=== PATIENT | male | born 1950 | race Caucasian/White ===

== ENCOUNTER → 2016-10-27 | Outpatient (CLI) | payer MEDICARE ==
[2016-10-27 17:16] LABS: Blood Urea Nitrogen 20 mg/dL (9-20); Non-African American GFR(MDRD) >60 (>60 ml/min/1.73 sqM)
--- NOTE | 2016-10-27 18:45 | CT ---
EXAMINATION TYPE: CT neck chest w con DATE OF EXAM: 10/27/2016 5:52 PM COMPARISON: 11/26/2015 HISTORY: Pt states of follow up after tongue CA. CT DLP: 2338.7 mGycm Automated exposure control for dose reduction was used. CONTRAST: CT scan of the neck is performed following with IV Contrast, patient injected with 100 mL of Omnipaqu e 300. Axial images are obtained, coronal and sagittal reformatted images are reviewed. FINDINGS: Trachea appears normal. There is no evidence of a pharyngeal mass. There is normal contrast opacifica tion of the carotid arteries and jugular veins. There is atherosclerotic calcification in the carotid arteries. Parotid glands are symmetric. The right submandibular salivary gland is small or absent. I see no sign of a mass involving the tongue. Thyroid gland is symmetric. There is normal branching pattern of the great vessels on the aortic arch. The lungs are clear of consolidation. There is no evidence of a pulmonary mass. I see no mediastinal adenopathy. There are no hilar masses. There is no pericardial effusion. There is no pleural effusion . There is degenerative spurring in the cervical and thoracic spine. There are multiple calcified gal lstones. There is coronary artery calcification. IMPRESSION: Gallstones. Coronary artery calcification. Atherosclerotic vascular disease. I see no ev idence of recurrent tumor or metastatic disease in this patient with a history of tongue cancer. No a dverse change compared to old exam. There is hypoplastic or absent right submandibular salivary gland without change.
== END ==
LOC: RADCTMAIN 16:03
DX: K80.80 Other cholelithiasis without obstruction (principal); I25.10 Atherosclerotic heart disease of native coronary artery without angina pectoris; I70.90 Unspecified atherosclerosis; C80.1 Malignant (primary) neoplasm, unspecified
CPT/HCPCS: 82565; 84443; 84520; 70491; 71260; 36415; Q9967

== ENCOUNTER → 2016-12-08 | Outpatient (CLI) | payer MEDICARE ==
--- NOTE | 2016-12-09 14:51 | XR ---
EXAMINATION TYPE: XR lumbosacral spine min 4V DATE OF EXAM: 12/08/2016 3:06 PM COMPARISON: NONE HISTORY: Low back pain TECHNIQUE: 5 view lumbar spine FINDINGS: Facet degenerative changes are present. There 5 lumbar-type vertebral bodies. The pedicles are intact. Spondylosis is present. Disc space narrowing is present L3-4. Posterior disc space narrow ing is present L2-3. Disc space narrowing is present to the L5-S1 disc level. IMPRESSION: 1. Degenerative disc changes and facet changes. 2. No acute osseous abnormality.
== END ==
LOC: RADXRYALE 14:48
PROVIDERS: ATTEND Physician Assistant Medical
DX: M51.36 Other intervertebral disc degeneration, lumbar region (principal)
CPT/HCPCS: 72110

== ENCOUNTER → 2017-09-14 | Outpatient (CLI) | payer MEDICARE ==
[2017-09-14 19:01] LABS: Blood Urea Nitrogen 26 mg/dL (9-20)
--- NOTE | 2017-09-15 08:37 | CT ---
EXAMINATION TYPE: CT neck chest w con DATE OF EXAM: 09/14/2017 7:37 PM COMPARISON: 10/27/2016 HISTORY: Right side lump near jaw area. Follow-up for tongue carcinoma CT DLP: 2314.5 mGycm Automated exposure control for dose reduction was used. CONTRAST: CT scan of the neck is performed following with IV Contrast, patient injected with 100 mL of Omnipaqu e 300. Axial images are obtained, coronal and sagittal reformatted images are reviewed. FINDINGS: Airway: The right piriform sinus is not well delineated, unchanged from the prior exam. No gross evid ence for tumor recurrence at the tongue base. Parotid/submandibular glands: Parotid glands are described below with slight atrophy of the right in comparison with the left and likely surgical absence of the right submandibular gland. Carotid/Vascular Structures: There is a normal anatomic branching pattern of the carotid arteries. Th ere is hemodynamically significant stenosis at the right carotid bulb of stenosis of greater than 70% (approximately 75%). The left carotid bulb is tortuous and contains approximately 60% focal stenosis over a short segment of approximately 1 cm on series 4 image 56. The internal carotid arteries demon strate no evidence of hemodynamically significant stenosis. The left vertebral artery is extremely diminutive in caliber with calcific plaquing at its origin fro m the left subclavian. The right vertebral artery is dominant. Osseous Structures: Moderate multilevel degenerative changes of the visualized cervical thoracic spin e are noted. Other: There is minimal right-sided facial skin thickening in comparison to the left, notably at the patient's described palpable abnormality on series 4 image 59 and 60. This measures up to 6 mm as opp osed to the left measuring 2 mm. Deep to the BB marker for a palpable abnormality on the vasculature in the sternocleidomastoid muscle are noted. No lymphadenopathy. The right parotid gland is minimally atrophic in comparison to the left, which may also relate to prior posttreatment change in this ina ent with a history of tongue base cancer. Moderate mucosal thickening is seen within the maxillary sinuses. Remaining visualized paranasal sinu ses are well aerated as are the mastoid air cells. LUNGS: Mild centrilobular emphysematous changes are seen within the lung apices. No new nodule, focal consolidation, or pleural effusion. Prominent subpleural fat is again noted. MEDIASTINUM: The heart is enlarged with three-vessel moderate coronary artery calcifications. No óscar opathy within the mediastinum or axilla. UPPER ABDOMEN: Multiple hypoattenuated renal lesions are seen, some of which are too small to accurat justo characterize and others represent renal cysts. Cholelithiasis is redemonstrated. Left renal sinus cyst is incidentally noted. IMPRESSION: 1. No CT abnormality deep to the BB marker for the palpable abnormality near the right jaw. The bills ocleidomastoid and vasculature are seen deep to the BB marker. However, there is asymmetric right ski n thickening in comparison to the left, which may represent posttreatment change in this patient with a history of tongue base cancer. 2. No new adenopathy within the neck or chest. No discrete mass at the tongue base to indicate recurr ence. 3. Hemodynamically significant stenosis of the right carotid bulb of greater than 70% and approximate ly 60% stenosis of the left carotid bulb. 4. Cholelithiasis, bilateral renal cysts and other renal lesions that are too small to accurately ebony racterize.
== END | disposition home or self-care (01) ==
LOC: RADCTMAIN 18:24
PROVIDERS: ATTEND Internal Medicine Hematology & Oncology
DX: C02.9 Malignant neoplasm of tongue, unspecified (principal); I65.23 Occlusion and stenosis of bilateral carotid arteries
CPT/HCPCS: 82565; 84520; 70491; 71260; 36415; Q9967

== ENCOUNTER → 2018-08-05 | Outpatient (CLI) | payer MEDICARE ==
--- NOTE | 2018-08-05 14:19 | XR ---
EXAMINATION TYPE: XR shoulder complete LT DATE OF EXAM: 08/05/2018 CLINICAL HISTORY: Increasing left shoulder pain TECHNIQUE: Three views of the left shoulder are obtained. COMPARISON: CT neck and chest October 27, 2016 FINDINGS: There is no acute fracture/dislocation evident in the left shoulder. The acromioclavicula r joint space appears within normal limits. Advanced glenohumeral joint arthropathy is seen with freddie ed joint space loss and joint space sclerosis on internally rotated view, inferior spur from medial h umeral head is noted . Overlying sternal wires and mediastinal clips are present. The visualized ribs are intact and unremarkable. IMPRESSION: There is advanced glenohumeral joint arthropathy.
== END | disposition home or self-care (01) ==
LOC: RADXRYALE 13:44
PROVIDERS: ATTEND Physician Assistant Medical
DX: M19.012 Primary osteoarthritis, left shoulder (principal)

== ENCOUNTER → 2018-09-15 | Outpatient (CLI) | payer MEDICARE ==
--- NOTE | 2018-09-15 15:53 | CT ---
EXAMINATION TYPE: CT chest w con DATE OF EXAM: 09/15/2018 COMPARISON: 09/14/2017 HISTORY: 68-year-old male Swelling to right side of neck and difficulty swallowing. History of tongue cancer. TECHNIQUE: Contiguous axial scanning of the chest after the administration of 100 mL of Isovue 300. Coronal/sagittal reconstructions performed. CT DLP: 958.19mGycm. Automatic exposure control utilized for a dose reduction. FINDINGS: Heart remains mildly enlarged without pericardial effusion. Extensive coronary vessel calcifications are present. Median sternotomy wires are present with post-CABG changes. Mild aneurysm ascending aorta 4.1 cm, relatively unchanged. Mild atherosclerotic arch calcifications with conventional arch vessel branching anatomy. Moderate atherosclerotic narrowing at the origin of the right subclavian artery, refer to axial image 9. A large caliber to the main right and left pulmonary arteries at 2.8 and 2.7 cm, respectively, sugges ts underlying pulmonary hypertension. No thoracic lymphadenopathy. Visualized upper abdomen again shows gallstones and number of hypodense renal lesions, likely cysts. Many are too small fractured CT characterization. No consolidation or pleural effusion. No suspicious pulmonary nodule or mass. Some strandy atelectasi s or scarring at the posterior lung bases and some prominent subpleural fat deposition here. Bones: Endplate spondylosis mid to lower thoracic spine. No osseous destructive process. IMPRESSION: 1. Cardiomegaly with post-CABG changes. Findings suggest underlying pulmonary arterial hypertension. 2. Stable 4.1 cm aneurysm ascending aorta. Moderate atherosclerotic narrowing at the origin of the ri ght subclavian artery. 3. No evidence for metastatic disease in the chest. 4. Cholelithiasis and redemonstrated numerous hypodense renal lesions, likely cysts.
== END | disposition home or self-care (01) ==
LOC: RADCTMAIN 12:44
PROVIDERS: ATTEND Internal Medicine Hematology & Oncology
DX: C02.9 Malignant neoplasm of tongue, unspecified (principal); I51.7 Cardiomegaly; I71.2 Thoracic aortic aneurysm, without rupture; I70.8 Atherosclerosis of other arteries; Z95.1 Presence of aortocoronary bypass graft
CPT/HCPCS: 71260

== ENCOUNTER → 2018-09-15 | Outpatient (CLI) | payer MEDICARE ==
--- NOTE | 2018-09-15 15:48 | CT ---
EXAMINATION TYPE: CT soft tissue neck w con DATE OF EXAM: 09/15/2018 COMPARISON: 09/14/2017 HISTORY: 68-year-old male Swelling to right side of neck and difficulty swallowing. History of tongue cancer. TECHNIQUE: Contiguous axial scanning of the soft tissues of the neck performed with IV Contrast, ina ent injected with 100 mL of Isovue 300. Coronal/sagittal reconstructions performed. CT DLP: 840.58 mGycm Automated exposure control for dose reduction was used. FINDINGS: Visualized intracranial structures, orbits and globes, and mastoid air cells appear clear. Trace muco alber thickening right maxillary sinus. Nasopharynx appears clear. Retropharyngeal course of the ICAs causing posterior pharyngeal impression at the level of the oropha rynx and hypopharynx. Some minimal nodularity in the region of the left vallecular space suggests evie gual tonsillar hypertrophy. Similar circumferential narrowing in the region of the hypopharynx likely due to abundant soft tissue s. Epiglottis and prevertebral soft tissues otherwise within normal limits. Glottic and subglottic structures appear within normal limits. Focal anterior indentation of the upper trachea just above the level of the sternal notch with associ ated calcification likely corresponds to a site of prior tracheostomy. Some asymmetric mild fat stranding in the subcutaneous adipose layer below the right jaw and along th e right anterolateral neck. Thyroid gland appears satisfactory. The right submandibular gland is atrophic. Bilateral parotid glan ds show no discrete abnormality. Scattered nonenlarged lymph nodes are present on both sides of the neck. No cervical lymphadenopathy identified by CT size criteria. Redemonstrated is severe atherosclerotic calcifications at the right carotid bulb and moderate at the left carotid bulb. Bones: Moderate to severe cervical spondylosis throughout. Reversal of the normal cervical lordosis. IMPRESSION: 1. Similar circumferential narrowing of the oropharynx and hypopharynx likely due to combination of a bundant soft tissues and retropharyngeal course of the ICAs. 2. Minimal nodularity in the region of the left vallecular space likely due to lingual tonsillar hype rtrophy. Direct visualization is indicated. 3. Some mild fat stranding along the right side of the neck and atrophy of the right submandibular gl and probably product of posttreatment change. 4. No suspicious neck mass or cervical lymphadenopathy seen. 5. Findings again suggest severe atherosclerotic stenosis right carotid bulb and moderate at the left carotid bulb. 6. Some deformity and associated calcifications to the anterior wall of the upper trachea likely clif esponds to the site of prior tracheostomy.
== END | disposition home or self-care (01) ==
LOC: RADCTMAIN 12:43
PROVIDERS: ATTEND Otolaryngology
DX: J39.2 Other diseases of pharynx (principal); K11.0 Atrophy of salivary gland; J39.8 Other specified diseases of upper respiratory tract
CPT/HCPCS: 82565; 84520; 70491; 36415; Q9967

== ENCOUNTER 2020-03-14 11:42 | Day surgery (SDC) | payer MEDICARE ==
[2020-03-12 09:13] VITALS: BMI 52.4
[~2020-03-14 11:42] MED LIST: DEXAMETHASONE SOD PHOSPHATE 10 MG/ML 1 ML VIAL IV ONE; ONDANSETRON 4 MG/2 ML VIAL IVP ONE; ceFAZolin 3 GM in SODIUM CHLORIDE 0.9% 100 ML IVPB ONE
[2020-03-14] MEDS ORDERED: ONDANSETRON 4 MG/2 ML VIAL ONE (12:33)
[2020-03-14] MEDS ORDERED: LIDOCAINE 1% (10MG/ML) FOR IV START INTRADERMA ONE (12:35)
[2020-03-14] MEDS: LACTATED RINGERS 1,000 ML IV SCH ×3 (12:36→17:41)
[2020-03-14 12:38] LABS: Glucose,Whole Blood 106 mg/dL (75-99)
[2020-03-14] MEDS ORDERED: MIDAZOLAM 2 MG/2 ML VIAL ONE (14:21)
[2020-03-14] MEDS ORDERED: SUCCINYLCHOLINE CHLORIDE VIAL 200 MG/10 ML VIAL IV ONE (14:21)
[2020-03-14] MEDS ORDERED: fentaNYL (PF) 50 MCG/ML 2 ML AMP ONE (14:21)
[2020-03-14] MEDS ORDERED: PROPOFOL 10 MG/ML 20 ML VIAL IV ONE (14:21)
[2020-03-14] MEDS ORDERED: LIDOCAINE 1% INJ 10MG/ML (20 ML MDV) ONE (14:21)
--- NOTE | 2020-03-14 16:19 | FL ---
EXAMINATION TYPE: FL guidance operating room, XR ankle complete LT DATE OF EXAM: 03/14/2020 CLINICAL HISTORY: Left ankle fracture. TECHNIQUE: Fluoroscopy. Complete 3 views left ankle. COMPARISON: None. FINDINGS: Fluoroscopic guidance was provided during open reduction and internal fixation procedure p erformed by Dr. Florentino. A total of roughly 25 seconds of fluoroscopic time was utilized during the pr ocedure and four spot intraoperative images are acquired. Images requires replacement lateral fixating plate with satisfactory alignment through probable fract ure lateral malleolus not well-seen on images 8. Additional tiny fixating washer at the level of medi al malleolus noted. Ankle mortise symmetry preserved. IMPRESSION: As Above.
--- NOTE | 2020-03-14 16:39 | P.OP ---
Date of Procedure: 03/14/20 Procedure(s) Performed: PREOPERATIVE DIAGNOSES: 1. Left ankle lateral malleolus comminuted displaced fracture, Kulkarni C bimalleolar-equivalent fracture 2. Left ankle syndesmosis disruption, distal tibio-fibular joint 3. Obesity POSTOPERATIVE DIAGNOSES: 1. Left ankle lateral malleolus comminuted displaced fracture 2. Left ankle syndesmosis disruption, disal tibio-fibular joint 3. Severe exogenous obesity with BMI 52. PROCEDURES PERFORMED: 1. Left ankle lateral malleolus fracture open reduction and internal fixation. 2. Left ankle reduction and fixation of syndesmosis disruption with [employer] Tightrope system ANESTHESIA: preform plate maker: Liliam Cisneros PA-C (assistance with exposure, hemostasis, retraction, fixation, closure, dressing, splint) COMPLICATIONS: None ESTIMATED BLOOD LOSS: Less than 10 mL. TOURNIQUET: approximately 70 minutes DISPOSITION: To post-anesthesia care unit INDICATIONS: The patient is an obese male with a history of borderline diabetes, who presents to the operating room today for fixation of left ankle fracture. The fracture is a Kulkarni C, with a fracture of the lateral malleolus that is high enough to produce talar instability. The medial malleolus appears intact. There does appear to be some degree of syndesmotic disruption which I plan to fix with [employer] Tightrope(s). I have discussed these issues with the patient, who wishes to proceed with the operative plan. I have explained the details of this surgery thoroughly and also explained the potential risks and complications. These are inclusive of, but not limited to: bleeding, infection, scarring, discomfort, blood vessel and nerve damage, stiffness, weakness, need for further surgery, failure to relieve symptoms, persistence or worsening of problems, , and other risks. The patient is aware of these risks, and that her risk is especially increased by his obesity, and agrees to proceed with surgery. He understands that diabetes can increase risk of several complications. The consent form has been signed. PROCEDURE: After appropriate consent was obtained, the patient was taken to the operating room and placed supine on the operating table. General anesthesia was initiated. The ankle was removed from the splint and examined for any signs of significant fracture blisters or swelling that would prevent continuation of the surgery. Skin appeared healthy and intact, swellling was moderate but not excessive. The limb was prepped and draped in the usual aseptic fashion with ChloraPrep, and the patient was given IV antibiotics. The tourniquet was then inflated to 350 mmHg after careful exsanguination of the limb. Time out was called, confirming patient identity, side, procedure, and administration of antibiotics. Incision was created laterally, centered over the fracture site, for a length of approximately 9 inches. The incision was carried down through skin and into subcutaneous tissues, and blunt dissection then proceeded down to fascia. Fascia was split in line with the incision and the peroneal muscles were retracted posteriorly. The fracture site was exposed with subperiosteal dissection for as much exposure of the bone as was necessary. Fracture hematoma was evacuated and the interior of the fracture site was meticulously cleansed with irrigation and manual extraction of organizing hematoma and bone debris. The fracture was minimally comminuted and oblique in orientation. The fracture was mobilized using a cam elevator and reduction was accomplished using a bone clamp, which was also used to secure the fracture. Anatomic reduction was accomplished. An interfragmentary screw was not able to be placed secondary to the shape of the fibula and comminution. Next, a locking fibular plate from [employer] was selected for size and side. It was minimally contoured to match the contour of the posterior lateral fibula. The proximal holes were filled with fully threaded 3.5 mm bicortical screws. Distal holes were filled with 2.7 mm cortical locking screws. A tightrope was then placed through the bottom screw hole of the lateral plate, guided with C-arm imaging. The syndesmosis was held in a reduced position with manual pressure. A clamp was used to hold the position. The syndesmosis was held together and the tight rope was then deployed and tightened. Prior to cutting the sutures, the ankle was taken through range of motion and stress testing under C-arm imaging which showed excellent reduction of both the syndesmosis and the talus. The talus was stable to external rotation force as well as lateral shuck testing and extremes of flexion and extension. Screw lengths were noted to be appropriate and the incision was then irrigated thoroughly using normal saline. Tourniquet was deflated and hemostasis was obtained using electrocautery. Fascial closure was performed with 0-Vicryl suture, subcutaneous closure with 2-0 Vicryl suture. Skin was closed with running subcuticular stitch and cyanoacrylate topical dressing. Sterile dressing was applied and well padded soft dressing was applied with the ankle in neutral. The patient's equalizer boot was placed. Patient tolerated the procedure well and taken to recovery room in stable condition. Sponge and needle counts were correct.Patient tolerated the procedure well and taken to recovery room in stable condition. Sponge and needle counts were correct.
[2020-03-14] MEDS ORDERED: diphenhydrAMINE 25 MG CAP PO PRN (16:43)
[2020-03-14] MEDS ORDERED: HYDROmorphone 0.5 MG/0.5 ML SYRINGE IVP PRN ×3 (16:43)
[2020-03-14] MEDS ORDERED: SENNOSIDES-DOCUSATE SODIUM 1 EACH TAB PO PRN (16:43)
[2020-03-14] MEDS ORDERED: HYDROcodone/APAP 5-325MG 1 EACH TAB PO PRN (16:43)
[2020-03-14] MEDS ORDERED: ONDANSETRON 4 MG/2 ML VIAL IVP PRN (16:43)
[2020-03-14] MEDS: HYDROmorphone 0.5 MG/0.5 ML SYRINGE IVP PRN ×4 (16:45→17:00)
[2020-03-14] MEDS ORDERED: ALBUTEROL NEBULIZED 2.5 MG/3 ML INHALATION ONE (16:50)
[2020-03-14] MEDS ORDERED: NON FORMULARY DRUG (Omega-3 Fatty Acids/Fish Oil [Fish Oil 1,000 Mg Softgel] 1 EACH) PO SCH (18:00)
[2020-03-14] MEDS: HYDROcodone/APAP 5-325MG 1 EACH TAB PO PRN (18:51)
[2020-03-14 20:23] LABS: Glucose,Whole Blood 163 mg/dL (75-99)
[2020-03-14] MEDS: INSULIN ASPART (NovoLOG) 100 UNIT/ML VIAL SQ SCH (20:52)
[2020-03-14] MEDS: CHOLECALCIFEROL 1,000 UNIT TAB PO SCH (20:53)
[2020-03-14] MEDS: ASPIRIN 81 MG PO SCH (20:53)
[2020-03-14] MEDS: lisinopriL 20 MG TAB PO SCH (20:55)
[2020-03-14] MEDS ORDERED: ATORVASTATIN 80 MG TAB PO SCH (21:00)
[2020-03-14] MEDS: ceFAZolin 3 GM in SODIUM CHLORIDE 0.9% 100 ML IVPB SCH (22:30)
[2020-03-15] MEDS: HEPARIN SODIUM,PORCINE 5,000 UNIT/ML 1 ML VIAL SQ SCH ×2 (00:03→08:35)
[2020-03-15] MEDS: LACTATED RINGERS 1,000 ML IV SCH ×2 (01:07→02:45)
[2020-03-15] MEDS: HYDROcodone/APAP 5-325MG 1 EACH TAB PO PRN (01:07)
--- NOTE | 2020-03-15 01:27 | CONS ---
CONSULTATION REASON FOR CONSULTATION: Advice regarding hypertension and other multiple medical issues requested by Dr. Florentino. HISTORY OF PRESENT ILLNESS: This 69-year-old gentleman with a past medical history of hypertension, hyperlipidemia, history of myocardial infarction, history of DJD being followed by Dr. Spencer Wilkins in the outpatient setting underwent left ankle lateral malleolus fracture ORIF and as well as left ankle reduction and fixation of the syndesmosis disruption with [employer] Tightrope system. The patient tolerated the procedure well. Patient is having some pain in the foot. Otherwise, there is no history of fever, rigors. No history of headache, loss of consciousness, seizures at this time. PAST MEDICAL HISTORY: History of hypertension, hyperlipidemia, myocardial infarction, DJD, history of borderline diabetes, history of CAD, CABG. MEDICATIONS: Medications prior to admission include Glucophage, Lipitor, Altace, fish oil, aspirin, metoprolol, multivitamin, Imdur, folic acid. Doses are reviewed. ALLERGIES: None. FAMILY HISTORY: History of cancer in the family. SOCIAL HISTORY: History of alcohol occasional. REVIEW OF SYSTEMS: ENT: No diminished hearing or diminished vision. CARDIOVASCULAR SYSTEM: No angina. RESPIRATORY SYSTEM: No cough or hemoptysis. GI: No nausea. : No dysuria. NERVOUS SYSTEM: No numbness or weakness. ALLERGY/IMMUNOLOGY: No asthma or hayfever. MUSCULOSKELETAL: As mentioned earlier. HEMATOLOGY: No history of anemia. ENDOCRINE: Diabetes mellitus. CONSTITUTIONAL: As mentioned earlier. DERMATOLOGY: Negative. RHEUMATOLOGY: Negative. PSYCHIATRY: As mentioned earlier. PHYSICAL EXAMINATION: The patient is alert and oriented x3. Pulse 72, blood pressure 128/69, respiration 20, temperature 97.8, pulse ox 95% on 2 L. HEENT: Conjunctivae normal. Oral mucosa moist. NECK: No jugular venous distention. No carotid bruit. No lymph node enlargement. CARDIOVASCULAR: S1, S2 muffled. No S3, no S4. RESPIRATORY: Breath sounds diminished at the bases. No rhonchi. No crackles. ABDOMEN: Soft. Nontender. No mass palpable. LEGS: Status post left ankle ORIF. NERVOUS SYSTEM: No focal deficits. SKIN: No ulcer, rash or bleeding. JOINTS: As mentioned earlier. LABS: Glucose 106. The previous labs are coags and chemistry are noted. ASSESSMENT: 1. Status post left ankle lateral malleolus fracture open reduction and internal fixation and left ankle reduction and fixation of the syndesmosis disruption. 2. Diabetes mellitus type 2. 3. Hypertension. 4. Hyperlipidemia. 5. Myocardial infarction. 6. History of degenerative joint disease. 7. History of sleep apnea. 8. History of CPAP. 9. History of coronary artery disease, coronary artery bypass grafting. 10.Remote history of nicotine dependence. 11.Obesity with body mass index of 52.5. RECOMMENDATIONS AND DISCUSSION: This 69-year-old gentleman who presented with multiple complex medical issues, we will monitor the patient closely. Continue the current medications. Continue symptomatic treatment. I would recommend resume the home medications, Accu-Cheks a.c. and at bedtime and insulin scale. Otherwise, heparin subcu for DVT prophylaxis and the home medication may be resumed. Follow the patient closely with you and patient may be asked to follow up with primary physician closely. Thank you Dr. Florentino for letting us participate in the care of this patient. MARE / SUNSHINE: [id number] /
[2020-03-15 03:31] VITALS: RESP 16
[2020-03-15] MEDS: ceFAZolin 3 GM in SODIUM CHLORIDE 0.9% 100 ML IVPB SCH (05:55)
[2020-03-15 07:30] LABS: Glucose,Whole Blood 142 mg/dL (75-99)
[2020-03-15] MEDS: INSULIN ASPART (NovoLOG) 100 UNIT/ML VIAL SQ SCH ×2 (08:35→12:25)
[2020-03-15] MEDS: ASPIRIN 81 MG PO SCH (08:36)
[2020-03-15] MEDS: lisinopriL 20 MG TAB PO SCH (08:36)
[2020-03-15] MEDS: CHOLECALCIFEROL 1,000 UNIT TAB PO SCH (08:37)
[2020-03-15] MEDS ORDERED: ISOSORBIDE MONONITRATE ER 30 MG TAB.ER.24H PO SCH (09:00)
[2020-03-15] MEDS ORDERED: METOPROLOL SUCCINATE (ER) 100 MG TAB.ER.24H PO SCH (09:00)
[2020-03-15] MEDS ORDERED: MULTIVITAMINS, THERA 1 EACH TAB PO SCH (09:00)
[2020-03-15] MEDS ORDERED: ASPIRIN 81 MG PO SCH (09:00)
[2020-03-15] MEDS ORDERED: metFORMIN 500 MG TAB PO SCH (09:00)
--- NOTE | 2020-03-15 09:26 | P.DS ---
Providers Expected date of discharge: 03/15/20 Attending physician: Collins Florentino Consults: 03/14/20 16:43 Consult Physician Routine Consulting Provider: aTrik Chirinos Consult Reason/Comments: Medical management Do you want consulting provider notified?: Yes Primary care physician: Spencer Wilkins - Discharge Diagnosis(es) (1) Fracture of ankle, left, closed Current Visit: Yes Status: Acute (2) Status post open reduction and internal fixation (ORIF) of fracture Current Visit: Yes Status: Acute Hospital Course: The patient is an obese male with a history of borderline diabetes, who presents to the operating room on 03/14/2020 for fixation of left ankle fracture. The fracture is a Kulkarni C, with a fracture of the lateral malleolus that is high enough to produce talar instability. The medial malleolus appears intact. There does appear to be some degree of syndesmotic disruption which I plan to fix with Arthrex Tightrope(s). I have discussed these issues with the patient, who wishes to proceed with the operative plan. I have explained the details of this surgery thoroughly and also explained the potential risks and complications. These are inclusive of, but not limited to: bleeding, infection, scarring, discomfort, blood vessel and nerve damage, stiffness, weakness, need for further surgery, failure to relieve symptoms, persistence or worsening of problems, , and other risks. The patient is aware of these risks, and that her risk is especially increased by his obesity, and agrees to proceed with surgery. He understands that diabetes can increase risk of several complications. The patient did very well on postoperative day 1 with physical therapy. He is up with minimal assistance. He is able to maintain nonweightbearing status to the left lower extremity. He may be discharged to home today. Please see med rec for accurate list of home medications. Plan - Discharge Summary Discharge Rx Participant: Yes New Discharge Prescriptions: New Aspirin [Adult Low Dose Aspirin EC] 81 mg PO BID #1 tablet. HYDROcodone/APAP 5-325MG [[place] 5-325] 1 - 2 each PO Q4-6H PRN #50 tab PRN Reason: Pain Sennosides-Docusate Sodium [Senokot-S] 1 tab PO BID #60 tablet No Action Isosorbide Mononitrate ER [Imdur] 30 mg PO QAM Cholecalciferol [Vitamin D3 (25 Mcg = 1000 Iu)] 1,000 unit PO BID Atorvastatin [Lipitor] 80 mg PO HS metFORMIN HCL [Glucophage] 500 mg PO QAM Ramipril [Altace] 10 mg PO BID Multivitamins, Thera [Multivitamin (formulary)] 1 tab PO QAM Metoprolol Succinate [Toprol XL] 200 mg PO QAM [place]-3 Fatty Acids/Fish Oil [Fish Oil 1,000 mg Softgel] 1 each PO QID Aspirin [Adult Low Dose Aspirin EC] 81 mg PO DAILY Discharge Medication List Aspirin [Adult Low Dose Aspirin EC] 81 mg PO DAILY 03/12/20 [History] Atorvastatin [Lipitor] 80 mg PO HS 03/12/20 [History] Cholecalciferol [Vitamin D3 (25 Mcg = 1000 Iu)] 1,000 unit PO BID 03/12/20 [ History] Isosorbide Mononitrate ER [Imdur] 30 mg PO QAM 03/12/20 [History] Metoprolol Succinate [Toprol XL] 200 mg PO QAM 03/12/20 [History] Multivitamins, Thera [Multivitamin (formulary)] 1 tab PO QAM 03/12/20 [History] [place]-3 Fatty Acids/Fish Oil [Fish Oil 1,000 mg Softgel] 1 each PO QID 03/12/20 [History] Ramipril [Altace] 10 mg PO BID 03/12/20 [History] metFORMIN HCL [Glucophage] 500 mg PO QAM 03/12/20 [History] Aspirin [Adult Low Dose Aspirin EC] 81 mg PO BID #1 tablet. 03/15/20 [Rx] HYDROcodone/APAP 5-325MG [[place] 5-325] 1 - 2 each PO Q4-6H PRN #50 tab 03/15/20 [Rx] Sennosides-Docusate Sodium [Senokot-S] 1 tab PO BID #60 tablet 03/15/20 [Rx] Follow up Appointment(s)/Referral(s): Liliam Cisneros, JAZMINE [PHYSICIAN MEDICAID SERVICE COORDINATOR] - 2 Weeks Activity/Diet/Wound Care/Special Instructions: Nonweightbearing left lower extremity with walker. May change dressing to 3 days postop but may leave in place. Equalizer boot left lower extremity. Discharge Disposition: HOME WITH HOME HEALTH SERVICES
[2020-03-15 09:47] VITALS: BP 133/74; PULSE 54; TEMP 98.6
[2020-03-15 11:37] LABS: Glucose,Whole Blood 132 mg/dL (75-99)
--- NOTE | 2020-03-15 18:33 | PN ---
PROGRESS NOTE DATE OF SERVICE: 03/15/2020 This 69-year-old gentleman who was admitted after left ankle ORIF is being closely monitored. No chest pain. No palpitations. No fever. PHYSICAL EXAMINATION: Alert and oriented x3. Pulse is 54, blood pressure 130/70, respiration 20, temperature 98.6, pulse ox 92% on 2 L. HEENT: Conjunctivae normal. NECK: No jugular venous distention. CARDIOVASCULAR SYSTEM: S1, S2 muffled. RESPIRATORY SYSTEM: Breath sounds diminished at the bases. No rhonchi. No crackles. ABDOMEN: Soft, non-tender. LEGS: Status post surgery. NERVOUS SYSTEM: No focal deficit. LABS: Accu-Cheks 142, 132. ASSESSMENT: 1. Status post left ankle lateral malleolus fracture open reduction internal fixation as well as left ankle reduction fixation of the syndesmosis disruption. 2. Diabetes mellitus, type 2. 3. Hypertension. 4. Hyperlipidemia. 5. History of myocardial infarction. 6. History of degenerative joint disease. 7. History of sleep apnea. 8. History of CPAP. 9. History of coronary artery disease, coronary artery bypass grafting. 10.Remote history of nicotine dependence. 11.Obesity with body mass index of 52.5. RECOMMENDATIONS AND DISCUSSION: I recommend to continue current medications, continue with the monitoring, symptomatic treatment. I would recommend resuming the home medications. Follow with primary physician. Continue incentive spirometry, DVT prophylaxis per Orthopedics. The rest of the recommendations per Orthopedics. Further recommendations to follow. MMESTEPHANIA / IJN: [id number] /
== END 2020-03-15 13:27 | disposition home health service (06) ==
LOC: OR 11:42 → 4SSUR 16:41 → OR 03-15 13:27
PROVIDERS: ATTEND Orthopaedic Surgery
DX: S82.62XA Displaced fracture of lateral malleolus of left fibula, initial encounter for closed fracture (principal); S93.432A Sprain of tibiofibular ligament of left ankle, initial encounter; X50.1XXA Overexertion from prolonged static or awkward postures, initial encounter; E66.01 Morbid (severe) obesity due to excess calories; E11.9 Type 2 diabetes mellitus without complications; I11.0 Hypertensive heart disease with heart failure; I50.32 Chronic diastolic (congestive) heart failure; I25.810 Atherosclerosis of coronary artery bypass graft(s) without angina pectoris; I25.5 Ischemic cardiomyopathy; I65.23 Occlusion and stenosis of bilateral carotid arteries; G47.33 Obstructive sleep apnea (adult) (pediatric); I25.10 Atherosclerotic heart disease of native coronary artery without angina pectoris; I25.2 Old myocardial infarction; E78.2 Mixed hyperlipidemia; Z79.84 Long term (current) use of oral hypoglycemic drugs; Z79.899 Other long term (current) drug therapy; Z79.82 Long term (current) use of aspirin; Z85.810 Personal history of malignant neoplasm of tongue; Z97.3 Presence of spectacles and contact lenses; Z98.890 Other specified postprocedural states; Z87.891 Personal history of nicotine dependence; Z68.43 Body mass index [BMI] 50.0-59.9, adult; Z95.1 Presence of aortocoronary bypass graft; Z82.49 Family history of ischemic heart disease and other diseases of the circulatory system
CPT/HCPCS: 97161; 97165; 73610; 27792; 27829; C1713; J2250; J0330; J1644; J1100; J0690 ×2; J2405; J2001; J3010; J2704; J1170

== ENCOUNTER → 2020-06-27 | Outpatient (CLI) | payer MEDICARE ==
--- NOTE | 2020-06-27 14:43 | CT ---
EXAMINATION TYPE: CT neck chest w con DATE OF EXAM: 06/27/2020 COMPARISON: CT chest and neck September 15, 2018 and older CTs. Prior PET CTs 2011. HISTORY: Tongue cancer progress study. Automated Exposure Control for Dose Reduction was Utilized. TECHNIQUE: CT scan of the neck and thorax are performed following with IV Contrast, patient injected with 100 mL of Isovue 300. FINDINGS: NECK: Airway: Artifact from dental work redemonstrated makes evaluation of this level slightly suboptimal. Nasopharyngeal airway remains patent. Oropharyngeal airway demonstrates slight leftward deviation wit h fullness of the left piriform sinus again seen and stable suggesting some lingular tonsillar hypert rophy. Stable circumferential soft tissue prominence in region of hypopharynx. No new suspicious foca l enhancing mass. Prior tracheostomy site with irregularity and calcification axial image 67 redemons trated. Parotid/submandibular glands: Severely atrophied or absent right submandibular gland redemonstrated. Left submandibular gland atrophy again seen. Carotid/Vascular Structures: Tortuous medial course to the carotid arteries bilaterally redemonstrate d with moderate to severe plaque at carotid bulb level again seen. Osseous Structures: Reversal of normal cervical curvature with moderate to severe multilevel disc spa ce narrowing and moderate multilevel anterior and lateral spurring. Other: Stable mild fatty infiltrate right submandibular region axial image 49. Suspect posttreatment change. Stable few prominent but subcentimeter lymph nodes. No new greater than 1 cm neck adenopathy. CHEST: LUNGS: The lungs remain grossly clear, there is no concerning new parenchymal mass or nodule identifi ed. There is no pleural effusion or pneumothorax seen. The tracheobronchial tree is patent. MEDIASTINUM: There are no new greater than 1 cm hilar or mediastinal lymph nodes. No pericardial ef fusion is seen. Cardiomegaly is redemonstrated. Post-CABG changes with mediastinal clips and sternal wires is again seen. Stable ascending aortic aneurysm up to 4.1 cm axial image 22. Prominent right a nd left pulmonary arteries are stable. OTHER: Multiple small stones in gallbladder dependently again seen. Scattered small hypodense lesions throughout both kidneys favor simple thin-walled cysts. Moderate to severe multilevel spurring in th e spine. IMPRESSION: No suspicious new mass or adenopathy to suggest active neoplastic recurrence.
== END | disposition home or self-care (01) ==
LOC: RADCTMAIN 12:51
PROVIDERS: ATTEND Internal Medicine Hematology & Oncology
DX: C02.9 Malignant neoplasm of tongue, unspecified (principal); E11.9 Type 2 diabetes mellitus without complications; Z79.84 Long term (current) use of oral hypoglycemic drugs
CPT/HCPCS: 82565; 84520; 70491; 71260; 36415; Q9967

== ENCOUNTER → 2020-07-11 | Outpatient (CLI) | payer MEDICARE ==
[2020-07-11 14:47] LABS: HCT 44.6 % (39.0-53.0); HGB 14.5 gm/dL (13.0-17.5); MCHC 32.4 g/dL (31.0-37.0); MCV 95.7 fL (80.0-100.0); Mean Platelet Volume 7.1; Platelet Count 240 k/uL (150-450); RBC 4.66 m/uL (4.30-5.90); RDW 15.1 % (11.5-15.5); WBC 9.5 k/uL (3.8-10.6)
[2020-07-11 18:45] LABS: African American GFR (CKD) 63.2 (60.0-200.0); Anion Gap 7.4 mmol/L (4.00-12.00); BUN/Creat Ratio 14.62 Ratio (12.00-20.00); Calcium 9.4 mg/dL (8.7-10.3); Carbon Dioxide 32.6 mmol/L (21.6-31.8); Non-African American GFR(CKD) 54.5 (60.0-200.0); Potassium 4.6 mmol/L (3.5-5.5)
== END | disposition home or self-care (01) ==
LOC: LABWHC1 13:37
PROVIDERS: ATTEND Internal Medicine Cardiovascular Disease
DX: I48.0 Paroxysmal atrial fibrillation (principal)
CPT/HCPCS: 36415; 80048; 84443; 85027

== ENCOUNTER → 2021-04-25 | Day surgery (SDC) | payer MEDICARE ==
[2021-04-24 08:52] VITALS: BMI 49.0
[~2021-04-25] MED LIST changes: -DEXAMETHASONE SOD PHOSPHATE 10 MG/ML 1 ML VIAL IV ONE; -ONDANSETRON 4 MG/2 ML VIAL IVP ONE; +SODIUM CHLORIDE 0.9% 1,000 ML IV SCH; -ceFAZolin 3 GM in SODIUM CHLORIDE 0.9% 100 ML IVPB ONE
== END ==
LOC: CATHEP 14:14
PROVIDERS: ATTEND Internal Medicine Clinical Cardiac Electrophysiology
DX: Z53.9 Procedure and treatment not carried out, unspecified reason (principal)

== ENCOUNTER 2021-04-30 06:09 | Day surgery (SDC) | payer MEDICARE ==
[2021-04-26 08:42] VITALS: BMI 49.0
[~2021-04-30 06:09] MED LIST changes: +LACTATED RINGERS 1,000 ML IV SCH
[2021-04-30] MEDS ORDERED: SODIUM CHLORIDE 0.9% 1,000 ML IV ONE (06:13)
[2021-04-30 06:38] LABS: Glucose,Whole Blood 137 mg/dL (75-99)
[2021-04-30 06:57] LABS: Anisocytosis Slight; Basophils % (A) 0 %; Eosinophils # (A) 0.3 k/uL (0-0.7); Eosinophils % (A) 4 %; HCT 50.3 % (39.0-53.0); HGB 16.2 gm/dL (13.0-17.5); Lymphocytes # (A) 1.8 k/uL (1.0-4.8); Lymphocytes % (A) 21 %; MCH 31.3 pg (25.0-35.0); MCHC 32.2 g/dL (31.0-37.0); MCV 97.4 fL (80.0-100.0); Macrocytosis Slight; Mean Platelet Volume 7.5; Monocytes # (A) 0.6 k/uL (0-1.0); Monocytes % (A) 7 %; Neutrophils # (A) 5.4 k/uL (1.3-7.7); Neutrophils % (A) 64 %; Platelet Count 240 k/uL (150-450); RBC 5.17 m/uL (4.30-5.90); RDW 16.6 % (11.5-15.5); WBC 8.4 k/uL (3.8-10.6)
[2021-04-30 07:12] LABS: Potassium 3.8 mmol/L (3.5-5.1)
[2021-04-30] MEDS ORDERED: DEXAMETHASONE SOD PHOSPHATE 4 MG/ML 1 ML VIAL ONE (07:29)
[2021-04-30] MEDS ORDERED: ePHEDrine SULFATE/0.9% NACL/PF 50 MG/5 ML SYRINGE IV ONE (07:29)
[2021-04-30] MEDS ORDERED: HEPARIN SODIUM,PORCINE 5,000 UNIT/ML 1 ML VIAL ONE (07:29)
[2021-04-30] MEDS ORDERED: MIDAZOLAM 2 MG/2 ML VIAL ONE (07:29)
[2021-04-30] MEDS ORDERED: SUCCINYLCHOLINE CHLORIDE 100 MG/5 ML SYR IV ONE (07:29)
[2021-04-30] MEDS ORDERED: PHENYLEPHRINE-0.9% NACL SYG 1,000 MCG/10 ML SYRINGE ONE (07:29)
[2021-04-30] MEDS ORDERED: ONDANSETRON 4 MG/2 ML VIAL ONE (07:29)
[2021-04-30] MEDS ORDERED: fentaNYL (PF) 50 MCG/ML 2 ML AMP ONE (07:29)
[2021-04-30] MEDS ORDERED: FUROSEMIDE 10 MG/ML 2 ML VIAL ONE (07:29)
[2021-04-30] MEDS ORDERED: PROPOFOL 10 MG/ML 20 ML VIAL IV ONE (07:29)
[2021-04-30] MEDS ORDERED: LIDOCAINE 1% INJ 10MG/ML (20 ML MDV) ONE (07:43)
[2021-04-30] MEDS ORDERED: LIDOCAINE 1% INJ 10MG/ML (20 ML MDV) SQ ONE (08:15)
[2021-04-30] MEDS ORDERED: HEPARIN SODIUM (1,000 UNIT/ML) 1,000 UNIT in SODIUM CHLORIDE 0.9% 1,000 ML IRRIGATION ONE (08:24)
[2021-04-30] MEDS ORDERED: ACETAMINOPHEN IV (For NPO) 1,000 MG in EMPTY BAG 1 BAG IVPB ONE (10:14)
[2021-04-30] MEDS ORDERED: ACETAMINOPHEN TAB 325 MG TAB PO PRN (10:14)
--- NOTE | 2021-04-30 10:35 | P.PRLE ---
RE: Jeremy Rooney Dear Dr. Claudette Luna underwent successful atrial flutter ablation with complete bidirectional block On intracardiac echo, his LV function appeared normal during sinus rhythm However he has a prolonged MA interval with a right bundle branch block and I would recommend stopping metoprolol at this time His right atrium is significantly enlarged and he also has an enlarged left atrium Is quite likely that in the future he will develop atrial fibrillation but this is an opportunity for some preventative care I have recommended the patient to abstain from alcohol consumption completely, continue with his CPAP/sleep apnea treatment, hypertension control and a bit of weight loss He will continue ELIQUIS and his other medications unchanged and will follow with you and Dr. Medrano as before Thank you for entrusting me with the care of the patient Warm regards Sincerely Thompson Weebr
--- NOTE | 2021-04-30 13:42 | CE ---
CARDIAC ELECTROPHYSIOLOGY REPORT Mr. Rooney is a 70-year-old male patient who has typical atrial flutter with RVR, who is on 200 mg of metoprolol. He complains of tiredness, fatigue, shortness of breath, despite rate control. He was brought in for an atrial flutter ablation. Preoperatively, a mild cardiomyopathy was also noted. The patient was brought to the EP lab in a fasting state. Written informed consent was obtained prior to the procedure. The procedure was performed under general anesthesia. Three venous sheaths were placed in the right femoral vein, and via these diagnostic and mapping and ablation and intracardiac echo catheters were placed. The patient was in atrial flutter at the start of the study, and the flutter cycle length was 264 milliseconds. Baseline measurements revealed a right bundle branch block pattern with a QRS width of 193 milliseconds, and later his AR interval was almost 250 milliseconds, QT interval 493 milliseconds, and in sinus rhythm his sinus cycle length was 811 milliseconds. AH interval during sinus rhythm was 144 milliseconds, HV interval was 74 milliseconds. In sinus rhythm, sinus node recovery times at 600 and 500 milliseconds were 1055 and 849 milliseconds. AV node Wenckebach block 220 milliseconds, VA Wenckebach block greater than 600 milliseconds. At the start of the study, entrainment mapping was performed from the cavotricuspid isthmus, and concealed entrainment was demonstrated. Following that, the patient underwent an electrical cardioversion to sinus rhythm. Atrial flutter ablation was then performed in sinus rhythm. Intracardiac echo was used to demonstrate absence of any pericardial effusion. There was no thrombus in the left atrial appendage. Smoke was noted in the right atrium. The right atrium was extremely enlarged. The left atrium was enlarged. IV heparin was given during the procedure. Three-dimensional mapping with intracardiac echo: This was followed by electroanatomic mapping of the cavotricuspid isthmus. RF ablation was performed from the tricuspid isthmus to the IVC/eustachian ridge. A complete line of block was made anatomically. Isthmus conduction times greater than 210 milliseconds in either direction. Bidirectional block was proven with differential pacing. Following ablation, intracardiac echo revealed normal LV function and the absence of any pericardial effusion and absence of any left atrial thrombus in sinus rhythm. His AH interval during sinus rhythm was 144 milliseconds and HV interval was 74 milliseconds. The patient tolerated the procedure well without any acute complications. Vascade MVP was used to seal the venous access sites. No hematoma was noted at the end of the procedure. He was extubated successfully and transferred to telemetry. IMPRESSION: Successful atrial flutter ablation with demonstration of complete bidirectional block. PROCEDURES PERFORMED: Comprehensive diagnostic EP study, CS pacing recording, 3D electroanatomic mapping, intracardiac echo, electrical cardioversion, and ablation for atrial flutter. MMODL / IJN: [id number] /
[2021-04-30] MEDS ORDERED: ATORVASTATIN 80 MG TAB PO SCH (21:00)
[2021-04-30] MEDS: lisinopriL 20 MG TAB PO SCH (22:01)
[2021-04-30] MEDS: APIXABAN 5 MG TAB PO SCH (22:01)
[2021-04-30] MEDS: ASPIRIN 81 MG PO SCH (22:01)
[2021-05-01 07:45] VITALS: BP 138/78; PULSE 82; RESP 14; TEMP 97.7
[2021-05-01] MEDS: lisinopriL 20 MG TAB PO SCH (08:19)
[2021-05-01] MEDS: APIXABAN 5 MG TAB PO SCH (08:19)
[2021-05-01] MEDS: ASPIRIN 81 MG PO SCH (08:19)
[2021-05-01] MEDS ORDERED: METOPROLOL SUCCINATE 200 MG PO SCH (09:00)
[2021-05-01] MEDS ORDERED: metFORMIN 500 MG TAB PO SCH (09:00)
[2021-05-01] MEDS ORDERED: FUROSEMIDE 20 MG TAB PO SCH (09:00)
--- NOTE | 2021-05-01 16:50 | DS ---
DISCHARGE SUMMARY Jeremy Rooney is a 70-year-old male patient of Dr. Arce and Dr. Wilkins who has typical atrial flutter and is very symptomatic from it. He underwent successful atrial flutter ablation. Today this morning he is ambulating around the hallways. His breathing is a lot better. He feels a lot better. His heart sounds are normal. His blood pressure is in the normal range. His groins have healed well. Lungs are clear. IMPRESSION: 1. Typical atrial flutter sustained and persistent. 2. Successful atrial flutter ablation. 3. Right bundle branch block with first-degree AV block and bradycardia. 4. Morbid obesity. 5. Obstructive sleep apnea. 6. History of alcohol use, patient is cutting down alcohol intake. PLAN: 1. Stop metoprolol completely. He will see Dr. Arce in a week's time and we will perhaps resume beta blockers at lower dose depending upon his NE interval and his heart rate. He does have a prolonged QT interval as well as right bundle branch block and tendency for bradycardia. 2. Weight reduction. 3. Complete abstinence from alcohol use. 4. Sleep apnea treatment. 5. Weight reduction for morbid obesity. The patient may go home today. He must continue anticoagulation and see Dr. Arce in a week's time. MMODL / IJN: [id number] /
== END 2021-05-01 10:57 | disposition home or self-care (01) ==
LOC: CATHEP 06:09 → 6NMEDSUR 10:53 → CATHEP 05-01 10:57
PROVIDERS: ATTEND Internal Medicine Clinical Cardiac Electrophysiology
DX: I48.3 Typical atrial flutter (principal); I42.9 Cardiomyopathy, unspecified; I45.10 Unspecified right bundle-branch block; G47.33 Obstructive sleep apnea (adult) (pediatric); Z87.891 Personal history of nicotine dependence; I48.91 Unspecified atrial fibrillation; E78.5 Hyperlipidemia, unspecified; I11.0 Hypertensive heart disease with heart failure; I50.9 Heart failure, unspecified; Z95.1 Presence of aortocoronary bypass graft; Z79.899 Other long term (current) drug therapy; Z85.810 Personal history of malignant neoplasm of tongue; Z92.3 Personal history of irradiation
CPT/HCPCS: 92960; 93662; 93613; 93653; 80048; 84443; 85025; C1894 ×2; C1769 ×2; C1760; C1766; C1730; C1759; C1732; J2250; J1644 ×2; J1100; J1940; J2405; J2001; J3010; J0131; J2370; J0330; J2704

== ENCOUNTER → 2021-07-30 | Day surgery (SDC) | payer MEDICARE ==
[2021-07-26 14:24] VITALS: BMI 50.1
[2021-07-30 08:46] LABS: Glucose,Whole Blood 137 mg/dL (75-99)
[2021-07-30 08:47] VITALS: BP 206/131; PULSE 97; RESP 18; TEMP 98.2
--- NOTE | 2021-07-30 10:34 | P.HPCAR ---
History of Present Illness This is Dr. Weber dictating an H/P and discharge on this patient The patient was interviewed and examined IMPRESSION / ASSESSMENT: History of atrial fibrillation, symptomatic with tiredness fatigue shortness of breath Status post atrial flutter ablation in the past Right bundle-branch block, first-degree AV block to sinus rhythm Central obesity PLAN: Patient was scheduled for cryoablation the pulmonary veins today for A. fib management He denied any fever or chills but he did have symptoms prior to Thanksgiving Today his PCR covid test is positive and the procedure is being canceled and rescheduled after a month He is being discharged home He is stable from a respiratory standpoint no shortness of breath at rest or c ough expectoration HPI Patient has a history of atrial fibrillation. He complains of tiredness fatigue and shortness of breath He also has swelling in the legs. No chest discomfort no loss of consciousness Prior to he had a cough but he did not get tested for covid He was supposed to get his Covid test done 72 hours prior to the procedure However he did not get this test done This morning his Covid test is positive The procedure was canceled. He is being discharged home. He is stable from a respiratory and a cardio vascular standpoint He's been asked quarantine for the next 14 days and follow-up with his PCP thereafter If there is any change in symptoms he will call his PCP We will reschedule the procedure after one month ROS: No fever chills or rigors, no cough, phlegm or expectoration, no nausea, vomiting or diarrhea, no hematuria, dysuria, no musculoskeletal complaints, no strokes or seizures, no skin lesions. EXAMINATION: Afebrile 98.2F, pulse rate in the 90s regular, blood pressure 175/85 Nonlabored breathing Able to lie flat in bed comfortably Wet sounds are reduced bilaterally no rhonchi no crackles Heart sounds S1 and S2 are normal no murmurs No lower extremity edema Abdomen is soft No JVD REVIEW OF LABS, ECG & MEDICAL DATA Positive Covid test White count 8000, hemoglobin 16.5, platelet count 259,000 Sodium 144, potassium 4.5 BUN 18 and creatinine 1.3 Discharge summary line patient came in for an A. fib ablation He has had symptoms about 2 weeks back with cough but he was not tested for Covid He is Covid positive today He'll be discharged home today and we will reschedule procedure after 4 weeks He is stable from a cardiovascular standpoint He will continue his cardiac medications including metoprolol succinate ELIQUIS 5 mg twice daily aspirin atorvastatin He may continue his diabetes medications and ramipril Physical Exam Vitals: Vital Signs Temp Pulse Resp BP Pulse Ox 07/30/21 09:12 175/85 07/30/21 08:46 98.2 F 97 18 206/131 95 Intake and Output 07/29/21 07/30/21 07/30/21 22:59 06:59 14:59 Intake Total 20 Balance 20 Intake: IV 20 Other: Weight 141.3 kg Past Medical History Past Medical History: Atrial Fibrillation, Atrial Flutter, Cancer, Diabetes Mellitus, Hyperlipidemia, Hypertension, Myocardial Infarction (ID), Osteoarthritis (OA), Sleep Apnea/CPAP/BIPAP Additional Past Medical History / Comment(s): Hx Cancer of tongue, 8 yrs ago. Borderline Diabetic. Uses CPAP. SEE DR WEBER H&P Last Myocardial Infarction Date:: 20 yrs History of Any Multi-Drug Resistant Organisms: None Reported Past Surgical History: Coronary Bypass/CABG, Orthopedic Surgery Additional Past Surgical History / Comment(s): Quadruple Bypass 15 yrs ago, surgery of tongue 8, Lymph Node removed from leg. 8 screws, and 9 inch plate to repair fx left ankle, tracheostomy and then closed Past Anesthesia/Blood Transfusion Reactions: No Reported Reaction Additional Past Anesthesia/Blood Transfusion Reaction / Comment(s): hx of tracheostomy Smoking Status: Former smoker - Past Family History Daughter(s) Family Medical History: Cancer Physical Examination Vital Signs Temp Pulse Resp BP Pulse Ox 07/30/21 09:12 175/85 07/30/21 08:46 98.2 F 97 18 206/131 95 Intake and Output 07/29/21 07/30/21 07/30/21 22:59 06:59 14:59 Intake Total 20 Balance 20 Intake: IV 20 Other: Weight 141.3 kg Results Current Medications Generic Name Dose Route Start Last Admin Trade Name Freq PRN Reason Stop Dose Admin Lactated Ringer's 1,000 mls @ 20 mls/hr 07/30/21 06:08 Lactated Ringers IV 08/29/21 06:09 .Q24H RUBY Sodium Chloride 1,000 mls @ 20 mls/hr 07/30/21 06:08 07/30/21 08:48 Saline 0.9% IV 08/29/21 06:09 20 mls .Q24H RUBY Administration Intake and Output 07/29/21 07/30/21 07/30/21 22:59 06:59 14:59 Intake Total 20 Balance 20 Intake: IV 20 Other: Weight 141.3 kg Patient Weight 07/31/21 06:59 Weight 141.3 kg
--- NOTE | 2021-07-30 10:36 | P.DS ---
Providers Attending physician: Thompson Weber Primary care physician: [facility] Course: IMPRESSION / ASSESSMENT: History of atrial fibrillation, symptomatic with tiredness fatigue shortness of breath Status post atrial flutter ablation in the past Right bundle-branch block, first-degree AV block to sinus rhythm Central obesity PLAN: Patient was scheduled for cryoablation the pulmonary veins today for A. fib management He denied any fever or chills but he did have symptoms prior to Thanksgiving Today his PCR covid test is positive and the procedure is being canceled and rescheduled after a month He is being discharged home He is stable from a respiratory standpoint no shortness of breath at rest or cough expectoration HPI Patient has a history of atrial fibrillation. He complains of tiredness fatigue and shortness of breath He also has swelling in the legs. No chest discomfort no loss of consciousness Prior to he had a cough but he did not get tested for covid He was supposed to get his Covid test done 72 hours prior to the procedure However he did not get this test done This morning his Covid test is positive The procedure was canceled. He is being discharged home. He is stable from a respiratory and a cardio vascular standpoint He's been asked quarantine for the next 14 days and follow-up with his PCP thereafter If there is any change in symptoms he will call his PCP We will reschedule the procedure after one month ROS: No fever chills or rigors, no cough, phlegm or expectoration, no nausea, vomiting or diarrhea, no hematuria, dysuria, no musculoskeletal complaints, no strokes or seizures, no skin lesions. EXAMINATION: Afebrile 98.2F, pulse rate in the 90s regular, blood pressure 175/85 Nonlabored breathing Able to lie flat in bed comfortably Wet sounds are reduced bilaterally no rhonchi no crackles Heart sounds S1 and S2 are normal no murmurs No lower extremity edema Abdomen is soft No JVD REVIEW OF LABS, ECG & MEDICAL DATA Positive Covid test White count 8000, hemoglobin 16.5, platelet count 259,000 Sodium 144, potassium 4.5 BUN 18 and creatinine 1.3 Discharge summary patient came in for an A. fib ablation He has had symptoms about 2 weeks back with cough but he was not tested for Covid He is Covid positive today He'll be discharged home today and we will reschedule procedure after 4 weeks He is stable from a cardiovascular standpoint He will continue his cardiac medications including metoprolol succinate ELIQUIS 5 mg twice daily aspirin atorvastatin He may continue his diabetes medications and ramipril Plan - Discharge Summary Discharge Rx Participant: No New Discharge Prescriptions: No Action Isosorbide Mononitrate ER [Imdur] 30 mg PO QAM Cholecalciferol [Vitamin D3 (25 Mcg = 1000 Iu)] 1,000 unit PO BID Atorvastatin [Lipitor] 80 mg PO HS metFORMIN HCL [Glucophage] 500 mg PO QAM Ramipril [Altace] 10 mg PO BID Multivitamins, Thera [Multivitamin (formulary)] 1 tab PO QAM Aspirin [Adult Low Dose Aspirin EC] 81 mg PO BID #1 tablet. Furosemide [Lasix] 20 mg PO DAILY Apixaban [Eliquis] 5 mg PO BID Metoprolol Succinate (ER) [Toprol Xl] 50 mg PO DAILY Discharge Medication List Atorvastatin [Lipitor] 80 mg PO HS 03/12/20 [History] Cholecalciferol [Vitamin D3 (25 Mcg = 1000 Iu)] 1,000 unit PO BID 03/12/20 [History] Isosorbide Mononitrate ER [Imdur] 30 mg PO QAM 03/12/20 [History] Multivitamins, Thera [Multivitamin (formulary)] 1 tab PO QAM 03/12/20 [History] Ramipril [Altace] 10 mg PO BID 03/12/20 [History] metFORMIN HCL [Glucophage] 500 mg PO QAM 03/12/20 [History] Aspirin [Adult Low Dose Aspirin EC] 81 mg PO BID #1 tablet. 03/15/20 [Rx] Apixaban [Eliquis] 5 mg PO BID 04/24/21 [History] Furosemide [Lasix] 20 mg PO DAILY 04/24/21 [History] Metoprolol Succinate (ER) [Toprol Xl] 50 mg PO DAILY 07/26/21 [History]
== END ==
LOC: CATHEP 08:01
PROVIDERS: ATTEND Internal Medicine Clinical Cardiac Electrophysiology
DX: I48.91 Unspecified atrial fibrillation (principal); U07.1 COVID-19; Z53.8 Procedure and treatment not carried out for other reasons; R53.83 Other fatigue; R06.02 Shortness of breath; I48.92 Unspecified atrial flutter; I45.10 Unspecified right bundle-branch block; I44.30 Unspecified atrioventricular block
CPT/HCPCS: 87635

== ENCOUNTER → 2021-08-13 | Outpatient (CLI) | payer MEDICARE ==
--- NOTE | 2021-08-13 15:58 | XR ---
Right finger HISTORY: Swelling and pain 2 views the right finger At the level the proximal interphalangeal joint of the fifth digit of the right hand there is margina l erosion, overhanging edges, cystic lucency within the adjoining bone, question some small soft tiss ue calcifications. There is associated soft tissue swelling. IMPRESSION: Findings consistent with gout, infection felt to be less likely, correlate.
== END | disposition home or self-care (01) ==
LOC: RADXRYALE 15:19
PROVIDERS: ATTEND Family Medicine
DX: M79.644 Pain in right finger(s) (principal); M79.89 Other specified soft tissue disorders

== ENCOUNTER → 2021-09-02 | Outpatient (CLI) | payer MEDICARE ==
[2021-09-02 10:17] LABS: HCT 50.1 % (39.0-53.0); HGB 15.9 gm/dL (13.0-17.5); MCH 31.8 pg (25.0-35.0); MCHC 31.8 g/dL (31.0-37.0); MCV 99.9 fL (80.0-100.0); Macrocytosis Slight; Mean Platelet Volume 7.6; Platelet Count 210 k/uL (150-450); RBC 5.01 m/uL (4.30-5.90); RDW 14.5 % (11.5-15.5); WBC 8.3 k/uL (3.8-10.6)
[2021-09-02 10:55] LABS: Potassium 4.8 mmol/L (3.5-5.1)
== END | disposition home or self-care (01) ==
LOC: LABPAT 08:58
PROVIDERS: ATTEND Internal Medicine Clinical Cardiac Electrophysiology
DX: Z01.812 Encounter for preprocedural laboratory examination (principal); I48.11 Longstanding persistent atrial fibrillation; Z20.822 Contact with and (suspected) exposure to COVID-19
CPT/HCPCS: 80051; 82565; 84520; 85027; 36415; U0003; C9803

== ENCOUNTER 2021-09-05 11:23 | Day surgery (SDC) | payer MEDICARE ==
[2021-08-29 09:31] VITALS: BMI 50.8
[~2021-09-05 11:23] MED LIST changes: +DEXAMETHASONE SOD PHOSPHATE 4 MG/ML 1 ML VIAL IV ONE; +LIDOCAINE 1% (10MG/ML) FOR IV START INTRADERMA PRN; +MORPHINE SULFATE 2 MG/ML SYRINGE IV PRN; +ONDANSETRON 4 MG/2 ML VIAL IVP PRN
[2021-09-05] MEDS ORDERED: SODIUM CHLORIDE 0.9% 1,000 ML IV ONE (11:40)
[2021-09-05 12:04] LABS: Glucose,Whole Blood 127 mg/dL (75-99)
[2021-09-05] MEDS ORDERED: PROPOFOL 10 MG/ML 20 ML VIAL IV ONE (13:10)
[2021-09-05] MEDS ORDERED: MIDAZOLAM 2 MG/2 ML VIAL ONE (13:10)
[2021-09-05] MEDS ORDERED: ceFAZolin 1,000 MG VIAL ONE (13:10)
[2021-09-05] MEDS ORDERED: ePHEDrine 50 MG/ML 1 ML AMP ONE (13:10)
[2021-09-05] MEDS ORDERED: fentaNYL (PF) 50 MCG/ML 2 ML AMP ONE (13:10)
[2021-09-05] MEDS ORDERED: SUCCINYLCHOLINE CHLORIDE VIAL 200 MG/10 ML VIAL IV ONE (13:10)
[2021-09-05] MEDS ORDERED: HEPARIN SODIUM,PORCINE 10,000 UNIT/ML 1 ML VIAL ONE (13:10)
[2021-09-05] MEDS ORDERED: SODIUM CHLORIDE 0.9% 100 ML BAG ONE (13:10)
[2021-09-05] MEDS ORDERED: PHENYLEPHRINE-0.9% NACL SYG 1,000 MCG/10 ML SYRINGE ONE (13:10)
[2021-09-05] MEDS ORDERED: LIDOCAINE 1% INJ 10MG/ML (20 ML MDV) ONE ×2 (13:10→13:58)
[2021-09-05] MEDS ORDERED: HEPARIN SOD,PORK IN 0.45% NACL 25,000 UNIT in 0.45% NACL 1 250ML.BAG IV ONE (13:56)
[2021-09-05] MEDS ORDERED: LIDOCAINE 1% INJ 10MG/ML (20 ML MDV) SQ ONE (14:00)
[2021-09-05] MEDS ORDERED: ACETAMINOPHEN TAB 325 MG TAB PO PRN (16:16)
[2021-09-05] MEDS ORDERED: IOPAMIDOL-370 100ML BTL INJ ONE (16:22)
[2021-09-05] MEDS ORDERED: LACTATED RINGERS 1,000 ML IV ONE (16:26)
--- NOTE | 2021-09-05 16:28 | P.HPCAR ---
History of Present Illness This is Dr. 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 fib ablation Continue ELIQUIS HPI Patient continues to have shortness of breath on exertion. He has a mild cardio myopathy He complains of palpitations He was supposed to have this procedure performed last month but he developed cold. He is a call from this completely No cough expectoration no fever chills ROS: No fever chills or rigors, no cough, phlegm or expectoration, no nausea, vomiting or diarrhea, no hematuria, dysuria, no musculoskeletal complaints, no strokes or seizures, no skin lesions. EXAMINATION: He is resting comfortably in bed Breath sounds are clear no rhonchi no crackles Heart sounds are irregular No lower extremity edema No JVD No orthopnea REVIEW OF LABS, ECG & MEDICAL DATA Glucose 127 Sodium 139 potassium 4.8 BUN 35 creatinine 1.2 TSH 3.6 Physical Exam Vitals: Vital Signs Temp Pulse Resp BP Pulse Ox 09/05/21 12:21 98.2 F 94 20 200/97 92 L Intake and Output 09/05/21 09/05/21 09/05/21 06:59 14:59 22:59 Intake Total 1045 Balance 1045 Intake: IV 1045 Other: Weight 145.7 kg Past Medical History Past Medical History: Atrial Fibrillation, Cancer, Diabetes Mellitus, Hyperlipidemia, Hypertension, Myocardial Infarction (RI), Osteoarthritis (OA), Sleep Apnea/CPAP/BIPAP Additional Past Medical History / Comment(s): Hx Cancer of tongue, 8 yrs ago. Borderline Diabetic. Uses CPAP. SEE DR WEBER H&P Last Myocardial Infarction Date:: 20 yrs History of Any Multi-Drug Resistant Organisms: None Reported Past Surgical History: Coronary Bypass/CABG Additional Past Surgical History / Comment(s): Quadruple Bypass 15 yrs ago, surgery of tongue 8, Lymph Node removed from leg. Past Anesthesia/Blood Transfusion Reactions: No Reported Reaction Past Alcohol Use History: Occasional - Past Family History Daughter(s) Family Medical History: Cancer Physical Examination Vital Signs Temp Pulse Resp BP Pulse Ox 09/05/21 12:21 98.2 F 94 20 200/97 92 L Intake and Output 09/05/21 09/05/21 09/05/21 06:59 14:59 22:59 Intake Total 1045 Balance 1045 Intake: IV 1045 Other: Weight 145.7 kg Results Current Medications Generic Name Dose Route Start Last Admin Trade Name Freq PRN Reason Stop Dose Admin Acetaminophen 650 mg 09/05/21 16:16 Acetaminophen Tab 325 Mg Tab PO 10/05/21 16:17 Q6HR PRN Mild Pain Apixaban 5 mg 09/05/21 21:00 Apixaban 5 Mg Tab PO 10/05/21 21:01 BID [facility] Protocol Atorvastatin Calcium 80 mg 09/05/21 21:00 Atorvastatin 80 Mg Tab PO 10/05/21 21:01 [facility] Furosemide 20 mg 09/06/21 09:00 Furosemide 20 Mg Tab PO 10/06/21 09:01 DAILY [facility] Acetaminophen 1,000 mg/ IV 100 mls @ 400 mls/hr 09/05/21 16:16 Solution IVPB 09/05/21 16:30 ONCE ONE Isosorbide Mononitrate 30 mg 09/06/21 09:00 Isosorbide Mononitrate Er 30 Mg Tab.Er.24h PO 10/06/21 09:01 QAM [facility] Lidocaine HCl 0.1 ml 09/05/21 05:59 Lidocaine 1% (10mg/Ml) For Iv Start INTRADERMA 10/05/21 06:00 PER PROTOCOL PRN IV Start Metoprolol Succinate 50 mg 09/06/21 09:00 Metoprolol Succinate (Er) 50 Mg Tab.Er.24h PO 10/06/21 09:01 DAILY [facility] Morphine Sulfate 2 mg 09/05/21 07:00 Morphine Sulfate 2 Mg/Ml Syringe IV 09/05/21 23:00 Q5M PRN Pain Control Non-Formulary Medication 81 mg 09/05/21 21:00 Aspirin [Adult Low Dose Aspirin Ec] PO 10/05/21 21:01 BID [facility] Non-Formulary Medication 10 mg 09/05/21 21:00 Ramipril [Altace] PO 10/05/21 21:01 BID [facility] Ondansetron HCl 4 mg 09/05/21 07:00 Ondansetron 4 Mg/2 Ml Vial IVP 09/05/21 23:00 ONCE PRN Phase I - Nausea And Vomiting Sodium Chloride 12 ml 09/05/21 21:00 Sodium Chloride 0.9% Flush 10 Ml Syringe IV 10/05/21 21:01 Q12HR RUBY Intake and Output 09/05/21 09/05/21 09/05/21 06:59 14:59 22:59 Intake Total 1045 Balance 1045 Intake: IV 1045 Other: Weight 145.7 kg Patient Weight 09/06/21 06:59 Weight 145.7 kg
--- NOTE | 2021-09-05 16:35 | P.EPPROC ---
- EP Procedure Note Electrophysiology Procedure Note: PROCEDURE A. fib ablation/PVI DIAGNOSIS Atrial fibrillation, symptomatic, refractory to therapy, persistent Underlying cardio myopathy ejection fraction 40-45% with CHF RESULT No left atrial appendage mass seen on intracardiac echo Successful A. fib ablation/pulmonary vein isolation of all veins using cryo- ablation Complete entrance block in all 4 veins confirmed Large pulmonary veins with multiple tributaries especially of the left inferior, right superior and right inferior pulmonary veins No evidence for phrenic nerve injury Esophageal deflection YES, right-sided esophagus Electrical cardioversion with a synchronized shock across the chest YES / NO PROCEDURE DETAILS Patient was brought to the EP lab in a fasting state after obtaining written informed consent. Procedure performed under general anesthesia Esophagus was intubated. Esophageal temperature monitoring with circa catheter. Esophageal deflection with an endoscope to avoid hypothermia of the esophagus. After initial muscle relaxant use, muscle relaxants were not given thereafter in order to assess phrenic nerve during procedure. Patient prepped and draped as per protocol Cryo ablation-set up with standard preparation of the cryoablation tools done. Femoral Venous access obtained on the right and left groins and sheaths placed Diagnostic catheters for the high right atrium, phrenic nerve stimulation and pacing, His bundle, coronary sinus placed Intracardiac echo catheter placed. Long sheath placed in the right atrium Left and right transseptal catheterization performed under intracardiac echo guidance. Intravenous heparin with aCT above 300 Later, catheter positioning and balloon positioning in the left atrium and pulmonary veins, under intracardiac echo guidance Diagnostic EP study with coronary sinus pacing and recording Baseline measurements: QRS 155, right bundle branch block pattern, MD interval 210 ms, sinus cycle length 863 ms AH 93 and HV 78 Transseptal catheterization performed RA pressure 20/14/18 LA pressure 26/12/20 Transseptal catheterization performed with standard sheath. The cryoablation sheath was then placed with an over the wire exchange without any acute complications. The cryoablation balloon was placed in the office of each pulmonary vein and all 4 pulmonary veins were isolated. IV dye was injected to confirm occlusion. Goal: achieve complete occlusion of the pulmonary vein, achieve -30 degrees C at 30 seconds and achieve -40 degrees C at 60 seconds and a time to effect of less than 60 seconds. If not, the balloon was repositioned to obtain this result After completion of Cryoblation with durations from 180-240 seconds, entrance block was confirmed with the Attain circular catheter in a roving fashion around the antrum of the pulmonary veins Phrenic nerve pacing was performed from the SVC, right innominate vein area and diaphragm voltage was monitored. Diaphragmatic contractions were also monitored manually for strength of contraction. At the end of the procedure the Achieve catheter was once again used to check for entrance block This was a long procedure on account of cardiac rotation and the size of the pulmonary veins along with the branching pattern of the tributaries In particular the left inferior pulmonary vein was difficult to occlude. There were multiple laboratories and each one was selectively engaged to get the best occlusion Finally excellent occlusion and temperatures obtained but it took and certainly longer than usual to do so The right superior pulmonary vein had large multiple tributaries and we encountered the same issue for this pain The right inferior pulmonary vein which is directly posterior to the superior vein also had multiple tributaries and multiple attempts were made, multiple tributaries are engaged to get the right rotation and complete occlusion This was also successfully ablated Phrenic nerve stimulation was performed to confirm diaphragmatic stimulation the end of the procedure Cine fluoroscopy was performed at the very end of the procedure to confirm movement of both diaphragms with inspiration and expiration At the end of the procedure the patient was extubated Venous sheaths were removed and hemostasis assured with a closure device PROCEDURES PERFORMED Diagnostic EP study CS pacing and recording Left and right transseptal catheterization Catheter the mapping of the tachycardia Intracardiac echocardiography Pulmonary vein isolation with transseptal and comprehensive EPS, 31312 Drug infusion, +[id number] Extended procedure/increased procedural sepsis Electrical cardioversion with a synchronized shock across the chest [id number]
--- NOTE | 2021-09-05 16:36 | P.PRLE ---
RE: Jeremy Rooney Dear Spencer Luna underwent cryoablation the pulmonary veins for persistent atrial fibrillation He had large pulmonary veins with multiple tributaries Reason successfully isolate He will continue his cardiac medications and follow with you and Dr. Medrano He will continue ELIQUIS lifelong Thank you for entrusting me with the care of the patient Warm regards Sincerely Thompson Weber
[2021-09-05] MEDS ORDERED: ACETAMINOPHEN IV (For NPO) 1,000 MG in EMPTY BAG 1 BAG IVPB ONE (17:00)
[2021-09-05] MEDS ORDERED: HYDROmorphone 0.5 MG/0.5 ML SYRINGE IVP ONE (17:33)
[2021-09-05] MEDS ORDERED: ATORVASTATIN 80 MG TAB PO SCH (21:00)
[2021-09-05] MEDS: ASPIRIN 81 MG PO SCH (21:40)
[2021-09-05] MEDS: APIXABAN 5 MG TAB PO SCH (21:40)
[2021-09-05] MEDS: lisinopriL 20 MG TAB PO SCH (21:41)
[2021-09-06] MEDS: ASPIRIN 81 MG PO SCH (07:02)
[2021-09-06] MEDS: lisinopriL 20 MG TAB PO SCH (07:03)
[2021-09-06] MEDS: APIXABAN 5 MG TAB PO SCH (07:03)
[2021-09-06 07:07] VITALS: BP 140/79; PULSE 94; RESP 16; TEMP 98
[2021-09-06] MEDS ORDERED: METOPROLOL SUCCINATE (ER) 50 MG TAB.ER.24H PO SCH (09:00)
[2021-09-06] MEDS ORDERED: ISOSORBIDE MONONITRATE ER 30 MG TAB.ER.24H PO SCH (09:00)
[2021-09-06] MEDS ORDERED: FUROSEMIDE 20 MG TAB PO SCH (09:00)
--- NOTE | 2021-09-06 12:04 | P.DS ---
Providers Attending physician: Thompson Weber Primary care physician: [facility] Course: Patient is doing well. No chest discomfort no dizziness lightheadedness or palpitations Rhythm is regular on telemetry He is sitting up comfortably in bed He's been ambulating in the room No groin issues on examination no hematoma in both groins Heart sounds S1-S2 normal and regular Breath sounds are clear no rhonchi no crackles Impression Pulmonary vein isolation cryoablation of the pulmonary veins Extended procedure on account of the pulmonary venous anatomy and cardiac rotation as described in the procedure note Successful and complete isolation of all pulmonary veins Plan Continue anticoagulation Continue all other cardiac medications and follow-up with Dr. Medrano next week Stable for discharge today Plan - Discharge Summary Discharge Rx Participant: Yes New Discharge Prescriptions: Continue RX: Isosorbide Mononitrate ER [Imdur] 30 mg PO QAM RX: Cholecalciferol [Vitamin D3 (25 Mcg = 1000 Iu)] 1,000 unit PO BID RX: Atorvastatin [Lipitor] 80 mg PO HS RX: metFORMIN HCL [Glucophage] 500 mg PO QAM RX: Ramipril [Altace] 10 mg PO BID RX: Multivitamins, Thera [Multivitamin (formulary)] 1 tab PO QAM RX: Aspirin [Adult Low Dose Aspirin EC] 81 mg PO BID #1 tablet. RX: Furosemide [Lasix] 20 mg PO DAILY RX: Apixaban [Eliquis] 5 mg PO BID RX: Metoprolol Succinate (ER) [Toprol XL] 50 mg PO DAILY Discharge Medication List RX: Atorvastatin [Lipitor] 80 mg PO HS 03/12/20 [History] RX: Cholecalciferol [Vitamin D3 (25 Mcg = 1000 Iu)] 1,000 unit PO BID 03/12/20 [History] RX: Isosorbide Mononitrate ER [Imdur] 30 mg PO QAM 03/12/20 [History] RX: Multivitamins, Thera [Multivitamin (formulary)] 1 tab PO QAM 03/12/20 [History] RX: Ramipril [Altace] 10 mg PO BID 03/12/20 [History] RX: metFORMIN HCL [Glucophage] 500 mg PO QAM 03/12/20 [History] RX: Aspirin [Adult Low Dose Aspirin EC] 81 mg PO BID #1 tablet. 03/15/20 [Rx] RX: Apixaban [Eliquis] 5 mg PO BID 04/24/21 [History] RX: Furosemide [Lasix] 20 mg PO DAILY 04/24/21 [History] RX: Metoprolol Succinate (ER) [Toprol XL] 50 mg PO DAILY 07/26/21 [History] Follow up Appointment(s)/Referral(s): Mau Arce MD [STAFF PHYSICIAN] - 1 Week Patient Instructions/Handouts: Cardiac Ablation (DC) Activity/Diet/Wound Care/Special Instructions: Post EP study - Ablation instructions 1. Keep access sites dry for 2 days. 2. No heavy lifting or straining for 2 days. 3. Avoid bending the hips repeatedly for 2 days. 4. You may go up and down stairs slowly Call if the following is noted 1. Bleeding, increasing swelling or pain at the access sites. 2. Increasing chest discomfort, especially upon taking a deep breath. 3. Increasing shortness of breath, at rest or with exertion. 4. Undue cough / phlegm 5. Difficulty or pain while swallowing. 6. Pain or change in color in the extremities. 7. Fever, chills, rigors. 8. Increasing headache or neurologic symptoms. 9. Dizziness, fainting, palpitations No change in medications Follow Dr. Arce within one to 2 weeks Discharge Disposition: HOME SELF-CARE
== END 2021-09-06 11:35 | disposition home or self-care (01) ==
LOC: CATHEP 11:23 → 6NMEDSUR 16:30 → CATHEP 09-06 11:35
PROVIDERS: ATTEND Internal Medicine Clinical Cardiac Electrophysiology
DX: I48.19 Other persistent atrial fibrillation (principal); I42.9 Cardiomyopathy, unspecified; I48.3 Typical atrial flutter; I45.10 Unspecified right bundle-branch block; I25.10 Atherosclerotic heart disease of native coronary artery without angina pectoris; I11.0 Hypertensive heart disease with heart failure; I50.22 Chronic systolic (congestive) heart failure; E78.5 Hyperlipidemia, unspecified; E11.9 Type 2 diabetes mellitus without complications; Z72.0 Tobacco use; Z95.1 Presence of aortocoronary bypass graft; Z79.84 Long term (current) use of oral hypoglycemic drugs; Z79.01 Long term (current) use of anticoagulants; Z79.82 Long term (current) use of aspirin; Z79.899 Other long term (current) drug therapy
CPT/HCPCS: 92960; 93623; 93656; C1894 ×2; C1769 ×5; C1760; C1730 ×2; C1759; C1893; C1733; C1766; J2250; J0330; J1644 ×2; J0690; J2001; J3010; J2370; J2704; J1170; Q9967

== ENCOUNTER → 2023-01-20 | Outpatient (CLI) | payer MEDICARE ==
--- NOTE | 2023-01-20 12:29 | XR ---
EXAMINATION TYPE: XR chest 2V DATE OF EXAM: 01/20/2023 12:05 PM COMPARISON: Chest radiographs from 12/13/2015 TECHNIQUE: XR chest 2V Frontal and lateral views of the chest. CLINICAL INDICATION:Male, 72 years old with history of [id number],[id number],I10 SOB,CHF,HEART DISEASE,HT N; FINDINGS: Lungs/Pleura: There is no evidence of pleural effusion, focal consolidation, or pneumothorax. Pulmonary vascularity: Pulmonary vascular congestion suggested. Heart/mediastinum: Cardiomediastinal silhouette is enlarged and stable. Musculoskeletal: No acute osseous pathology. IMPRESSION: Low lung volumes with a generalized hazy appearance which could represent atelectasis versus pulmonar y edema correlate with serum BNP.
== END | disposition home or self-care (01) ==
LOC: RADXRYALE 11:54
PROVIDERS: ATTEND Family Medicine
DX: I50.32 Chronic diastolic (congestive) heart failure (principal); I25.10 Atherosclerotic heart disease of native coronary artery without angina pectoris; I10 Essential (primary) hypertension
CPT/HCPCS: 71046

== ENCOUNTER 2023-01-23 12:57 | Inpatient (IN) | payer MEDICARE ==
[2023-01-23 14:17] LABS: Anisocytosis Slight; Basophils % (A) 0 %; Eosinophils # (A) 0.2 k/uL (0-0.7); Eosinophils % (A) 2 %; HGB 14.4 gm/dL (13.0-17.5); Hypochromasia Moderate; Lymphocytes % (A) 12 %; MCH 29.9 pg (25.0-35.0); MCHC 31.3 g/dL (31.0-37.0); MCV 95.7 fL (80.0-100.0); Mean Platelet Volume 8.3; Monocytes # (A) 0.5 k/uL (0-1.0); Monocytes % (A) 6 %; Neutrophils # (A) 6.5 k/uL (1.3-7.7); Neutrophils % (A) 78 %; Platelet Count 212 k/uL (150-450); RBC 4.81 m/uL (4.30-5.90); RDW 16.7 % (11.5-15.5); WBC 8.4 k/uL (3.8-10.6)
[2023-01-23 14:27] LABS: INR 1.3 (<1.2); Partial Thromboplastin Time 27.2 sec (22.0-30.0); Prothrombin Time 13.7 sec (9.0-12.0)
[2023-01-23 14:38] LABS: Albumin 4.3 g/dL (3.5-5.0); Calcium 9.2 mg/dL (8.4-10.2); Magnesium 1.4 mg/dL (1.6-2.3); Potassium 4.5 mmol/L (3.5-5.1); Total Bilirubin 1.8 mg/dL (0.2-1.3); Total Protein 7.3 g/dL (6.3-8.2)
[2023-01-23] MEDS ORDERED: FUROSEMIDE 10 MG/ML 4 ML VIAL IV STA (14:42)
--- NOTE | 2023-01-23 14:50 | ED ---
General Adult HPI - General Chief complaint: Shortness of Breath Stated complaint: AKILAH Time Seen by Provider: 01/23/23 13:20 Source: patient, RN notes reviewed Mode of arrival: wheelchair Limitations: no limitations - History of Present Illness Initial comments: 72-year-old male presents emergency from from PCPs office for evaluation of shortness of breath. Patient has been having increasing shortness of breath he was seen a few days ago was placed on 40 mg of Lasix daily which was up from 20 mg daily. Patient states that he went back today he is still having continuation of shortness breath with minimal urine output an x-ray showing pulmonary edema. Patient states that quadruple bypass in the past, 2 ablations, history of A. fib currently on Eliquis. Patient states with any movement he has increased shortness breath he was a former smoker but has no official diagnosis COPD. - Related Data Home Medications Medication Instructions Recorded Confirmed Atorvastatin [Lipitor] 80 mg PO HS 03/12/20 01/23/23 Isosorbide Mononitrate ER [Imdur] 30 mg PO QAM 03/12/20 01/23/23 Multivitamins, Thera [Multivitamin 1 tab PO QAM 03/12/20 01/23/23 (formulary)] metFORMIN HCL [Glucophage] 500 mg PO BID 03/12/20 01/23/23 Apixaban [Eliquis] 5 mg PO BID 04/24/21 01/23/23 Furosemide [Lasix] 40 mg PO DAILY 04/24/21 01/23/23 Metoprolol Succinate [Toprol XL] 100 mg PO DAILY 01/23/23 01/23/23 Previous Rx's Medication Instructions Recorded Aspirin [Adult Low Dose Aspirin EC] 81 mg PO BID #1 tablet. 03/15/20 Allergies Allergy/AdvReac Type Severity Reaction Status Date / Time No Known Allergies Allergy Verified 01/23/23 14:43 Review of Systems ROS Statement: Those systems with pertinent positive or pertinent negative responses have been documented in the HPI. ROS Other: All systems not noted in ROS Statement are negative. Past Medical History Past Medical History: Atrial Fibrillation, Cancer, Heart Failure, Diabetes Mellitus, Hyperlipidemia, Hypertension, Myocardial Infarction (IA), Osteoarthritis (OA), Sleep Apnea/CPAP/BIPAP Additional Past Medical History / Comment(s): Hx Cancer of tongue, 8 yrs ago. Borderline Diabetic. Uses CPAP. SEE DR SAMUEL H&P Last Myocardial Infarction Date:: 20 yrs History of Any Multi-Drug Resistant Organisms: None Reported Past Surgical History: Coronary Bypass/CABG Additional Past Surgical History / Comment(s): Quadruple Bypass 15 yrs ago, surgery of tongue 8, Lymph Node removed from leg. Past Anesthesia/Blood Transfusion Reactions: No Reported Reaction Past Psychological History: No Psychological Hx Reported Smoking Status: Former smoker - Past Family History Daughter(s) Family Medical History: Cancer General Exam Limitations: no limitations General appearance: alert, in no apparent distress Head exam: Present: atraumatic, normocephalic, normal inspection Neck exam: Present: normal inspection, full ROM. Absent: tenderness, meningismus, lymphadenopathy Respiratory exam: Present: rales, decreased breath sounds. Absent: normal lung sounds bilaterally, respiratory distress, wheezes, rhonchi, stridor Cardiovascular Exam: Present: irregular rhythm, normal heart sounds. Absent: regular rate, normal rhythm, systolic murmur, diastolic murmur, rubs, gallop, clicks Extremities exam: Present: pedal edema Course Vital Signs 01/23/23 01/23/23 13:03 14:26 Temperature 97.4 F L Pulse Rate 73 Respiratory 26 H 22 Rate Blood Pressure 91/45 O2 Sat by Pulse 94 L Oximetry EKG Findings - EKG Comments: EKG Findings:: EKG 13:39 A. fib rate of 78 QRS 178 QT/QTc 440/462 there is noted right bundle - EKG Results: EKG: interpreted by [facility] Medical Decision Making - Medical Decision Making Was pt. sent in by a medical professional or institution (, PA, INSURANCE COMMISSIONER, urgent care, hospital, or alf...) When possible be specific @ -[PCP Did you speak to anyone other than the patient for history (EMS, parent, family, police, friend...)? What history was obtained from this source @ -No Did you review nursing and triage notes (agree or disagree)? Why? @ -I reviewed and agree with nursing and triage notes Were old charts reviewed (outside hosp., previous admission, EMS record, old EKG, old radiological studies, urgent care reports/EKG's, alf records)? Report findings @ -Reviewed prior laboratory studies and cardiology evaluation Differential Diagnosis (chest pain, altered mental status, abdominal pain women, abdominal pain men, vaginal bleeding, weakness, fever, dyspnea, syncope, headache, dizziness, GI bleed, back pain, seizure, CVA, palpatations, mental health, musculoskeletal)? @ -Differential Dyspnea: Coronary syndrome, arrhythmia, tamponade, asthma, COPD, pulmonary embolism, pneumonia, pneumothorax, pulmonary effusion, anaphylaxis, diabetic ketoacidosis, flailed chest, pulmonary contusion, diaphragmatic rupture, anemia, neuromuscular, this is not meant to be an all-inclusive list. le EKG interpreted by me (3pts min.). @ -As above X-rays interpreted by me (1pt min.). @ -Review chest x-ray outpatient showing evidence of pulmonary edema CT interpreted by me (1pt min.). @ -None done U/S interpreted by me (1pt. min.). @ -None done What testing was considered but not performed or refused? (CT, X-rays, U/S, labs)? Why? @ -None What meds were considered but not given or refused? Why? @ -None Did you discuss the management of the patient with other professionals (professionals i.e. , PA, INSURANCE COMMISSIONER, lab, RT, psych nurse, medical social worker, field human resources manager, teacher, railway patrol officer, catalytic case operator)? Give summary @ -Dr nuñez for admission secondary to worsening pulmonary edema, weight gain after increasing Lasix with little urine output. Was smoking cessation discussed for >3mins.? @ -No Was critical care preformed (if so, how long)? @ -No Were there social determinants of health that impacted care today? How? (Homelessness, low income, unemployed, alcoholism, drug addiction, transportation, low edu. Level, literacy, decrease access to med. care, nursing home, rehab)? @ -No Was there de-escalation of care discussed even if they declined (Discuss DNR or withdrawal of care, Hospice)? DNR status @ -No What co-morbidities impacted this encounter? (DM, HTN, Smoking, COPD, CAD, Cancer, CVA, ARF, Chemo, Hep., AIDS, mental health diagnosis, sleep apnea, morbid obesity)? @ -CHF, CAD Was patient admitted / discharged? Hospital course, mention meds given and route, prescriptions, significant lab abnormalities, going to OR and other pertinent info. @ -Admitted patient's had increase in Lasix outpatient with no improvement of symptoms patient continues to have pulmonary edema, weight gain. Patient be admitted for diuresis, cardiology evaluation. Undiagnosed new problem with uncertain prognosis? @ -No Drug Therapy requiring intensive monitoring for toxicity (Heparin, Nitro, Insulin, Cardizem)? @ -No Were any procedures done? @ -No Diagnosis/symptom? @ -. CHF Acute, or Chronic, or Acute on Chronic? @ -Acute on chronic Uncomplicated (without systemic symptoms) or Complicated (systemic symptoms)? @ -Complicated Side effects of treatment? @ -No Exacerbation, Progression, or Severe Exacerbation? @ -No Poses a threat to life or bodily function? How? (Chest pain, USA, IA, pneumonia, PE, COPD, DKA, ARF, appy, cholecystitis, CVA, Diverticulitis, Homicidal, Suicidal, threat to staff... and all critical care pts) @ -Yes patient is at risk for cardiac, pulmonary failure - Lab Data Result diagrams: 01/23/23 13:50 01/23/23 13:50 Lab Results 01/23/23 01/23/23 01/23/23 Range/Units 13:50 13:50 13:50 WBC 8.4 (3.8-10.6) k/uL RBC 4.81 (4.30-5.90) m/uL Hgb 14.4 (13.0-17.5) gm/dL Hct 46.0 (39.0-53.0) % MCV 95.7 (80.0-100.0) fL MCH 29.9 (25.0-35.0) pg MCHC 31.3 (31.0-37.0) g/dL RDW 16.7 H (11.5-15.5) % Plt Count 212 (150-450) k/uL MPV 8.3 Neutrophils % 78 % Lymphocytes % 12 % Monocytes % 6 % Eosinophils % 2 % Basophils % 0 % Neutrophils # 6.5 (1.3-7.7) k/uL Lymphocytes # 1.0 (1.0-4.8) k/uL Monocytes # 0.5 (0-1.0) k/uL Eosinophils # 0.2 (0-0.7) k/uL Basophils # 0.0 (0-0.2) k/uL Hypochromasia Moderate Anisocytosis Slight PT 13.7 H (9.0-12.0) sec INR 1.3 H (<1.2) APTT 27.2 (22.0-30.0) sec Sodium 141 (137-145) mmol/L Potassium 4.5 (3.5-5.1) mmol/L Chloride 98 (98-107) mmol/L Carbon Dioxide 31 H (22-30) mmol/L Anion Gap 12 mmol/L BUN 23 H (9-20) mg/dL Creatinine 1.26 H (0.66-1.25) mg/dL Est GFR (CKD-EPI)AfAm 65 (>60 ml/min/1.73 sqM) Est GFR (CKD-EPI)NonAf 56 (>60 ml/min/1.73 sqM) Glucose 121 H (74-99) mg/dL Calcium 9.2 (8.4-10.2) mg/dL Magnesium 1.4 L (1.6-2.3) mg/dL Total Bilirubin 1.8 H (0.2-1.3) mg/dL AST 29 (17-59) U/L ALT 23 (4-49) U/L Alkaline Phosphatase 147 H (38-126) U/L Troponin I (0.000-0.034) ng/mL NT-Pro-B Natriuret Pep pg/mL Total Protein 7.3 (6.3-8.2) g/dL Albumin 4.3 (3.5-5.0) g/dL 01/23/23 01/23/23 Range/Units 13:50 13:50 WBC (3.8-10.6) k/uL RBC (4.30-5.90) m/uL Hgb (13.0-17.5) gm/dL Hct (39.0-53.0) % MCV (80.0-100.0) fL MCH (25.0-35.0) pg MCHC (31.0-37.0) g/dL RDW (11.5-15.5) % Plt Count (150-450) k/uL MPV Neutrophils % % Lymphocytes % % Monocytes % % Eosinophils % % Basophils % % Neutrophils # (1.3-7.7) k/uL Lymphocytes # (1.0-4.8) k/uL Monocytes # (0-1.0) k/uL Eosinophils # (0-0.7) k/uL Basophils # (0-0.2) k/uL Hypochromasia Anisocytosis PT (9.0-12.0) sec INR (<1.2) APTT (22.0-30.0) sec Sodium (137-145) mmol/L Potassium (3.5-5.1) mmol/L Chloride (98-107) mmol/L Carbon Dioxide (22-30) mmol/L Anion Gap mmol/L BUN (9-20) mg/dL Creatinine (0.66-1.25) mg/dL Est GFR (CKD-EPI)AfAm (>60 ml/min/1.73 sqM) Est GFR (CKD-EPI)NonAf (>60 ml/min/1.73 sqM) Glucose (74-99) mg/dL Calcium (8.4-10.2) mg/dL Magnesium (1.6-2.3) mg/dL Total Bilirubin (0.2-1.3) mg/dL AST (17-59) U/L ALT (4-49) U/L Alkaline Phosphatase (38-126) U/L Troponin I 0.014 (0.000-0.034) ng/mL NT-Pro-B Natriuret Pep 2610 pg/mL Total Protein (6.3-8.2) g/dL Albumin (3.5-5.0) g/dL Disposition Clinical Impression: Acute CHF (congestive heart failure) Disposition: ADMITTED IP TO THIS HOSP Condition: Fair Referrals: Spencer Wilkins DO [Primary Care Provider] - 1-2 days Time of Disposition: 15:29
--- NOTE | 2023-01-23 16:23 | P.HPIM ---
History of Present Illness H&P Date: 01/23/23 Chief Complaint: dyspnea 72 year old man with history of CAD s/p CABG, paroxysmal atrial fibrillation, HTN, HLD, DM presented for dyspnea. Patient says he's been following with his primary care physician for weight gain as well as shortness of breath that has been increasing over the last several months. He was initially started on Lasix 20 mg by mouth daily, however, has had limited urine output and has had increasing weight gain as well as shortness of breath, therefore went to see his primary care physician last Thursday and had his Lasix increased to 40 mg. Anderson pite that, he continues to report increasing shortness of breath and weight gain, has had limited urine output. He says that he urinates approximately three quarters of a cup of water 2-3 times a day maximum. He denies fevers, chills, chest pain, palpitations, syncope, presyncope, cough, abdominal pain, constipation, diarrhea, dysuria, dyschezia, numbness/weakness of her tremors. In the emergency room, patient was afebrile, 91/45, heart rate 73, 94% on room air. CBC is unremarkable. Basic metabolic panel shows a CO2 of 31, BUN of 23, creatinine 1.26. Magnesium was 1.4. Total bilirubin is 1.8, alkaline phosphatase was 147. Troponin was 0.014. BNP was 2610. EKG showed atrial fibrillation with controlled rate, no evidence of ischemia, right bundle branch block. Chest x-ray shows cardiomegaly with vascular congestion as well as bilateral pulmonary opacities consistent with heart failure. Case was discussed with the emergency room physician decision was made to admit the patient for further workup of heart failure exacerbation. All Systems reviewed and pertinent positives and negatives noted in HPI, all other symptoms are negative Gen: in no apparent distress, resting comfortably in bed Eyes: PERRL, no scleral injection or icterus HENT: normocephalic, atraumatic, good hearing acuity, moist mucous membranes Neck: no tracheal deviation, full range of motion Resp: good air exchange, breathing comfortably with no accessory muscle use, no tactile fremitus, bilateral crackles predominantly in the bases, but also up to mid chest and the left side. CVS: good distal perfusion x 4, bilateral pitting edema, regular rhythm, normal rate, no appreciable murmurs GI: soft, distended without tenderness to palpation, no hepatosplenomegaly : no suprapubic tenderness, no CVAT, tang catheter not present MSK: no clubbing, no cyanosis, no noted contractures of extremities Skin: no noted rashes, petechiae; temperature of skin is appropriate Neuro: moving all extremities without signs of weakness, CN II-XII intact Psych: cooperative, euthymic mood, insight and judgment intact Assessment: Acute on chronic systolic heart failure exacerbation, last known ejection fraction is 45% Acute kidney injury Paroxysmal atrial fibrillation Hypertension Hyperlipidemia Diabetes type 2 CAD Plan: Vital signs reviewed and noted in the HPI Lab work reviewed and noted in the HPI EKG and CXR are personally interpreted and noted in the HPI Case was discussed with the Emergency Room provider and decision was made to admit the patient for heart failure exacerbation Start Lasix 40 mg IV every 12 Bladder scan ordered Renal ultrasound ordered Echocardiogram ordered Cardiology consulted Metoprolol 100 mg daily resumed Imdur 30 mg daily Continue apixaban 5 mg twice a day Patient is full code DVT prophylaxis covered with Apixiban Past Medical History Past Medical History: Atrial Fibrillation, Cancer, Heart Failure, Diabetes Mellitus, Hyperlipidemia, Hypertension, Myocardial Infarction (IA), Osteoarthritis (OA), Sleep Apnea/CPAP/BIPAP Additional Past Medical History / Comment(s): Hx Cancer of tongue, 8 yrs ago. Borderline Diabetic. Uses CPAP. SEE DR SAMUEL H&P Last Myocardial Infarction Date:: 20 yrs History of Any Multi-Drug Resistant Organisms: None Reported Past Surgical History: Coronary Bypass/CABG Additional Past Surgical History / Comment(s): Quadruple Bypass 15 yrs ago, surgery of tongue 8, Lymph Node removed from leg. Past Anesthesia/Blood Transfusion Reactions: No Reported Reaction Past Psychological History: No Psychological Hx Reported Smoking Status: Former smoker - Past Family History Daughter(s) Family Medical History: Cancer Medications and Allergies Home Medications Medication Instructions Recorded Confirmed Type Atorvastatin [Lipitor] 80 mg PO HS 03/12/20 01/23/23 History Isosorbide Mononitrate ER [Imdur] 30 mg PO QAM 03/12/20 01/23/23 History Multivitamins, Thera [Multivitamin 1 tab PO QAM 03/12/20 01/23/23 History (formulary)] metFORMIN HCL [Glucophage] 500 mg PO BID 03/12/20 01/23/23 History Aspirin [Adult Low Dose Aspirin EC] 81 mg PO BID #1 tablet. 03/15/20 01/23/23 Rx Apixaban [Eliquis] 5 mg PO BID 04/24/21 01/23/23 History Furosemide [Lasix] 40 mg PO DAILY 04/24/21 01/23/23 History Metoprolol Succinate [Toprol XL] 100 mg PO DAILY 01/23/23 01/23/23 History Allergies Allergy/AdvReac Type Severity Reaction Status Date / Time No Known Allergies Allergy Verified 01/23/23 14:43 Physical Exam Osteopathic Statement: *. No significant issues noted on an osteopathic structural exam other than those noted in the History and Physical/Consult. Vitals: Vital Signs Temp Pulse Resp BP Pulse Ox 01/23/23 15:53 80 22 105/72 97 01/23/23 14:26 22 01/23/23 13:03 97.4 F L 73 26 H 91/45 94 L Intake and Output 01/23/23 01/23/23 01/23/23 06:59 14:59 22:59 Other: Weight 106.413 kg Results CBC & Chem 7: 01/23/23 13:50 01/23/23 13:50 Labs: Abnormal Lab Results - Last 24 Hours (Table) 01/23/23 01/23/23 01/23/23 Range/Units 13:50 13:50 13:50 RDW 16.7 H (11.5-15.5) % PT 13.7 H (9.0-12.0) sec INR 1.3 H (<1.2) Carbon Dioxide 31 H (22-30) mmol/L BUN 23 H (9-20) mg/dL Creatinine 1.26 H (0.66-1.25) mg/dL Glucose 121 H (74-99) mg/dL Magnesium 1.4 L (1.6-2.3) mg/dL Total Bilirubin 1.8 H (0.2-1.3) mg/dL Alkaline Phosphatase 147 H (38-126) U/L
[2023-01-23 16:44] LABS: Glucose,Whole Blood 100 mg/dL (70-110)
--- NOTE | 2023-01-23 16:54 | US ---
EXAMINATION TYPE: US kidneys/renal and bladder DATE OF EXAM: 01/23/2023 COMPARISON: NONE CLINICAL INDICATION: Male, 72 years old with history of kidney injury; EXAM MEASUREMENTS: Right Kidney: 10.6 x 6.5 x 5.1 cm Left Kidney: 11.1 x 5.0 x 5.5 cm Difficult and limited study due to morbidly obese patient Right Kidney: 2.3cm hypoechoic area inferior pole Left Kidney: multiple hypoechoic areas with largest measuring 1.6cm Bladder: wnl Bilateral Jets seen: no There is no evidence for hydronephrosis at this point in time. No nephrolithiasis is seen. No solid mass identified. Bilateral simple appearing renal cysts. The urinary bladder is anechoic. Free fluid identified within the midline pelvis. IMPRESSION: 1. No hydronephrosis or nephrolithiasis. 2. Bilateral renal cysts. 3. Free fluid within the midline pelvis.
[2023-01-23] MEDS: ATORVASTATIN 80 MG TAB PO SCH (20:00)
[2023-01-23] MEDS: APIXABAN 5 MG TAB PO SCH (20:00)
[2023-01-23] MEDS: ASPIRIN 81 MG PO SCH (20:00)
[2023-01-23 20:44] LABS: Glucose,Whole Blood 161 mg/dL (70-110)
[2023-01-23] MEDS ORDERED: FUROSEMIDE 10 MG/ML 4 ML VIAL IV SCH (21:00)
[2023-01-23] MEDS: traMADol 50 MG TAB PO PRN (21:00)
[2023-01-23] MEDS ORDERED: metFORMIN 500 MG TAB PO SCH (21:00)
[2023-01-24 06:15] LABS: Glucose,Whole Blood 110 mg/dL (70-110)
[2023-01-24] MEDS ORDERED: FUROSEMIDE 10 MG/ML 2 ML VIAL IV ONE (07:51)
[2023-01-24] MEDS: ISOSORBIDE MONONITRATE ER 30 MG TAB.ER.24H PO SCH (08:59)
[2023-01-24] MEDS: MULTIVITAMINS, THERA 1 EACH TAB PO SCH (08:59)
[2023-01-24] MEDS: ASPIRIN 81 MG PO SCH ×2 (08:59→20:09)
[2023-01-24] MEDS: traMADol 50 MG TAB PO PRN (08:59)
[2023-01-24] MEDS: FUROSEMIDE 10 MG/ML 10 ML VIAL IV SCH ×2 (08:59→20:10)
[2023-01-24] MEDS: APIXABAN 5 MG TAB PO SCH ×2 (08:59→20:10)
[2023-01-24] MEDS: METOPROLOL SUCCINATE (ER) 100 MG TAB.ER.24H PO SCH (08:59)
[2023-01-24] MEDS ORDERED: FUROSEMIDE 10 MG/ML 2 ML VIAL IV STA (10:11)
--- NOTE | 2023-01-24 10:14 | P.PN ---
Subjective Progress Note Date: 01/24/23 No new complaints today. Ongoing dyspnea. Gen: awake, alert HEENT: normocephalic, atraumatic, good hearing acuity, moist mucous membranes Resp: good air exchange, breathing comfortably with no accessory muscle use CVS: good distal perfusion x 4, GI: soft, NTTP, ND : no SPT, no CVAT, tang catheter not present MSK: no pitting edema, no clubbing Neuro: non-focal, moving all extremities Psych: cooperative, euthymic mood Hospital Course: 72 year old man with history of CAD s/p CABG, paroxysmal atrial fibrillation, HTN, HLD, DM presented for dyspnea. In the emergency room, patient was afebrile, 91/45, heart rate 73, 94% on room air. CBC is unremarkable. Basic metabolic panel shows a CO2 of 31, BUN of 23, creatinine 1.26. Magnesium was 1.4. Total bilirubin is 1.8, alkaline phosphatase was 147. Troponin was 0.014. BNP was 2610. EKG showed atrial fibrillation with controlled rate, no evidence of ischemia, right bundle branch block. Chest x-ray shows cardiomegaly with vascular congestion as well as bilateral pulmonary opacities consistent with heart failure. Case was discussed with the emergency room physician decision was made to admit the patient for further workup of heart failure exacerbation. Assessment: Acute on chronic systolic heart failure exacerbation, last known ejection fraction is 45% Acute kidney injury Paroxysmal atrial fibrillation Hypertension Hyperlipidemia Diabetes type 2 CAD Plan: Today, patient is afebrile, 113/68, heart rate 76, 97% on 2 L of nasal cannula CBC, basic metabolic panel, magnesium ordered for tomorrow Cardiology consult is pending Bladder scan had 76 mL Renal ultrasound had no evidence of hydronephrosis, obstruction, and had an ane choic bladder Patient is to receive 80 mg of Lasix this morning, then increase Lasix to 60 mg twice a day Metoprolol 100 mg daily resumed Imdur 30 mg daily Continue apixaban 5 mg twice a day Patient is full code DVT prophylaxis covered with Apixiban Objective - Vital Signs Vital signs: Vital Signs Temp 97.6 F 01/24/23 08:00 Pulse 76 01/24/23 08:00 Resp 20 01/24/23 08:00 BP 113/68 01/24/23 08:00 Pulse Ox 92 L 01/24/23 09:11 FiO2 Intake & Output 01/23/23 01/24/23 01/24/23 18:59 06:59 18:59 Intake Total 10 20 120 Output Total 750 925 Balance -740 -905 120 Weight 106.413 kg 153 kg Intake: IV 10 20 Invasive Line 1 10 20 Oral 120 Output: Urine 750 925 Other: Voiding Method Toilet Toilet Toilet Urinal Urinal # Voids 1 - Labs CBC & Chem 7: 01/23/23 13:50 01/23/23 13:50 Labs: Abnormal Lab Results - Last 24 Hours (Table) 01/23/23 01/23/23 01/23/23 Range/Units 13:50 13:50 13:50 RDW 16.7 H (11.5-15.5) % PT 13.7 H (9.0-12.0) sec INR 1.3 H (<1.2) Carbon Dioxide 31 H (22-30) mmol/L BUN 23 H (9-20) mg/dL Creatinine 1.26 H (0.66-1.25) mg/dL Glucose 121 H (74-99) mg/dL POC Glucose (mg/dL) (70-110) mg/dL Magnesium 1.4 L (1.6-2.3) mg/dL Total Bilirubin 1.8 H (0.2-1.3) mg/dL Alkaline Phosphatase 147 H (38-126) U/L 01/23/23 Range/Units 20:42 RDW (11.5-15.5) % PT (9.0-12.0) sec INR (<1.2) Carbon Dioxide (22-30) mmol/L BUN (9-20) mg/dL Creatinine (0.66-1.25) mg/dL Glucose (74-99) mg/dL POC Glucose (mg/dL) 161 H (70-110) mg/dL Magnesium (1.6-2.3) mg/dL Total Bilirubin (0.2-1.3) mg/dL Alkaline Phosphatase (38-126) U/L
[2023-01-24 11:47] VITALS: BMI 52.8
[2023-01-24 12:18] LABS: Glucose,Whole Blood 146 mg/dL (70-110)
[2023-01-24] MEDS: DAPAGLIFLOZIN PROPANEDIOL 10 MG TABLET PO SCH (13:11)
--- NOTE | 2023-01-24 15:05 | P.CRDCN ---
History of Present Illness Consult date: 01/24/23 Requesting physician: Verona Sol Reason for Consult (text): CHF Chief complaint: shortness of breath History of present illness: This is a pleasant 72-year-old gentleman who follows in the office with Dr. Medrano. Has a history of CAD with prior CABG, myopathy, prior atrial flutter ablation in 2020 and subsequent atrial fibrillation ablation in 2021 that was unsuccessful, and a persistent atrial fibrillation with controlled ventricular response he is anticoagulated. Also has a history of hypertension, hyperlipidemia and diabetes. He presented with complaints of shortness of breath. He initially presented a few days ago to his primary care provider with complaints of progressively worsening dyspnea on exertion over the last month at that time he was noted to have a 23 pound weight gain over the last month. His Lasix was increased and he presented again on Thursday for follow-up with no improvement in his symptoms. A chest x-ray that showed possible CHF exacerbation with cardiomegaly and mild to moderate central vascular congestion. He was advised to come to the emergency department. To probing. With elevated at 2610. He was initiated on IV Lasix. Upon examination he is overall feeling better. Continues to have lower extremity edema that is chronic and he feels u nchanged. He does have edema in his abdomen that he feels is improving. Past Medical History Past Medical History: Atrial Fibrillation, Cancer, Heart Failure, Diabetes Mellitus, Hyperlipidemia, Hypertension, Myocardial Infarction (AR), Osteoarthritis (OA), Sleep Apnea/CPAP/BIPAP Additional Past Medical History / Comment(s): Hx Cancer of tongue, 8 yrs ago. Borderline Diabetic. Uses CPAP. Last Myocardial Infarction Date:: 20 yrs History of Any Multi-Drug Resistant Organisms: None Reported Past Surgical History: Ablation, Coronary Bypass/CABG, Orthopedic Surgery Additional Past Surgical History / Comment(s): Quadruple Bypass 16 yrs ago, surgery of tongue 8, Lymph Node removed from (R) leg and tongue. Ablation x2, Ankle sx Past Anesthesia/Blood Transfusion Reactions: No Reported Reaction Smoking Status: Former smoker - Past Family History Daughter(s) Family Medical History: Cancer Mother Family Medical History: Cancer, Dementia, Hyperlipidemia Additional Family Medical History / Comment(s): at 93. Cancer Lung-dementia Father Family Medical History: Myocardial Infarction (AR) Additional Family Medical History / Comment(s): at 59 AR Medications and Allergies Home Medications Medication Instructions Recorded Confirmed Type Atorvastatin [Lipitor] 80 mg PO HS 03/12/20 01/23/23 History Isosorbide Mononitrate ER [Imdur] 30 mg PO QAM 03/12/20 01/23/23 History Multivitamins, Thera [Multivitamin 1 tab PO QAM 03/12/20 01/23/23 History (formulary)] metFORMIN HCL [Glucophage] 500 mg PO BID 03/12/20 01/23/23 History Aspirin [Adult Low Dose Aspirin EC] 81 mg PO BID #1 tablet. 03/15/20 01/23/23 Rx Apixaban [Eliquis] 5 mg PO BID 04/24/21 01/23/23 History Furosemide [Lasix] 40 mg PO DAILY 04/24/21 01/23/23 History Metoprolol Succinate [Toprol XL] 100 mg PO DAILY 01/23/23 01/23/23 History Allergies Allergy/AdvReac Type Severity Reaction Status Date / Time No Known Allergies Allergy Verified 01/23/23 14:43 Physical Exam Vitals: Vital Signs Temp Pulse Pulse Resp BP BP Pulse Ox 01/24/23 11:20 97.8 F 72 20 113/67 93 L 01/24/23 09:11 92 L 01/24/23 08:00 97.6 F 76 20 113/68 97 01/24/23 04:00 80 17 106/53 95 01/24/23 00:00 97.9 F 72 19 112/70 97 01/23/23 19:55 98.1 F 77 19 104/50 96 01/23/23 16:48 70 22 122/64 98 01/23/23 15:53 80 22 105/72 97 Intake and Output 01/23/23 01/24/23 01/24/23 22:59 06:59 14:59 Intake Total 20 10 360 Output Total 4269 819 2102 Balance -0039 -432 -636 Intake: IV 20 10 Invasive Line 1 20 10 Oral 360 Output: Urine 7040 260 0133 Other: Voiding Method Toilet Toilet Toilet Urinal Urinal # Voids 1 Weight 153 kg 153 kg PHYSICAL EXAMINATION: This is a 72-year-old male in no apparent distress at the time of my examination. HEENT: Head is atraumatic, normocephalic. Pupils are equal, round. Sclerae anicteric. Conjunctivae are clear. Mucous membranes of the mouth are moist. Neck is supple. There is no elevated jugular venous pressure. No carotid bruit is heard. CHEST EXAMINATION: Lungs reveal diminished air entry bilaterally. No wheezes rales or rhonchi. Respirations even and nonlabored. HEART EXAMINATION: Heart irregular rate and rhythm, positive S1 and S2. No S3. No S4. Systolic murmur. ABDOMEN: Edema noted, nontender. Bowel sounds are heard. No organomegaly noted. EXTREMITIES: Moderate right lower extremity edema and mild left lower extremity edema, chronic per patient. NEUROLOGIC EXAMINATION: Patient is awake, alert and oriented x3. Results 01/23/23 13:50 01/23/23 13:50 Cardiac Enzymes 01/23/23 Range/Units 13:50 Troponin I 0.014 (0.000-0.034) ng/mL Current Medications Generic Name Dose Route Start Last Admin Trade Name Freq PRN Reason Stop Dose Admin Apixaban 5 mg 01/23/23 21:00 01/24/23 08:59 Apixaban 5 Mg Tab PO 5 mg BID RUBY Administration Protocol Aspirin 81 mg 01/23/23 21:00 01/24/23 08:59 Aspirin 81 Mg PO 81 mg BID RUBY Administration Atorvastatin Calcium 80 mg 01/23/23 21:00 01/23/23 20:00 Atorvastatin 80 Mg Tab PO 80 mg HS RUBY Administration Dapagliflozin 10 mg 01/24/23 12:45 01/24/23 13:11 Dapagliflozin Propanediol 10 Mg Tablet PO 10 mg DAILY RUBY Administration Furosemide 60 mg 01/24/23 09:00 01/24/23 08:59 Furosemide 10 Mg/Ml 10 Ml Vial IV 60 mg Q12HR RUBY Administration Isosorbide Mononitrate 30 mg 01/24/23 09:00 01/24/23 08:59 Isosorbide Mononitrate Er 30 Mg Tab.Er.24h PO 30 mg QAM RUBY Administration Metoprolol Succinate 100 mg 01/24/23 09:00 01/24/23 08:59 Metoprolol Succinate (Er) 100 Mg Tab.Er.24h PO 100 mg DAILY RUBY Administration Multivitamins 1 each 01/24/23 09:00 01/24/23 08:59 Multivitamins, Thera 1 Each Tab PO 1 each QAM RUBY Administration Sacubitril/Valsartan 1 each 01/24/23 21:00 Sacubitril/Valsartan 24 Mg-26 Mg Tablet PO BID RUBY Tramadol HCl 50 mg 01/23/23 20:31 01/24/23 08:59 Tramadol 50 Mg Tab PO 50 mg TID PRN Administration Pain Intake and Output 01/23/23 01/24/23 01/24/23 22:59 06:59 14:59 Intake Total 20 10 360 Output Total 5215 172 9829 Balance -1155 -490 -790 Intake: IV 20 10 Invasive Line 1 20 10 Oral 360 Output: Urine 7046 270 9494 Other: Voiding Method Toilet Toilet Toilet Urinal Urinal # Voids 1 Weight 153 kg 153 kg Patient Weight 01/25/23 06:59 Weight 153 kg 01/23/23 13:50 01/23/23 13:50 EKG Interpretations (text) Atrial fibrillation with right bundle branch block Assessment and Plan Assessment: #1 acute on chronic congestive heart failure with reduced ejection fraction #2 CAD with prior CABG #3 chronic persistent atrial fibrillation 4 hypertension #5 hyperlipidemia Plan: From cardiology's perspective we will add Entresto and Farxiga. We'll continue to follow renal function and electrolytes. Repeat chest x-ray in the morning. Continue to follow the patient and provide further recommendations accordingly. ORACLE DATABASE MANAGER note has been reviewed, I agree with a documented findings and plan of care. Patient was seen and examined.
[2023-01-24 16:45] LABS: Glucose,Whole Blood 117 mg/dL (70-110)
--- NOTE | 2023-01-24 18:31 | CA ---
Transthoracic Echo Report Name: Jeremy Rooney Age: 72 Gender: M : 1950 Exam Date: 01/24/2023 11:39 Exam Location: [place] [facility] Ht (in): 67 Wt (lb): 337 Ordering Physician: Verona Sol MD Attending/Referring Phys: Ammonia Technician Jesusita Clay RDCS Procedure CPT: Indications: HF Cardiac Hx: CABG Technical Quality: Technically difficult study Contrast 1: Lumason Total Dose (mL): 3 Contrast 2: Total Dose (mL): MEASUREMENTS (Male / Female) Normal Values 2D ECHO LV Diastolic Diameter PLAX 5.9 cm 4.2 - 5.9 / 3.9 - 5.3 cm LV Systolic Diameter PLAX 3.7 cm IVS Diastolic Thickness 1.3 cm 0.6 - 1.0 / 0.6 - 0.9 cm LVPW Diastolic Thickness 1.5 cm 0.6 - 1.0 / 0.6 - 0.9 cm LV Relative Wall Thickness 0.5 RV Internal Dim ED PLAX 4.3 cm LVOT Diameter 2.6 cm LA Systolic Diameter LX 4.8 cm 3.0 - 4.0 / 2.7 - 3.8 cm LA Volume 87.9 cm??? 18 - 58 / 22 - 52 cm??? M-MODE Aortic Root Diameter MM 4.0 cm AV Cusp Separation MM 1.8 cm DOPPLER AV Peak Velocity 146.5 cm/s AV Peak Gradient 8.6 mmHg MV Area PHT 2.5 cm??? MV Deceleration Time 261.2 ms TR Peak Velocity 386.6 cm/s TR Peak Gradient 59.8 mmHg Right Ventricular Systolic Press 64.1 mmHg FINDINGS Left Ventricle Left ventricular ejection fraction is estimated at 30-35 %. Left ventricular cavity is dilated Mildly increased septal wall thickness. Right Ventricle Severe right ventricular dilatation. Severe pulmonary hypertension. Right ventricular systolic pressure estimated at 64 mm hg.reduced right ventricular global systolic function. Right Atrium Moderate increase LA area Left Atrium Moderately increased left atrial diameter. Severely increased left atrial volume. Mildly increased left atrial area. Mitral Valve Structurally normal mitral valve. Mild mitral regurgitation. Aortic Valve No aortic valve stenosis or regurgitation.aortic valve not well visualized. Tricuspid Valve Moderate tricuspid regurgitation.structurally normal tricuspid valve. Pulmonic Valve Pulmonic valve not well visualized. Pericardium Normal pericardium. No pericardial effusion. Aorta Moderate aortic dilatation at the level of the sinuses of valsalva 40 mm CONCLUSIONS Lumason ECHO contrast used for improved visualization of the endocardial borders (inadequate visualization of two or more contiguous segments). Technically difficult study. Severe impairment in the left ventricle systolic function, assessment segmental wall motion could not be done Dilated right ventricle with severe pulmonary hypertension and decreased systolic function Mild mitral was moderate tricuspid regurgitation Previewed by: Dr. Cassy Garber MD (Electronically Signed) Final Date: 24 January 2023 18:30
[2023-01-24 20:05] LABS: Glucose,Whole Blood 104 mg/dL (70-110)
[2023-01-24] MEDS: ATORVASTATIN 80 MG TAB PO SCH (20:10)
[2023-01-24] MEDS: SACUBITRIL/VALSARTAN 24 MG-26 MG TABLET PO SCH (20:10)
[2023-01-25] MEDS: traMADol 50 MG TAB PO PRN ×3 (01:10→19:35)
[2023-01-25 06:03] LABS: Glucose,Whole Blood 105 mg/dL (70-110)
[2023-01-25 07:45] LABS: Anisocytosis Slight; Basophils % (A) 0 %; Eosinophils # (A) 0.2 k/uL (0-0.7); Eosinophils % (A) 3 %; HCT 43.1 % (39.0-53.0); HGB 13.4 gm/dL (13.0-17.5); Hypochromasia Moderate; Lymphocytes # (A) 0.7 k/uL (1.0-4.8); Lymphocytes % (A) 10 %; MCH 29.9 pg (25.0-35.0); MCV 96.4 fL (80.0-100.0); Mean Platelet Volume 8.1; Monocytes # (A) 0.5 k/uL (0-1.0); Monocytes % (A) 8 %; Neutrophils # (A) 5.1 k/uL (1.3-7.7); Neutrophils % (A) 77 %; Platelet Count 191 k/uL (150-450); RBC 4.47 m/uL (4.30-5.90); RDW 16.5 % (11.5-15.5); WBC 6.7 k/uL (3.8-10.6)
[2023-01-25 07:53] LABS: Calcium 8.5 mg/dL (8.4-10.2); Magnesium 1.4 mg/dL (1.6-2.3); Potassium 3.9 mmol/L (3.5-5.1)
[2023-01-25] MEDS: MAGNESIUM SULFATE-D5W PMX 1 GM in DEXTROSE/WATER 1 100ML.BAG IVPB SCH ×4 (08:37→12:27)
[2023-01-25] MEDS: FUROSEMIDE 10 MG/ML 10 ML VIAL IV SCH ×2 (08:37→19:36)
[2023-01-25] MEDS: ASPIRIN 81 MG PO SCH ×2 (08:38→19:36)
[2023-01-25] MEDS: SACUBITRIL/VALSARTAN 24 MG-26 MG TABLET PO SCH ×2 (08:38→19:36)
[2023-01-25] MEDS: MULTIVITAMINS, THERA 1 EACH TAB PO SCH (08:38)
[2023-01-25] MEDS: DAPAGLIFLOZIN PROPANEDIOL 10 MG TABLET PO SCH (08:38)
[2023-01-25] MEDS: ISOSORBIDE MONONITRATE ER 30 MG TAB.ER.24H PO SCH (08:38)
[2023-01-25] MEDS: METOPROLOL SUCCINATE (ER) 100 MG TAB.ER.24H PO SCH (08:38)
[2023-01-25] MEDS: APIXABAN 5 MG TAB PO SCH ×2 (08:38→19:36)
--- NOTE | 2023-01-25 10:56 | P.PN ---
Subjective Progress Note Date: 01/25/23 No new complaints today. Ongoing dyspnea, but improved. Diuresing well Gen: awake, alert HEENT: normocephalic, atraumatic, good hearing acuity, moist mucous membranes Resp: good air exchange, breathing comfortably with no accessory muscle use CVS: good distal perfusion x 4, GI: soft, NTTP, ND : no SPT, no CVAT, tang catheter not present MSK: no pitting edema, no clubbing Neuro: non-focal, moving all extremities Psych: cooperative, euthymic mood Hospital Course: 72 year old man with history of CAD s/p CABG, paroxysmal atrial fibrillation, HTN, HLD, DM presented for dyspnea. In the emergency room, patient was afebrile, 91/45, heart rate 73, 94% on room air. CBC is unremarkable. Basic metabolic panel shows a CO2 of 31, BUN of 23, creatinine 1.26. Magnesium was 1.4. Total bilirubin is 1.8, alkaline phosphatase was 147. Troponin was 0.014. BNP was 2610. EKG showed atrial fibrillation with controlled rate, no evidence of ischemia, right bundle branch block. Chest x-ray shows cardiomegaly with vascular congestion as well as bilateral pulmonary opacities consistent with heart failure. Case was discussed with the emergency room physician decision was made to admit the patient for further workup of heart failure exacerbation. Assessment: Acute on chronic systolic heart failure exacerbation, last known ejection fraction is 45% Acute on chronic right heart failure Acute kidney injury, improving Paroxysmal atrial fibrillation Hypertension Hyperlipidemia Diabetes type 2 CAD Plan: Today, patient is afebrile, 125/69, heart rate 78, 93% on 2 L nasal cannula CBC, basic metabolic panel, magnesium ordered for tomorrow Cardiology consult note reviewed, agree with diuretics Echocardiogram showed reduction of ejection fraction of 35% as well as severe right ventricular systolic pressure elevation and moderate right ventricular dilation with dysfunction Continue Lasix 60 mg IV twice a day Metoprolol 100 mg daily resumed Imdur 30 mg daily Continue apixaban 5 mg twice a day Patient is full code DVT prophylaxis covered with Apixiban Objective - Vital Signs Vital signs: Vital Signs Temp 98.3 F 01/25/23 08:00 Pulse 78 01/25/23 08:00 Resp 20 01/25/23 08:00 BP 125/69 01/25/23 08:00 Pulse Ox 93 L 01/25/23 09:13 FiO2 Intake & Output 01/24/23 01/25/23 01/25/23 18:59 06:59 18:59 Intake Total 1078 240 Output Total 1500 2100 400 Balance -422 -160 Weight 153 kg 151.2 kg Intake: Oral 1078 240 Output: Urine 1500 2100 400 Other: Voiding Method Toilet Toilet Toilet # Voids 1 1 - Labs CBC & Chem 7: 01/25/23 06:26 01/25/23 06:26 Labs: Abnormal Lab Results - Last 24 Hours (Table) 01/24/23 01/24/23 01/25/23 Range/Units 11:47 16:23 06:26 RDW (11.5-15.5) % Lymphocytes # (1.0-4.8) k/uL Sodium 136 L (137-145) mmol/L Chloride 95 L (98-107) mmol/L Carbon Dioxide 33 H (22-30) mmol/L BUN 21 H (9-20) mg/dL Glucose 106 H (74-99) mg/dL POC Glucose (mg/dL) 146 H 117 H (70-110) mg/dL Magnesium 1.4 L (1.6-2.3) mg/dL 01/25/23 Range/Units 06:26 RDW 16.5 H (11.5-15.5) % Lymphocytes # 0.7 L (1.0-4.8) k/uL Sodium (137-145) mmol/L Chloride (98-107) mmol/L Carbon Dioxide (22-30) mmol/L BUN (9-20) mg/dL Glucose (74-99) mg/dL POC Glucose (mg/dL) (70-110) mg/dL Magnesium (1.6-2.3) mg/dL
[2023-01-25 11:44] LABS: Glucose,Whole Blood 120 mg/dL (70-110)
[2023-01-25] MEDS: SPIRONOLACTONE 25 MG TAB PO SCH (15:53)
--- NOTE | 2023-01-25 15:56 | P.PN ---
Subjective Progress Note Date: 01/25/23 This is a pleasant 72-year-old gentleman who follows in the office with Dr. Medrano. Has a history of CAD with prior CABG, myopathy, prior atrial flutter ablation in 2020 and subsequent atrial fibrillation ablation in 2021 that was unsuccessful, and a persistent atrial fibrillation with controlled ventricular response he is anticoagulated. Also has a history of hypertension, hyperlipidemia and diabetes. He presented with complaints of shortness of breath. He initially presented a few days ago to his primary care provider with complaints of progressively worsening dyspnea on exertion over the last month at that time he was noted to have a 23 pound weight gain over the last month. His Lasix was increased and he presented again on Thursday for follow-up with no improvement in his symptoms. A chest x-ray that showed possible CHF exacerbation with cardiomegaly and mild to moderate central vascular congestion. He was advised to come to the emergency department. To probing. With elevated at 2610. He was initiated on IV Lasix. Upon examination he is overall feeling better. Continues to have lower extremity edema that is chronic and he feels unchanged. He does have edema in his abdomen that he feels is improving. 01/25/2023 The patient was seen and examined resting comfortably in bed. Overall feeling significantly better. His breathing has improved. Vital signs are stable. Echocardiogram with Doppler study showed ejection fraction 30-35% with severe pulmonary hypertension and dilated RV, moderate TR and mild MR. Echocardiogram in the past showed an ejection fraction of around 40-45%. Renal function has been stable. Objective - Vital Signs Vital signs: Vital Signs Temp 98 F 01/25/23 12:00 Pulse 73 01/25/23 12:00 Resp 18 01/25/23 12:00 BP 113/68 01/25/23 12:00 Pulse Ox 92 L 01/25/23 12:00 FiO2 Intake & Output 01/24/23 01/25/23 01/25/23 18:59 06:59 18:59 Intake Total 1078 240 Output Total 1500 2100 800 Balance -422 -2100 -560 Weight 153 kg 151.2 kg Intake: Oral 1078 240 Output: Urine 1500 2100 800 Other: Voiding Method Toilet Toilet Toilet # Voids 1 1 - Exam PHYSICAL EXAMINATION: This is a 72-year-old male in no apparent distress at the time of my examination. HEENT: Head is atraumatic, normocephalic. Pupils are equal, round. Sclerae anicteric. Conjunctivae are clear. Mucous membranes of the mouth are moist. Neck is supple. There is no elevated jugular venous pressure. No carotid bruit is heard. CHEST EXAMINATION: Lungs reveal diminished air entry bilaterally. No wheezes rales or rhonchi. Respirations even and nonlabored. HEART EXAMINATION: Heart irregular rate and rhythm, positive S1 and S2. No S3. No S4. Systolic murmur. ABDOMEN: Edema noted, nontender. Abdomen softer today.. Bowel sounds are heard. No organomegaly noted. EXTREMITIES: Moderate right lower extremity edema and mild left lower extremity edema, chronic per patient, appears to be improving. NEUROLOGIC EXAMINATION: Patient is awake, alert and oriented x3. - Labs CBC & Chem 7: 01/25/23 06:26 01/25/23 06:26 Labs: Abnormal Lab Results - Last 24 Hours (Table) 01/24/23 01/25/23 01/25/23 Range/Units 16:23 06:26 06:26 RDW 16.5 H (11.5-15.5) % Lymphocytes # 0.7 L (1.0-4.8) k/uL Sodium 136 L (137-145) mmol/L Chloride 95 L (98-107) mmol/L Carbon Dioxide 33 H (22-30) mmol/L BUN 21 H (9-20) mg/dL Glucose 106 H (74-99) mg/dL POC Glucose (mg/dL) 117 H (70-110) mg/dL Magnesium 1.4 L (1.6-2.3) mg/dL 01/25/23 Range/Units 11:43 RDW (11.5-15.5) % Lymphocytes # (1.0-4.8) k/uL Sodium (137-145) mmol/L Chloride (98-107) mmol/L Carbon Dioxide (22-30) mmol/L BUN (9-20) mg/dL Glucose (74-99) mg/dL POC Glucose (mg/dL) 120 H (70-110) mg/dL Magnesium (1.6-2.3) mg/dL Assessment and Plan Assessment: #1 acute on chronic congestive heart failure with reduced ejection fraction #2 CAD with prior CABG #3 chronic persistent atrial fibrillation 4 hypertension #5 hyperlipidemia Plan: From cardiology's perspective continue IV Lasix. We will add spironolactone. We'll continue to follow renal function and electrolytes. Continue to follow the patient and provide further recommendations accordingly. PLAYBACK OPERATOR note has been reviewed, I agree with a documented findings and plan of care. Patient was seen and examined.
[2023-01-25 16:11] LABS: Glucose,Whole Blood 152 mg/dL (70-110)
[2023-01-25] MEDS: ATORVASTATIN 80 MG TAB PO SCH (19:36)
[2023-01-25 20:11] LABS: Glucose,Whole Blood 138 mg/dL (70-110)
[2023-01-26 06:03] LABS: Glucose,Whole Blood 116 mg/dL (70-110)
--- NOTE | 2023-01-26 09:34 | P.PN ---
Subjective Progress Note Date: 01/26/23 No new complaints today. Ongoing dyspnea, but improved. Diuresing well Gen: awake, alert HEENT: normocephalic, atraumatic, good hearing acuity, moist mucous membranes Resp: good air exchange, breathing comfortably with no accessory muscle use CVS: good distal perfusion x 4, GI: soft, NTTP, ND : no SPT, no CVAT, tang catheter not present MSK: no pitting edema, no clubbing Neuro: non-focal, moving all extremities Psych: cooperative, euthymic mood Hospital Course: 72 year old man with history of CAD s/p CABG, paroxysmal atrial fibrillation, HTN, HLD, DM presented for dyspnea. In the emergency room, patient was afebrile, 91/45, heart rate 73, 94% on room air. CBC is unremarkable. Basic metabolic panel shows a CO2 of 31, BUN of 23, creatinine 1.26. Magnesium was 1.4. Total bilirubin is 1.8, alkaline phosphatase was 147. Troponin was 0.014. BNP was 2610. EKG showed atrial fibrillation with controlled rate, no evidence of ischemia, right bundle branch block. Chest x-ray shows cardiomegaly with vascular congestion as well as bilateral pulmonary opacities consistent with heart failure. Case was discussed with the emergency room physician decision was made to admit the patient for further workup of heart failure exacerbation. Assessment: Acute on chronic systolic heart failure exacerbation, last known ejection fraction is 45% Acute on chronic right heart failure Acute kidney injury, improving Paroxysmal atrial fibrillation Hypertension Hyperlipidemia Diabetes type 2 CAD Plan: Today, patient is afebrile, 110/58, heart rate 82, 90% on 2 L nasal cannula CBC, basic metabolic panel, magnesium ordered for tomorrow Cardiology consult note reviewed, agree with diuretics Continue Lasix 60 mg IV twice a day Metoprolol 100 mg daily resumed Imdur 30 mg daily Continue apixaban 5 mg twice a day Patient is full code DVT prophylaxis covered with Apixiban Objective - Vital Signs Vital signs: Vital Signs Temp 98.1 F 01/26/23 04:00 Pulse 82 01/26/23 04:00 Resp 18 01/26/23 04:00 BP 110/58 01/26/23 04:00 Pulse Ox 90 L 01/26/23 07:40 FiO2 Intake & Output 01/25/23 01/26/23 01/26/23 18:59 06:59 18:59 Intake Total 480 358 Output Total 1475 1250 Balance -995 -1250 358 Weight 150 kg Intake: Oral 480 358 Output: Urine 1475 1250 Other: Voiding Method Toilet Toilet # Voids 1 1 - Labs CBC & Chem 7: 01/25/23 06:26 01/25/23 06:26 Labs: Abnormal Lab Results - Last 24 Hours (Table) 01/25/23 01/25/23 01/25/23 Range/Units 11:43 16:09 20:07 POC Glucose (mg/dL) 120 H 152 H 138 H (70-110) mg/dL 01/26/23 Range/Units 06:02 POC Glucose (mg/dL) 116 H (70-110) mg/dL
[2023-01-26] MEDS: FUROSEMIDE 10 MG/ML 10 ML VIAL IV SCH ×2 (09:55→20:24)
[2023-01-26] MEDS: traMADol 50 MG TAB PO PRN ×2 (09:55→18:15)
[2023-01-26] MEDS: MULTIVITAMINS, THERA 1 EACH TAB PO SCH (09:56)
[2023-01-26] MEDS: ASPIRIN 81 MG PO SCH ×2 (09:56→20:24)
[2023-01-26] MEDS: APIXABAN 5 MG TAB PO SCH ×2 (09:56→20:24)
[2023-01-26] MEDS: ISOSORBIDE MONONITRATE ER 30 MG TAB.ER.24H PO SCH (09:56)
[2023-01-26] MEDS: METOPROLOL SUCCINATE (ER) 100 MG TAB.ER.24H PO SCH (09:56)
[2023-01-26] MEDS: SPIRONOLACTONE 25 MG TAB PO SCH (09:56)
[2023-01-26] MEDS: DAPAGLIFLOZIN PROPANEDIOL 10 MG TABLET PO SCH (09:57)
[2023-01-26] MEDS: SACUBITRIL/VALSARTAN 24 MG-26 MG TABLET PO SCH ×2 (09:57→20:24)
[2023-01-26 10:04] LABS: African American GFR (CKD) 69 (>60 ml/min/1.73 sqM); Anion Gap 6 mmol/L; Blood Urea Nitrogen 20 mg/dL (9-20); Calcium 8.7 mg/dL (8.4-10.2); Carbon Dioxide 39 mmol/L (22-30); Chloride 92 mmol/L (98-107); Glucose 137 mg/dL (74-99); Non-African American GFR(CKD) 60 (>60 ml/min/1.73 sqM); Potassium 4.3 mmol/L (3.5-5.1); Sodium 137 mmol/L (137-145)
[2023-01-26 10:49] LABS: Anisocytosis Slight; Basophils % (A) 0 %; Eosinophils # (A) 0.2 k/uL (0-0.7); Eosinophils % (A) 3 %; HCT 42.8 % (39.0-53.0); HGB 13.4 gm/dL (13.0-17.5); Hypochromasia Slight; Lymphocytes # (A) 0.7 k/uL (1.0-4.8); Lymphocytes % (A) 11 %; MCH 29.8 pg (25.0-35.0); MCHC 31.3 g/dL (31.0-37.0); Mean Platelet Volume 8.5; Monocytes # (A) 0.4 k/uL (0-1.0); Monocytes % (A) 6 %; Neutrophils # (A) 4.9 k/uL (1.3-7.7); Neutrophils % (A) 77 %; Platelet Count 180 k/uL (150-450); RBC 4.51 m/uL (4.30-5.90); RDW 16.6 % (11.5-15.5); WBC 6.4 k/uL (3.8-10.6)
[2023-01-26 11:49] LABS: Glucose,Whole Blood 111 mg/dL (70-110)
--- NOTE | 2023-01-26 12:03 | P.PN ---
Subjective HISTORY OF PRESENTING ILLNESS This is a pleasant 72-year-old gentleman who follows in the office with Dr. Medrano. Has a history of CAD with prior CABG, myopathy, prior atrial flutter ablation in 2020 and subsequent atrial fibrillation ablation in 2021 that was unsuccessful, and a persistent atrial fibrillation with controlled ventricular response he is anticoagulated. Also has a history of hypertension, hyperlipidemia and diabetes. He presented with complaints of shortness of breath. He initially presented a few days ago to his primary care provider with complaints of progressively worsening dyspnea on exertion over the last month at that time he was noted to have a 23 pound weight gain over the last month. His Lasix was increased and he presented again on Thursday for follow-up with no improvement in his symptoms. A chest x-ray that showed possible CHF exacerbation with cardiomegaly and mild to moderate central vascular congestion. He was advised to come to the emergency department. To probing. With elevated at 2610. He was initiated on IV Lasix. Upon examination he is overall feeling better. Continues to have lower extremity edema that is chronic and he feels unchanged. He does have edema in his abdomen that he feels is improving. 01/25/2023 The patient was seen and examined resting comfortably in bed. Overall feeling significantly better. His breathing has improved. Vital signs are stable. Echocardiogram with Doppler study showed ejection fraction 30-35% with severe pulmonary hypertension and dilated RV, moderate TR and mild MR. Echocardiogram in the past showed an ejection fraction of around 40-45%. Renal function has been stable. PHYSICAL EXAMINATION Vital signs reviewed. CONSTITUTIONAL: No apparent distress. HEENT: Head is normocephalic. Pupils are equal, round. Sclerae anicteric. Mucous membranes of the mouth are moist. No JVD. No carotid bruit. CHEST EXAMINATION: Lungs are clear to auscultation. No chest wall tenderness is noted on palpation or with deep breathing. HEART EXAMINATION: Regular rate and rhythm. S1, S2 heard. No murmurs, gallops or rub. ABDOMEN: Soft, nontender. Positive bowel sounds. EXTREMITIES: 2+ peripheral pulses, no lower extremity edema and no calf tenderness. NEUROLOGIC EXAMINATION: Patient is awake, alert and oriented x3. Assessment: #1 acute on chronic congestive heart failure with reduced ejection fraction #2 CAD with prior CABG #3 chronic persistent atrial fibrillation 4 hypertension #5 hyperlipidemia Plan: Patient does still have significant edema. He has been placed on heart failure regimen with Entresto, Aldactone, Metoprolol and Farxiga. Continue with diuretics. Possible discharge home 24-48 hours if continues improved. Monitor creatinine closely. Objective - Vital Signs Vital signs: Vital Signs Temp 97.3 F L 01/26/23 09:54 Pulse 72 01/26/23 09:54 Resp 18 01/26/23 09:54 BP 101/70 01/26/23 09:54 Pulse Ox 93 L 01/26/23 09:54 FiO2 Intake & Output 01/25/23 01/26/23 01/26/23 18:59 06:59 18:59 Intake Total 480 358 Output Total 1475 1250 300 Balance -995 -1250 58 Weight 150 kg Intake: Oral 480 358 Output: Urine 1475 1250 300 Other: Voiding Method Toilet Toilet # Voids 1 1 # Bowel Movements 1 - Labs CBC & Chem 7: 01/26/23 08:40 01/26/23 08:40 Labs: Abnormal Lab Results - Last 24 Hours (Table) 01/25/23 01/25/23 01/26/23 Range/Units 16:09 20:07 06:02 RDW (11.5-15.5) % Lymphocytes # (1.0-4.8) k/uL Chloride (98-107) mmol/L Carbon Dioxide (22-30) mmol/L Glucose (74-99) mg/dL POC Glucose (mg/dL) 152 H 138 H 116 H (70-110) mg/dL 01/26/23 01/26/23 01/26/23 Range/Units 08:40 08:40 11:41 RDW 16.6 H (11.5-15.5) % Lymphocytes # 0.7 L (1.0-4.8) k/uL Chloride 92 L (98-107) mmol/L Carbon Dioxide 39 H (22-30) mmol/L Glucose 137 H (74-99) mg/dL POC Glucose (mg/dL) 111 H (70-110) mg/dL
[2023-01-26 16:38] LABS: Glucose,Whole Blood 203 mg/dL (70-110)
[2023-01-26 20:06] LABS: Glucose,Whole Blood 127 mg/dL (70-110)
[2023-01-26] MEDS: ATORVASTATIN 80 MG TAB PO SCH (20:24)
[2023-01-27 06:06] LABS: Glucose,Whole Blood 110 mg/dL (70-110)
[2023-01-27] MEDS: FUROSEMIDE 10 MG/ML 10 ML VIAL IV SCH ×2 (08:39→20:15)
[2023-01-27] MEDS: traMADol 50 MG TAB PO PRN ×2 (08:40→16:16)
[2023-01-27] MEDS: SACUBITRIL/VALSARTAN 24 MG-26 MG TABLET PO SCH ×2 (08:40→20:20)
[2023-01-27] MEDS: DAPAGLIFLOZIN PROPANEDIOL 10 MG TABLET PO SCH (08:40)
[2023-01-27] MEDS: ASPIRIN 81 MG PO SCH ×2 (08:40→20:15)
[2023-01-27] MEDS: SPIRONOLACTONE 25 MG TAB PO SCH (08:40)
[2023-01-27] MEDS: METOPROLOL SUCCINATE (ER) 100 MG TAB.ER.24H PO SCH (08:42)
[2023-01-27] MEDS: ISOSORBIDE MONONITRATE ER 30 MG TAB.ER.24H PO SCH (08:42)
[2023-01-27] MEDS: APIXABAN 5 MG TAB PO SCH ×2 (08:42→20:15)
[2023-01-27] MEDS: MULTIVITAMINS, THERA 1 EACH TAB PO SCH (08:42)
[2023-01-27 11:39] LABS: Glucose,Whole Blood 116 mg/dL (70-110)
[2023-01-27 12:06] LABS: Anisocytosis Slight; Basophils % (A) 0 %; Eosinophils # (A) 0.2 k/uL (0-0.7); Eosinophils % (A) 3 %; HCT 43.7 % (39.0-53.0); HGB 13.8 gm/dL (13.0-17.5); Hypochromasia Slight; Lymphocytes # (A) 0.7 k/uL (1.0-4.8); Lymphocytes % (A) 10 %; MCHC 31.5 g/dL (31.0-37.0); MCV 95.3 fL (80.0-100.0); Monocytes # (A) 0.5 k/uL (0-1.0); Monocytes % (A) 8 %; Neutrophils # (A) 5.2 k/uL (1.3-7.7); Neutrophils % (A) 77 %; Platelet Count 201 k/uL (150-450); RBC 4.59 m/uL (4.30-5.90); RDW 16.3 % (11.5-15.5); WBC 6.8 k/uL (3.8-10.6)
[2023-01-27 12:15] LABS: African American GFR (CKD) 83 (>60 ml/min/1.73 sqM); Anion Gap 7 mmol/L; Blood Urea Nitrogen 21 mg/dL (9-20); Calcium 8.9 mg/dL (8.4-10.2); Carbon Dioxide 39 mmol/L (22-30); Chloride 92 mmol/L (98-107); Glucose 124 mg/dL (74-99); Magnesium 1.8 mg/dL (1.6-2.3); Non-African American GFR(CKD) 72 (>60 ml/min/1.73 sqM); Potassium 4.2 mmol/L (3.5-5.1); Sodium 138 mmol/L (137-145)
--- NOTE | 2023-01-27 14:07 | P.PN ---
Subjective Progress Note Date: 01/27/23 72 year old man with history of CAD s/p CABG, paroxysmal atrial fibrillation, HTN, HLD, DM presented for dyspnea. In the emergency room, patient was afebrile, 91/45, heart rate 73, 94% on room air. CBC is unremarkable. Basic metabolic panel shows a CO2 of 31, BUN of 23, creatinine 1.26. Magnesium was 1.4. Total bilirubin is 1.8, alkaline phosphatase was 147. Troponin was 0.014. BNP was 2610. EKG showed atrial fibrillation with controlled rate, no evidence of ischemia, right bundle branch block. Chest x-ray shows cardiomegaly with vascular congestion as well as bilateral pulmonary opacities consistent with heart failure. Case was discussed with the emergency room physician decision was made to admit the patient for further workup of heart failure exacerbation. Patient was diuresed with Lasix 60 mg IV twice a day. Echo cardiac showed EF of 30-35% with dilated right ventricle and severe pulmonary hypertension. Patient was seen and examined. No acute events overnight. Patient is -2245 mL fluid balance. He is 329 pounds today. States his weight is usually 325 lbs. Breathing has improved. He continues to complain of significant lower extremity swelling. O2 saturation dropped to 88% this morning on room air. General: non toxic, no distress, appears at stated age Derm: warm, dry Head: atraumatic, normocephalic, symmetric Eyes: EOMI, no lid lag, anicteric sclera Mouth: no lip lesion, mucus membranes moist Cardiovascular: S1S2 reg, no murmur Lungs: CTA bilateral, no rhonchi, no rales , no accessory muscle use Ext: no gross muscle atrophy, 2-3+ edema, no contractures Neuro: no focal neuro deficits Psych: Alert, oriented, appropriate affect Acute hypoxic respiratory failure Acute on chronic systolic heart failure exacerbation, EF 30-35% Acute on chronic right heart failure Hypochloremic metabolic alkalosis Paroxysmal atrial fibrillation Hypertension Hyperlipidemia Diabetes type 2 CAD CBC is relatively benign. BMP shows chloride of 92, bicarbonate 39, BUN of 21, glucose 124. Magnesium is 1.8. Continue Lasix 60 mg IV twice a day for 1 more day. Anticipate he can be transitioned to oral Lasix tomorrow. 2 gram magnesium sulfate ordered today. Lasix is nephrotoxic, BMP ordered for tomorrow morning. Home oxygen evaluation prior to discharge. Patient educated on low salt diet and fluid restriction. Continue Metoprolol 100 mg PO QD, Entresto 24-26 mg PO BID, Aldactone 25 mg PO QD. A-Fib: Continue metoprolol 100 mg by mouth daily. Elqiuis 5 mg PO BID. Anticipate discharge in 1-2 days. Objective - Vital Signs Vital signs: Vital Signs Temp 97.8 F 01/27/23 12:00 Pulse 68 01/27/23 12:00 Resp 18 01/27/23 12:00 BP 118/78 01/27/23 12:00 Pulse Ox 95 01/27/23 12:00 FiO2 Intake & Output 01/26/23 01/27/23 01/27/23 18:59 06:59 18:59 Intake Total 1134 118 Output Total 1150 1200 700 Balance -16 -1200 -582 Weight 149.3 kg Intake: Oral 1134 118 Output: Urine 1150 1200 700 Other: Voiding Method Toilet Toilet Toilet # Bowel Movements 1 - Labs CBC & Chem 7: 01/27/23 11:26 01/27/23 11:26 Labs: Abnormal Lab Results - Last 24 Hours (Table) 01/26/23 01/26/23 01/27/23 Range/Units 16:36 20:04 11:26 RDW 16.3 H (11.5-15.5) % Lymphocytes # 0.7 L (1.0-4.8) k/uL Chloride (98-107) mmol/L Carbon Dioxide (22-30) mmol/L BUN (9-20) mg/dL Glucose (74-99) mg/dL POC Glucose (mg/dL) 203 H 127 H (70-110) mg/dL 01/27/23 01/27/23 Range/Units 11:26 11:37 RDW (11.5-15.5) % Lymphocytes # (1.0-4.8) k/uL Chloride 92 L (98-107) mmol/L Carbon Dioxide 39 H (22-30) mmol/L BUN 21 H (9-20) mg/dL Glucose 124 H (74-99) mg/dL POC Glucose (mg/dL) 116 H (70-110) mg/dL
[2023-01-27] MEDS: MAGNESIUM SULFATE-D5W PMX 1 GM in DEXTROSE/WATER 1 100ML.BAG IVPB SCH ×2 (16:16→17:33)
[2023-01-27 16:22] LABS: Glucose,Whole Blood 119 mg/dL (70-110)
--- NOTE | 2023-01-27 17:25 | P.PN ---
Subjective HISTORY OF PRESENTING ILLNESS This is a pleasant 72-year-old gentleman who follows in the office with Dr. Medrano. Has a history of CAD with prior CABG, myopathy, prior atrial flutter ablation in 2020 and subsequent atrial fibrillation ablation in 2021 that was unsuccessful, and a persistent atrial fibrillation with controlled ventricular response he is anticoagulated. Also has a history of hypertension, hyperlipidemia and diabetes. He presented with complaints of shortness of breath. He initially presented a few days ago to his primary care provider with complaints of progressively worsening dyspnea on exertion over the last month at that time he was noted to have a 23 pound weight gain over the last month. His Lasix was increased and he presented again on Thursday for follow-up with no improvement in his symptoms. A chest x-ray that showed possible CHF exacerbation with cardiomegaly and mild to moderate central vascular congestion. He was advised to come to the emergency department. To probing. With elevated at 2610. He was initiated on IV Lasix. Upon examination he is overall feeling better. Continues to have lower extremity edema that is chronic and he feels unchanged. He does have edema in his abdomen that he feels is improving. 01/25/2023 The patient was seen and examined resting comfortably in bed. Overall feeling significantly better. His breathing has improved. Vital signs are stable. Echocardiogram with Doppler study showed ejection fraction 30-35% with severe pulmonary hypertension and dilated RV, moderate TR and mild MR. Echocardiogram in the past showed an ejection fraction of around 40-45%. Renal function has been stable. 01/27 Patient seen and examined. He has a good urine output however sought oxygen. Still does have significant pitting edema in his abdomen. Still likely has tended 20 pounds of fluid. PHYSICAL EXAMINATION Vital signs reviewed. CONSTITUTIONAL: No apparent distress. HEENT: Head is normocephalic. Pupils are equal, round. Sclerae anicteric. Mucous membranes of the mouth are moist. No JVD. No carotid bruit. CHEST EXAMINATION: Lungs are clear to auscultation. No chest wall tenderness is noted on palpation or with deep breathing. HEART EXAMINATION: Regular rate and rhythm. S1, S2 heard. No murmurs, gallops or rub. ABDOMEN: Soft, nontender. Positive bowel sounds. EXTREMITIES: 2+ peripheral pulses, no lower extremity edema and no calf tenderness. NEUROLOGIC EXAMINATION: Patient is awake, alert and oriented x3. Assessment: #1 acute on chronic congestive heart failure with reduced ejection fraction #2 CAD with prior CABG #3 chronic persistent atrial fibrillation 4 hypertension #5 hyperlipidemia Plan: Continue heart failure regimen with Entresto, Aldactone, Metoprolol and Farxiga. Still with significant pitting edema of abdomen as well as LE edema. Needs 10- 15 more lbs off. Continue with IV Lasix however add Zaroxoly. Monitor creatinine closely. Objective - Vital Signs Vital signs: Vital Signs Temp 97.8 F 01/27/23 12:00 Pulse 68 01/27/23 12:00 Resp 18 01/27/23 12:00 BP 118/78 01/27/23 12:00 Pulse Ox 95 01/27/23 12:00 FiO2 Intake & Output 01/26/23 01/27/23 01/27/23 18:59 06:59 18:59 Intake Total 1134 776 Output Total 1150 1200 1650 Balance -16 -1200 -874 Weight 149.3 kg Intake: Oral 1134 776 Output: Urine 1150 1200 1650 Other: Voiding Method Toilet Toilet Toilet # Bowel Movements 1 - Labs CBC & Chem 7: 01/27/23 11:26 01/27/23 11:26 Labs: Abnormal Lab Results - Last 24 Hours (Table) 01/26/23 01/27/23 01/27/23 Range/Units 20:04 11:26 11:26 RDW 16.3 H (11.5-15.5) % Lymphocytes # 0.7 L (1.0-4.8) k/uL Chloride 92 L (98-107) mmol/L Carbon Dioxide 39 H (22-30) mmol/L BUN 21 H (9-20) mg/dL Glucose 124 H (74-99) mg/dL POC Glucose (mg/dL) 127 H (70-110) mg/dL 01/27/23 01/27/23 Range/Units 11:37 16:18 RDW (11.5-15.5) % Lymphocytes # (1.0-4.8) k/uL Chloride (98-107) mmol/L Carbon Dioxide (22-30) mmol/L BUN (9-20) mg/dL Glucose (74-99) mg/dL POC Glucose (mg/dL) 116 H 119 H (70-110) mg/dL
[2023-01-27 20:01] LABS: Glucose,Whole Blood 133 mg/dL (70-110)
[2023-01-27] MEDS: ATORVASTATIN 80 MG TAB PO SCH (20:15)
[2023-01-27] MEDS: metOLazone 5 MG TAB PO SCH (20:15)
[2023-01-28] MEDS: traMADol 50 MG TAB PO SCH ×4 (00:03→20:20)
[2023-01-28 06:04] LABS: Glucose,Whole Blood 108 mg/dL (70-110)
[2023-01-28] MEDS ORDERED: traMADol 50 MG TAB PO SCH (08:00)
[2023-01-28] MEDS: METOPROLOL SUCCINATE (ER) 100 MG TAB.ER.24H PO SCH (09:23)
[2023-01-28] MEDS: ASPIRIN 81 MG PO SCH ×2 (09:23→20:21)
[2023-01-28] MEDS: DAPAGLIFLOZIN PROPANEDIOL 10 MG TABLET PO SCH (09:23)
[2023-01-28] MEDS: metOLazone 5 MG TAB PO SCH (09:23)
[2023-01-28] MEDS: SACUBITRIL/VALSARTAN 24 MG-26 MG TABLET PO SCH ×2 (09:23→20:22)
[2023-01-28] MEDS: SPIRONOLACTONE 25 MG TAB PO SCH (09:23)
[2023-01-28] MEDS: ISOSORBIDE MONONITRATE ER 30 MG TAB.ER.24H PO SCH (09:23)
[2023-01-28] MEDS: APIXABAN 5 MG TAB PO SCH ×2 (09:24→20:21)
[2023-01-28] MEDS: MULTIVITAMINS, THERA 1 EACH TAB PO SCH (09:24)
[2023-01-28] MEDS: FUROSEMIDE 10 MG/ML 10 ML VIAL IV SCH ×2 (09:24→20:22)
--- NOTE | 2023-01-28 09:45 | P.PN ---
Subjective Progress Note Date: 01/28/23 No new complaints today. Dyspnea has resolved, diuresing well. Gen: awake, alert HEENT: normocephalic, atraumatic, good hearing acuity, moist mucous membranes Resp: good air exchange, breathing comfortably with no accessory muscle use CVS: good distal perfusion x 4, GI: soft, NTTP, ND : no SPT, no CVAT, tang catheter not present MSK: no pitting edema, no clubbing Neuro: non-focal, moving all extremities Psych: cooperative, euthymic mood Hospital Course: 72 year old man with history of CAD s/p CABG, paroxysmal atrial fibrillation, HTN, HLD, DM presented for dyspnea. In the emergency room, patient was afebrile, 91/45, heart rate 73, 94% on room air. CBC is unremarkable. Basic metabolic panel shows a CO2 of 31, BUN of 23, creatinine 1.26. Magnesium was 1.4. Total bilirubin is 1.8, alkaline phosphatase was 147. Troponin was 0.014. BNP was 2610. EKG showed atrial fibrillation with controlled rate, no evidence of ischemia, right bundle branch block. Chest x-ray shows cardiomegaly with vascular congestion as well as bilateral pulmonary opacities consistent with heart failure. Case was discussed with the emergency room physician decision was made to admit the patient for further workup of heart failure exacerbation. Assessment: Acute on chronic systolic heart failure exacerbation, last known ejection fraction is 45% Acute on chronic right heart failure Acute kidney injury, improving Paroxysmal atrial fibrillation Hypertension Hyperlipidemia Diabetes type 2 CAD Plan: Today, patient is afebrile, 121/65, heart rate 71, 92% on 2 L nasal cannula CBC, basic metabolic panel, magnesium ordered for tomorrow Cardiology consult note reviewed, agree with diuretics, added metolazone Continue Lasix 60 mg IV twice a day Continue metolazone 5mg daily Metoprolol 100 mg daily resumed Imdur 30 mg daily Continue apixaban 5 mg twice a day Patient is full code DVT prophylaxis covered with [employer] Objective - Vital Signs Vital signs: Vital Signs Temp 97.5 F L 01/28/23 04:00 Pulse 71 01/28/23 04:00 Resp 18 01/28/23 04:00 BP 121/65 01/28/23 04:00 Pulse Ox 92 L 01/28/23 07:51 FiO2 Intake & Output 01/27/23 01/28/23 01/28/23 18:59 06:59 18:59 Intake Total 894 358 Output Total 1950 2900 Balance -1056 -2900 358 Weight 146.9 kg Intake: Oral 894 358 Output: Urine 1950 2900 Other: Voiding Method Toilet Toilet # Voids 2 - Labs CBC & Chem 7: 01/27/23 11:26 01/27/23 11:26 Labs: Abnormal Lab Results - Last 24 Hours (Table) 01/27/23 01/27/23 01/27/23 Range/Units 11:26 11:26 11:37 RDW 16.3 H (11.5-15.5) % Lymphocytes # 0.7 L (1.0-4.8) k/uL Chloride 92 L (98-107) mmol/L Carbon Dioxide 39 H (22-30) mmol/L BUN 21 H (9-20) mg/dL Glucose 124 H (74-99) mg/dL POC Glucose (mg/dL) 116 H (70-110) mg/dL 01/27/23 01/27/23 Range/Units 16:18 20:00 RDW (11.5-15.5) % Lymphocytes # (1.0-4.8) k/uL Chloride (98-107) mmol/L Carbon Dioxide (22-30) mmol/L BUN (9-20) mg/dL Glucose (74-99) mg/dL POC Glucose (mg/dL) 119 H 133 H (70-110) mg/dL
[2023-01-28 11:18] LABS: Anisocytosis Slight; Basophils % (A) 1 %; Eosinophils # (A) 0.3 k/uL (0-0.7); Eosinophils % (A) 4 %; HCT 44.5 % (39.0-53.0); HGB 13.7 gm/dL (13.0-17.5); Hypochromasia Slight; Lymphocytes # (A) 0.7 k/uL (1.0-4.8); Lymphocytes % (A) 11 %; MCHC 30.9 g/dL (31.0-37.0); MCV 93.8 fL (80.0-100.0); Mean Platelet Volume 8.5; Monocytes # (A) 0.4 k/uL (0-1.0); Monocytes % (A) 7 %; Neutrophils % (A) 76 %; Platelet Count 193 k/uL (150-450); RBC 4.74 m/uL (4.30-5.90); RDW 16.6 % (11.5-15.5); WBC 6.6 k/uL (3.8-10.6)
[2023-01-28 11:27] LABS: Glucose,Whole Blood 126 mg/dL (70-110)
[2023-01-28 11:34] LABS: African American GFR (CKD) 80 (>60 ml/min/1.73 sqM); Anion Gap 9 mmol/L; Blood Urea Nitrogen 22 mg/dL (9-20); Calcium 9.1 mg/dL (8.4-10.2); Carbon Dioxide 39 mmol/L (22-30); Chloride 88 mmol/L (98-107); Glucose 146 mg/dL (74-99); Non-African American GFR(CKD) 69 (>60 ml/min/1.73 sqM); Potassium 3.9 mmol/L (3.5-5.1); Sodium 136 mmol/L (137-145)
--- NOTE | 2023-01-28 12:31 | P.PN ---
Subjective HISTORY OF PRESENTING ILLNESS This is a pleasant 72-year-old gentleman who follows in the office with Dr. Medrano. Has a history of CAD with prior CABG, myopathy, prior atrial flutter ablation in 2020 and subsequent atrial fibrillation ablation in 2021 that was unsuccessful, and a persistent atrial fibrillation with controlled ventricular response he is anticoagulated. Also has a history of hypertension, hyperlipidemia and diabetes. He presented with complaints of shortness of breath. He initially presented a few days ago to his primary care provider with complaints of progressively worsening dyspnea on exertion over the last month at that time he was noted to have a 23 pound weight gain over the last month. His Lasix was increased and he presented again on Thursday for follow-up with no improvement in his symptoms. A chest x-ray that showed possible CHF exacerbation with cardiomegaly and mild to moderate central vascular congestion. He was advised to come to the emergency department. To probing. With elevated at 2610. He was initiated on IV Lasix. Upon examination he is overall feeling better. Continues to have lower extremity edema that is chronic and he feels unchanged. He does have edema in his abdomen that he feels is improving. 01/25/2023 The patient was seen and examined resting comfortably in bed. Overall feeling significantly better. His breathing has improved. Vital signs are stable. Echocardiogram with Doppler study showed ejection fraction 30-35% with severe pulmonary hypertension and dilated RV, moderate TR and mild MR. Echocardiogram in the past showed an ejection fraction of around 40-45%. Renal function has been stable. 01/27 Patient seen and examined. He has a good urine output however sought oxygen. Still does have significant pitting edema in his abdomen. Still likely has tended 20 pounds of fluid. 01/28 Patient seen and examined. Patient started on Zaroxolyn yesterday with dramati destiny increased urine output -4 L or last 24 hours. He still has significant lower extremity and abdominal edema. Creatinine has been stable 1.0. PHYSICAL EXAMINATION Vital signs reviewed. CONSTITUTIONAL: No apparent distress. HEENT: Head is normocephalic. Pupils are equal, round. Sclerae anicteric. Mucous membranes of the mouth are moist. No JVD. No carotid bruit. CHEST EXAMINATION: Lungs are clear to auscultation. No chest wall tenderness is noted on palpation or with deep breathing. HEART EXAMINATION: Regular rate and rhythm. S1, S2 heard. No murmurs, gallops or rub. ABDOMEN: Soft, nontender. Positive bowel sounds. EXTREMITIES: 2+ peripheral pulses, no lower extremity edema and no calf tenderness. NEUROLOGIC EXAMINATION: Patient is awake, alert and oriented x3. Assessment: #1 acute on chronic congestive heart failure with reduced ejection fraction #2 CAD with prior CABG #3 chronic persistent atrial fibrillation 4 hypertension #5 hyperlipidemia Plan: Continue heart failure regimen with Entresto, Aldactone, Metoprolol and Farxiga. Patient still having significant edema and continue with IV Lasix as well as Zaroxolyn. Objective - Vital Signs Vital signs: Vital Signs Temp 97.1 F L 01/28/23 08:00 Pulse 70 01/28/23 08:00 Resp 18 01/28/23 08:00 BP 113/69 01/28/23 08:00 Pulse Ox 93 L 01/28/23 08:00 FiO2 Intake & Output 01/27/23 01/28/23 01/28/23 18:59 06:59 18:59 Intake Total 894 358 Output Total 1950 2900 1200 Balance -1056 -2900 -842 Weight 146.9 kg Intake: Oral 894 358 Output: Urine 1950 2900 1200 Other: Voiding Method Toilet Toilet Toilet # Voids 2 - Labs CBC & Chem 7: 01/28/23 10:30 01/28/23 10:30 Labs: Abnormal Lab Results - Last 24 Hours (Table) 01/27/23 01/27/23 01/28/23 Range/Units 16:18 20:00 10:30 MCHC 30.9 L (31.0-37.0) g/dL RDW 16.6 H (11.5-15.5) % Lymphocytes # 0.7 L (1.0-4.8) k/uL Sodium (137-145) mmol/L Chloride (98-107) mmol/L Carbon Dioxide (22-30) mmol/L BUN (9-20) mg/dL Glucose (74-99) mg/dL POC Glucose (mg/dL) 119 H 133 H (70-110) mg/dL 01/28/23 01/28/23 Range/Units 10:30 11:23 MCHC (31.0-37.0) g/dL RDW (11.5-15.5) % Lymphocytes # (1.0-4.8) k/uL Sodium 136 L (137-145) mmol/L Chloride 88 L (98-107) mmol/L Carbon Dioxide 39 H (22-30) mmol/L BUN 22 H (9-20) mg/dL Glucose 146 H (74-99) mg/dL POC Glucose (mg/dL) 126 H (70-110) mg/dL
[2023-01-28 16:13] LABS: Glucose,Whole Blood 163 mg/dL (70-110)
[2023-01-28] MEDS: ATORVASTATIN 80 MG TAB PO SCH (20:21)
[2023-01-28 20:59] LABS: Glucose,Whole Blood 136 mg/dL (70-110)
[2023-01-29 06:12] LABS: Glucose,Whole Blood 121 mg/dL (70-110)
[2023-01-29] MEDS: FUROSEMIDE 10 MG/ML 10 ML VIAL IV SCH ×2 (08:21→20:14)
[2023-01-29] MEDS: DAPAGLIFLOZIN PROPANEDIOL 10 MG TABLET PO SCH (08:22)
[2023-01-29] MEDS: traMADol 50 MG TAB PO SCH ×3 (08:22→20:13)
[2023-01-29] MEDS: SACUBITRIL/VALSARTAN 24 MG-26 MG TABLET PO SCH ×2 (08:22→20:14)
[2023-01-29] MEDS: ASPIRIN 81 MG PO SCH ×2 (08:22→20:13)
[2023-01-29] MEDS: METOPROLOL SUCCINATE (ER) 100 MG TAB.ER.24H PO SCH (08:22)
[2023-01-29] MEDS: metOLazone 5 MG TAB PO SCH (08:22)
[2023-01-29] MEDS: APIXABAN 5 MG TAB PO SCH ×2 (08:22→20:13)
[2023-01-29] MEDS: MULTIVITAMINS, THERA 1 EACH TAB PO SCH (08:22)
[2023-01-29] MEDS: ISOSORBIDE MONONITRATE ER 30 MG TAB.ER.24H PO SCH (08:22)
[2023-01-29] MEDS: SPIRONOLACTONE 25 MG TAB PO SCH (08:22)
[2023-01-29 08:46] LABS: Anisocytosis Slight; Basophils % (A) 0 %; Eosinophils # (A) 0.3 k/uL (0-0.7); Eosinophils % (A) 4 %; HCT 43.6 % (39.0-53.0); HGB 14.1 gm/dL (13.0-17.5); Hypochromasia Slight; Lymphocytes # (A) 0.7 k/uL (1.0-4.8); Lymphocytes % (A) 11 %; MCH 30.3 pg (25.0-35.0); MCHC 32.3 g/dL (31.0-37.0); Monocytes # (A) 0.4 k/uL (0-1.0); Monocytes % (A) 6 %; Neutrophils # (A) 4.9 k/uL (1.3-7.7); Neutrophils % (A) 77 %; Platelet Count 204 k/uL (150-450); RBC 4.64 m/uL (4.30-5.90); RDW 16.5 % (11.5-15.5); WBC 6.4 k/uL (3.8-10.6)
[2023-01-29 09:06] LABS: African American GFR (CKD) 73 (>60 ml/min/1.73 sqM); Blood Urea Nitrogen 24 mg/dL (9-20); Calcium 9.3 mg/dL (8.4-10.2); Chloride 85 mmol/L (98-107); Glucose 172 mg/dL (74-99); Magnesium 1.8 mg/dL (1.6-2.3); Non-African American GFR(CKD) 63 (>60 ml/min/1.73 sqM); Potassium 3.8 mmol/L (3.5-5.1); Sodium 134 mmol/L (137-145)
[2023-01-29 09:12] LABS: Anion Gap 12 mmol/L
[2023-01-29 09:23] LABS: Carbon Dioxide 37 mmol/L (22-30)
[2023-01-29 11:57] LABS: Glucose,Whole Blood 119 mg/dL (70-110)
--- NOTE | 2023-01-29 14:11 | P.PN ---
Subjective Progress Note Date: 01/29/23 HISTORY OF PRESENTING ILLNESS This is a pleasant 72-year-old gentleman who follows in the office with Dr. Medrano. Has a history of CAD with prior CABG, myopathy, prior atrial flutter ablation in 2020 and subsequent atrial fibrillation ablation in 2021 that was unsuccessful, and a persistent atrial fibrillation with controlled ventricular response he is anticoagulated. Also has a history of hypertension, hyperlipidemia and diabetes. He presented with complaints of shortness of breath. He initially presented a few days ago to his primary care provider with complaints of progressively worsening dyspnea on exertion over the last month at that time he was noted to have a 23 pound weight gain over the last month. His Lasix was increased and he presented again on Thursday for follow-up with no improvement in his symptoms. A chest x-ray that showed possible CHF exacerbation with cardiomegaly and mild to moderate central vascular congestion. He was advised to come to the emergency department. To probing. With elevated at 2610. He was initiated on IV Lasix. Upon examination he is overall feeling better. Continues to have lower extremity edema that is chronic and he feels unchanged. He does have edema in his abdomen that he feels is improving. 01/25/2023 The patient was seen and examined resting comfortably in bed. Overall feeling significantly better. His breathing has improved. Vital signs are stable. Echocardiogram with Doppler study showed ejection fraction 30-35% with severe pulmonary hypertension and dilated RV, moderate TR and mild MR. Echocardiogram in the past showed an ejection fraction of around 40-45%. Renal function has been stable. 01/27 Patient seen and examined. He has a good urine output however sought oxygen. Still does have significant pitting edema in his abdomen. Still likely has tended 20 pounds of fluid. 01/28 Patient seen and examined. Patient started on Zaroxolyn yesterday with dramatically increased urine output -4 L or last 24 hours. He still has significant lower extremity and abdominal edema. Creatinine has been stable 1.0. 01/29 Patient is seen today in follow-up. He has less shortness of breath and lower extremity edema but continues to have significant edema right greater than left. He is diuresed 3900 and the past 24 hours. Repeat potassium 3.8, BUN 24 creatinine 1.15. Telemetry is a sinus rhythm. PHYSICAL EXAMINATION Vital signs reviewed. CONSTITUTIONAL: No apparent distress. HEENT: Head is normocephalic. Pupils are equal, round. Sclerae anicteric. Mucous membranes of the mouth are moist. No JVD. No carotid bruit. CHEST EXAMINATION: Lungs are clear to auscultation. No chest wall tenderness is noted on palpation or with deep breathing. HEART EXAMINATION: Regular rate and rhythm. S1, S2 heard. No murmurs, gallops or rub. ABDOMEN: Soft, nontender. Positive bowel sounds. EXTREMITIES: 2+ peripheral pulses, 2+ left lower extremity edema, 3+ right lower extremity edema, no calf tenderness. NEUROLOGIC EXAMINATION: Patient is awake, alert and oriented x3. Assessment: #1 acute on chronic congestive heart failure with reduced ejection fraction #2 CAD with prior CABG #3 chronic persistent atrial fibrillation 4 hypertension #5 hyperlipidemia Plan: Continue heart failure regimen with Entresto, Aldactone, Metoprolol and Farxiga. Patient still having significant edema and continue with IV Lasix for another 24 hours as well as Zaroxolyn. Nurse practitioner note has been reviewed, I agree with the documented findings and plan of care. Patient was seen and examined. Objective - Vital Signs Vital signs: Vital Signs Temp 98.0 F 01/29/23 08:13 Pulse 65 01/29/23 11:01 Resp 20 01/29/23 11:01 BP 128/74 01/29/23 11:01 Pulse Ox 93 L 01/29/23 11:01 FiO2 Intake & Output 01/28/23 01/29/23 01/29/23 18:59 06:59 18:59 Intake Total 476 120 480 Output Total 1999 2300 300 Balance -1524 -2180 180 Weight 144.1 kg Intake: Oral 476 120 480 Output: Urine 1999 2300 300 Other: Voiding Method Toilet Toilet Toilet # Voids 2 - Labs CBC & Chem 7: 01/29/23 08:29 01/29/23 08:29 Labs: Abnormal Lab Results - Last 24 Hours (Table) 01/28/23 01/28/23 01/29/23 Range/Units 16:08 20:50 06:01 RDW (11.5-15.5) % Lymphocytes # (1.0-4.8) k/uL Sodium (137-145) mmol/L Chloride (98-107) mmol/L Carbon Dioxide (22-30) mmol/L BUN (9-20) mg/dL Glucose (74-99) mg/dL POC Glucose (mg/dL) 163 H 136 H 121 H (70-110) mg/dL 01/29/23 01/29/23 Range/Units 08:29 08:29 RDW 16.5 H (11.5-15.5) % Lymphocytes # 0.7 L (1.0-4.8) k/uL Sodium 134 L (137-145) mmol/L Chloride 85 L (98-107) mmol/L Carbon Dioxide 37 H (22-30) mmol/L BUN 24 H (9-20) mg/dL Glucose 172 H (74-99) mg/dL POC Glucose (mg/dL) (70-110) mg/dL
--- NOTE | 2023-01-29 14:58 | P.PN ---
Subjective Progress Note Date: 01/29/23 72 year old man with history of CAD s/p CABG, paroxysmal atrial fibrillation, HTN, HLD, DM presented for dyspnea. In the emergency room, patient was afebrile, 91/45, heart rate 73, 94% on room air. CBC is unremarkable. Basic metabolic panel shows a CO2 of 31, BUN of 23, creatinine 1.26. Magnesium was 1.4. Total bilirubin is 1.8, alkaline phosphatase was 147. Troponin was 0.014. BNP was 2610. EKG showed atrial fibrillation with controlled rate, no evidence of ischemia, right bundle branch block. Chest x-ray shows cardiomegaly with vascular congestion as well as bilateral pulmonary opacities consistent with heart failure. Case was discussed with the emergency room physician decision was made to admit the patient for further workup of heart failure exacerbation. Patient was diuresed with Lasix 60 mg IV twice a day. Echo cardiac showed EF of 30-35% with dilated right ventricle and severe pulmonary hypertension. Patient was seen and examined. No acute events overnight. Patient is -3956 mL fluid balance. Breathing has improved. He continues to complain of significant lower extremity swelling. General: non toxic, no distress, appears at stated age Derm: warm, dry Head: atraumatic, normocephalic, symmetric Eyes: EOMI, no lid lag, anicteric sclera Mouth: no lip lesion, mucus membranes moist Cardiovascular: S1S2 reg, no murmur Lungs: CTA bilateral, no rhonchi, no rales , no accessory muscle use Ext: no gross muscle atrophy, 2-3+ edema, no contractures Neuro: no focal neuro deficits Psych: Alert, oriented, appropriate affect Acute hypoxic respiratory failure Acute on chronic systolic heart failure exacerbation, EF 30-35% Acute on chronic right heart failure Hypochloremic metabolic alkalosis Paroxysmal atrial fibrillation Hypertension Hyperlipidemia Diabetes type 2 CAD CBC is relatively benign. BMP shows sodium of 134, chloride of 85, bicarbonate 37, BUN of 24, glucose 172. Magnesium is 1.8. Continue Lasix 60 mg IV twice a day for 1 more day. Started on Metolozone 5 mg PO QD. Anticipate he can be transitioned to oral Lasix tomorrow. Lasix is nephrotoxic, BMP ordered for tomorrow morning. Home oxygen evaluation prior to discharge. Patient educated on low salt diet and fluid restriction. Continue Metoprolol 100 mg PO QD, Entresto 24-26 mg PO BID, Aldactone 25 mg PO QD. A-Fib: Continue metoprolol 100 mg by mouth daily. Elqiuis 5 mg PO BID. Anticipate discharge in 1-2 days. Objective - Vital Signs Vital signs: Vital Signs Temp 98.0 F 01/29/23 08:13 Pulse 65 01/29/23 13:17 Resp 20 01/29/23 11:01 BP 128/74 01/29/23 11:01 Pulse Ox 93 L 01/29/23 11:01 FiO2 Intake & Output 01/28/23 01/29/23 01/29/23 18:59 06:59 18:59 Intake Total 476 120 480 Output Total 1999 2300 900 Balance -5349 -6873 -258 Weight 144.1 kg Intake: Oral 476 120 480 Output: Urine 19990 900 Other: Voiding Method Toilet Toilet Toilet # Voids 2 - Labs CBC & Chem 7: 01/29/23 08:29 01/29/23 08:29 Labs: Abnormal Lab Results - Last 24 Hours (Table) 01/28/23 01/28/23 01/29/23 Range/Units 16:08 20:50 06:01 RDW (11.5-15.5) % Lymphocytes # (1.0-4.8) k/uL Sodium (137-145) mmol/L Chloride (98-107) mmol/L Carbon Dioxide (22-30) mmol/L BUN (9-20) mg/dL Glucose (74-99) mg/dL POC Glucose (mg/dL) 163 H 136 H 121 H (70-110) mg/dL 01/29/23 01/29/23 01/29/23 Range/Units 08:29 08:29 11:47 RDW 16.5 H (11.5-15.5) % Lymphocytes # 0.7 L (1.0-4.8) k/uL Sodium 134 L (137-145) mmol/L Chloride 85 L (98-107) mmol/L Carbon Dioxide 37 H (22-30) mmol/L BUN 24 H (9-20) mg/dL Glucose 172 H (74-99) mg/dL POC Glucose (mg/dL) 119 H (70-110) mg/dL
[2023-01-29 16:59] LABS: Glucose,Whole Blood 105 mg/dL (70-110)
[2023-01-29] MEDS: ATORVASTATIN 80 MG TAB PO SCH (20:13)
[2023-01-29 20:45] LABS: Glucose,Whole Blood 125 mg/dL (70-110)
[2023-01-30 05:57] LABS: Glucose,Whole Blood 131 mg/dL (70-110)
[2023-01-30] MEDS: FUROSEMIDE 10 MG/ML 10 ML VIAL IV SCH ×2 (07:58→20:12)
[2023-01-30] MEDS: DAPAGLIFLOZIN PROPANEDIOL 10 MG TABLET PO SCH (07:58)
[2023-01-30] MEDS: metOLazone 5 MG TAB PO SCH (07:59)
[2023-01-30] MEDS: SACUBITRIL/VALSARTAN 24 MG-26 MG TABLET PO SCH ×2 (07:59→20:12)
[2023-01-30] MEDS: ASPIRIN 81 MG PO SCH ×2 (07:59→20:11)
[2023-01-30] MEDS: MULTIVITAMINS, THERA 1 EACH TAB PO SCH (07:59)
[2023-01-30] MEDS: APIXABAN 5 MG TAB PO SCH ×2 (07:59→20:11)
[2023-01-30] MEDS: METOPROLOL SUCCINATE (ER) 100 MG TAB.ER.24H PO SCH (07:59)
[2023-01-30] MEDS: SPIRONOLACTONE 25 MG TAB PO SCH (07:59)
[2023-01-30] MEDS: ISOSORBIDE MONONITRATE ER 30 MG TAB.ER.24H PO SCH (07:59)
[2023-01-30] MEDS: traMADol 50 MG TAB PO SCH ×3 (07:59→20:12)
--- NOTE | 2023-01-30 09:05 | P.PN ---
Subjective Progress Note Date: 01/30/23 HISTORY OF PRESENTING ILLNESS This is a pleasant 72-year-old gentleman who follows in the office with Dr. Medrano. Has a history of CAD with prior CABG, myopathy, prior atrial flutter ablation in 2020 and subsequent atrial fibrillation ablation in 2021 that was unsuccessful, and a persistent atrial fibrillation with controlled ventricular response he is anticoagulated. Also has a history of hypertension, hyperlipidemia and diabetes. He presented with complaints of shortness of breath. He initially presented a few days ago to his primary care provider with complaints of progressively worsening dyspnea on exertion over the last month at that time he was noted to have a 23 pound weight gain over the last month. His Lasix was increased and he presented again on Thursday for follow-up with no improvement in his symptoms. A chest x-ray that showed possible CHF exacerbation with cardiomegaly and mild to moderate central vascular congestion. He was advised to come to the emergency department. To probing. With elevated at 2610. He was initiated on IV Lasix. Upon examination he is overall feeling better. Continues to have lower extremity edema that is chronic and he feels unchanged. He does have edema in his abdomen that he feels is improving. 01/25/2023 The patient was seen and examined resting comfortably in bed. Overall feeling significantly better. His breathing has improved. Vital signs are stable. Echocardiogram with Doppler study showed ejection fraction 30-35% with severe pulmonary hypertension and dilated RV, moderate TR and mild MR. Echocardiogram in the past showed an ejection fraction of around 40-45%. Renal function has been stable. 01/27 Patient seen and examined. He has a good urine output however sought oxygen. Still does have significant pitting edema in his abdomen. Still likely has tended 20 pounds of fluid. 01/28 Patient seen and examined. Patient started on Zaroxolyn yesterday with dramatically increased urine output -4 L or last 24 hours. He still has significant lower extremity and abdominal edema. Creatinine has been stable 1.0. 01/29 Patient is seen today in follow-up. He has less shortness of breath and lower extremity edema but continues to have significant edema right greater than left. He is diuresed 3900 and the past 24 hours. Repeat potassium 3.8, BUN 24 creatinine 1.15. Telemetry is a sinus rhythm. 01/30 Patient is seen today in follow-up. He states his breathing is better, weight is down and edema to the lower extremities is down. He had output of 3700 ML's. Heart rate is in the 60s, blood pressure 116/76, pulse ox 90% on 2 L nasal cannula. Repeat blood work is pending at the time of this dictation. He has been continued on Lasix 60 mg every 12 hours along with Zaroxolyn 5 mg daily. PHYSICAL EXAMINATION Vital signs reviewed. CONSTITUTIONAL: No apparent distress. HEENT: Head is normocephalic. Pupils are equal, round. Sclerae anicteric. Mucous membranes of the mouth are moist. No JVD. No carotid bruit. CHEST EXAMINATION: Lungs are clear to auscultation. No chest wall tenderness is noted on palpation or with deep breathing. HEART EXAMINATION: Regular rate and rhythm. S1, S2 heard. No murmurs, gallops or rub. ABDOMEN: Soft, nontender. Positive bowel sounds. Mild abdominal edema. EXTREMITIES: 2+ peripheral pulses, 2+ left lower extremity edema, 2+ right lower extremity edema, no calf tenderness. NEUROLOGIC EXAMINATION: Patient is awake, alert and oriented x3. Assessment: #1 acute on chronic congestive heart failure with reduced ejection fraction #2 CAD with prior CABG #3 chronic persistent atrial fibrillation 4 hypertension #5 hyperlipidemia Plan: Continue heart failure regimen with Entresto, Aldactone, Metoprolol, Farxiga. Plan to continue current Lasix and Zaroxolyn for another 24 hours. Anticipate possible discharge tomorrow. patient follow-up with Dr. Arce one week after discharge. Nurse practitioner note has been reviewed, I agree with the documented findings and plan of care. Patient was seen and examined. Objective - Vital Signs Vital signs: Vital Signs Temp 97.6 F 01/30/23 03:31 Pulse 65 01/30/23 03:31 Resp 16 01/30/23 03:31 BP 115/69 01/30/23 03:31 Pulse Ox 96 01/30/23 03:31 FiO2 Intake & Output 01/29/23 01/30/23 01/30/23 18:59 06:59 18:59 Intake Total 820 Output Total 1300 2800 Balance -480 -2800 Weight 141.5 kg 141.5 kg Intake: Oral 820 Output: Urine 1300 2800 Other: Voiding Method Toilet Toilet # Voids 3 - Labs CBC & Chem 7: 01/29/23 08:29 01/29/23 08:29 Labs: Abnormal Lab Results - Last 24 Hours (Table) 01/29/23 01/29/23 01/29/23 Range/Units 08: 08:29 11:47 RDW 16.5 H (11.5-15.5) % Lymphocytes # 0.7 L (1.0-4.8) k/uL Sodium 134 L (137-145) mmol/L Chloride 85 L (98-107) mmol/L Carbon Dioxide 37 H (22-30) mmol/L BUN 24 H (9-20) mg/dL Glucose 172 H (74-99) mg/dL POC Glucose (mg/dL) 119 H (70-110) mg/dL 01/29/23 01/30/23 Range/Units 20:43 05:56 RDW (11.5-15.5) % Lymphocytes # (1.0-4.8) k/uL Sodium (137-145) mmol/L Chloride (98-107) mmol/L Carbon Dioxide (22-30) mmol/L BUN (9-20) mg/dL Glucose (74-99) mg/dL POC Glucose (mg/dL) 125 H 131 H (70-110) mg/dL
[2023-01-30 09:43] LABS: African American GFR (CKD) 65 (>60 ml/min/1.73 sqM); Blood Urea Nitrogen 29 mg/dL (9-20); Calcium 9.5 mg/dL (8.4-10.2); Chloride 83 mmol/L (98-107); Glucose 155 mg/dL (74-99); Non-African American GFR(CKD) 56 (>60 ml/min/1.73 sqM); Potassium 3.9 mmol/L (3.5-5.1); Sodium 135 mmol/L (137-145)
[2023-01-30 09:49] LABS: Anion Gap 14 mmol/L
[2023-01-30 09:50] LABS: Carbon Dioxide 38 mmol/L (22-30)
[2023-01-30 11:58] LABS: Glucose,Whole Blood 105 mg/dL (70-110)
--- NOTE | 2023-01-30 15:17 | P.PN ---
Subjective Progress Note Date: 01/30/23 72 year old man with history of CAD s/p CABG, paroxysmal atrial fibrillation, HTN, HLD, DM presented for dyspnea. In the emergency room, patient was afebrile, 91/45, heart rate 73, 94% on room air. CBC is unremarkable. Basic metabolic panel shows a CO2 of 31, BUN of 23, creatinine 1.26. Magnesium was 1.4. Total bilirubin is 1.8, alkaline phosphatase was 147. Troponin was 0.014. BNP was 2610. EKG showed atrial fibrillation with controlled rate, no evidence of ischemia, right bundle branch block. Chest x-ray shows cardiomegaly with vascular congestion as well as bilateral pulmonary opacities consistent with heart failure. Case was discussed with the emergency room physician decision was made to admit the patient for further workup of heart failure exacerbation. Patient was diuresed with Lasix 60 mg IV twice a day. Echo cardiac showed EF of 30-35% with dilated right ventricle and severe pulmonary hypertension. Patient was seen and examined. No acute events overnight. Patient is -3956 mL fluid balance. Breathing has improved. He continues to complain of significant lower extremity swelling. General: non toxic, no distress, appears at stated age Derm: warm, dry Head: atraumatic, normocephalic, symmetric Eyes: EOMI, no lid lag, anicteric sclera Mouth: no lip lesion, mucus membranes moist Cardiovascular: S1S2 reg, no murmur Lungs: CTA bilateral, no rhonchi, no rales , no accessory muscle use Ext: no gross muscle atrophy, 2-3+ edema, no contractures Neuro: no focal neuro deficits Psych: Alert, oriented, appropriate affect Acute kidney injury Acute hypoxic respiratory failure Acute on chronic systolic heart failure exacerbation, EF 30-35% Acute on chronic right heart failure Hypochloremic metabolic alkalosis Paroxysmal atrial fibrillation Hypertension Hyperlipidemia Diabetes type 2 CAD CBC is relatively benign. BMP shows sodium of 135, chloride of 83, BUN 29, Cr 1.26, bicarbonate 38, glucose 155. Magnesium is 1.8. Continue Lasix 60 mg IV twice a day for 1 more day. Started on Metolozone 5 mg PO QD. Anticipate he can be transitioned to oral Lasix tomorrow. Lasix is nephrotoxic, BMP ordered for tomorrow morning. Home oxygen evaluation prior to discharge. Patient educated on low salt diet and fluid restriction. Continue Metoprolol 100 mg PO QD, Entresto 24-26 mg PO BID, Aldactone 25 mg PO QD. A-Fib: Continue metoprolol 100 mg by mouth daily. Elqiuis 5 mg PO BID. Anticipate discharge in 1-2 days. Objective - Vital Signs Vital signs: Vital Signs Temp 97.9 F 01/30/23 07:48 Pulse 67 01/30/23 13:28 Resp 20 01/30/23 11:14 BP 139/78 01/30/23 11:14 Pulse Ox 94 L 01/30/23 11:14 FiO2 Intake & Output 01/29/23 01/30/23 01/30/23 18:59 06:59 18:59 Intake Total 820 1020 Output Total 1300 2800 900 Balance -480 -2800 120 Weight 141.5 kg 141.5 kg Intake: Oral 820 1020 Output: Urine 1300 2800 900 Other: Voiding Method Toilet Toilet Toilet # Voids 3 1 - Labs CBC & Chem 7: 01/29/23 08:29 01/30/23 08:51 Labs: Abnormal Lab Results - Last 24 Hours (Table) 01/29/23 01/30/23 01/30/23 Range/Units 20:43 05:56 08:51 Sodium 135 L (137-145) mmol/L Chloride 83 L (98-107) mmol/L Carbon Dioxide 38 H (22-30) mmol/L BUN 29 H (9-20) mg/dL Creatinine 1.26 H (0.66-1.25) mg/dL Glucose 155 H (74-99) mg/dL POC Glucose (mg/dL) 125 H 131 H (70-110) mg/dL
[2023-01-30 16:17] LABS: Glucose,Whole Blood 139 mg/dL (70-110)
[2023-01-30] MEDS: ATORVASTATIN 80 MG TAB PO SCH (20:11)
[2023-01-30 20:20] LABS: Glucose,Whole Blood 123 mg/dL (70-110)
[2023-01-31 06:19] LABS: Glucose,Whole Blood 124 mg/dL (70-110)
[2023-01-31] MEDS: SACUBITRIL/VALSARTAN 24 MG-26 MG TABLET PO SCH (08:59)
[2023-01-31] MEDS: ASPIRIN 81 MG PO SCH (08:59)
[2023-01-31] MEDS: SPIRONOLACTONE 25 MG TAB PO SCH (08:59)
[2023-01-31] MEDS: DAPAGLIFLOZIN PROPANEDIOL 10 MG TABLET PO SCH (08:59)
[2023-01-31] MEDS: traMADol 50 MG TAB PO SCH ×2 (08:59→14:29)
[2023-01-31] MEDS: ISOSORBIDE MONONITRATE ER 30 MG TAB.ER.24H PO SCH (08:59)
[2023-01-31] MEDS: metOLazone 5 MG TAB PO SCH (09:00)
[2023-01-31] MEDS: APIXABAN 5 MG TAB PO SCH (09:00)
[2023-01-31] MEDS: METOPROLOL SUCCINATE (ER) 100 MG TAB.ER.24H PO SCH (09:00)
[2023-01-31] MEDS: MULTIVITAMINS, THERA 1 EACH TAB PO SCH (09:00)
[2023-01-31 09:07] VITALS: RESP 18
[2023-01-31 09:53] LABS: African American GFR (CKD) 61 (>60 ml/min/1.73 sqM); Blood Urea Nitrogen 36 mg/dL (9-20); Calcium 9.6 mg/dL (8.4-10.2); Chloride 81 mmol/L (98-107); Glucose 180 mg/dL (74-99); Non-African American GFR(CKD) 53 (>60 ml/min/1.73 sqM); Potassium 3.7 mmol/L (3.5-5.1); Sodium 136 mmol/L (137-145)
[2023-01-31 09:59] LABS: Anion Gap 13 mmol/L
[2023-01-31 10:01] LABS: Carbon Dioxide 42 mmol/L (22-30)
[2023-01-31] MEDS: FUROSEMIDE 10 MG/ML 10 ML VIAL IV SCH (10:16)
[2023-01-31] MEDS ORDERED: FUROSEMIDE 20 MG TAB PO STA (10:17)
[2023-01-31 11:07] VITALS: PULSE 58
--- NOTE | 2023-01-31 11:35 | P.DS ---
Providers Date of admission: 01/23/23 15:42 Expected date of discharge: 01/31/23 Attending physician: Verona Sol MD Consults: 01/23/23 15:25 Consult Physician Routine Consulting Provider: Thompson Weber Consult Reason/Comments: chf Do you want consulting provider notified?: Yes Primary care physician: [facility] Course: 72 year old man with history of CAD s/p CABG, paroxysmal atrial fibrillation, HTN, HLD, DM presented for dyspnea. In the emergency room, patient was afebrile, 91/45, heart rate 73, 94% on room air. CBC is unremarkable. Basic metabolic panel shows a CO2 of 31, BUN of 23, creatinine 1.26. Magnesium was 1.4. Total bilirubin is 1.8, alkaline phosphatase was 147. Troponin was 0.014. BNP was 2610. EKG showed atrial fibrillation with controlled rate, no evidence of ischemia, right bundle branch block. Chest x-ray shows cardiomegaly with vascular congestion as well as bilateral pulmonary opacities consistent with heart failure. Case was discussed with the emergency room physician decision was made to admit the patient for further workup of heart failure exacerbation. Patient was diuresed with Lasix 60 mg IV twice a day. Echo cardiac showed EF of 30-35% with dilated right ventricle and severe pulmonary hypertension. Metolazone was added by cardiology. Patient diuresed well during his hospitalization. He did have an acute kidney injury and metabolic alkalosis likely related to forced diuresis. Patient was seen and examined. No acute events overnight. Patient is -3280 mL fluid balance. Breathing has improved. Anticipated discharge home today on oral diuretic if he is cleared from cardiology perspective. He should repeat a BMP within 3 days to be followed up with his PCP. Pertinent studies include a renal bladder ultrasound, echocardiogram. General: non toxic, no distress, appears at stated age Derm: warm, dry Head: atraumatic, normocephalic, symmetric Eyes: EOMI, no lid lag, anicteric sclera Mouth: no lip lesion, mucus membranes moist Cardiovascular: S1S2 reg, no murmur Lungs: CTA bilateral, no rhonchi, no rales , no accessory muscle use Ext: no gross muscle atrophy, 2-3+ edema, no contractures Neuro: no focal neuro deficits Psych: Alert, oriented, appropriate affect Discharge diagnoses: Acute kidney injury Acute hypoxic respiratory failure Acute on chronic systolic heart failure exacerbation, EF 30-35% Acute on chronic right heart failure Hypochloremic metabolic alkalosis Paroxysmal atrial fibrillation Hypertension Hyperlipidemia Diabetes type 2 CAD This complex discharge took 35 minutes to complete. Patient Condition at Discharge: Stable Plan - Discharge Summary Discharge Rx Participant: Yes New Discharge Prescriptions: No Action Isosorbide Mononitrate ER [Imdur] 30 mg PO QAM Atorvastatin [Lipitor] 80 mg PO HS metFORMIN HCL [Glucophage] 500 mg PO BID Multivitamins, Thera [Multivitamin (formulary)] 1 tab PO QAM Aspirin [Adult Low Dose Aspirin EC] 81 mg PO BID #1 tablet. Furosemide [Lasix] 40 mg PO DAILY Apixaban [Eliquis] 5 mg PO BID Metoprolol Succinate [Toprol XL] 100 mg PO DAILY traMADol HCL 50 mg PO 0800,1399,1999 Discharge Medication List Atorvastatin [Lipitor] 80 mg PO HS 03/12/20 [History] Isosorbide Mononitrate ER [Imdur] 30 mg PO QAM 03/12/20 [History] Multivitamins, Thera [Multivitamin (formulary)] 1 tab PO QAM 03/12/20 [History] metFORMIN HCL [Glucophage] 500 mg PO BID 03/12/20 [History] Aspirin [Adult Low Dose Aspirin EC] 81 mg PO BID #1 tablet. 03/15/20 [Rx] Apixaban [Eliquis] 5 mg PO BID 04/24/21 [History] Furosemide [Lasix] 40 mg PO DAILY 04/24/21 [History] Metoprolol Succinate [Toprol XL] 100 mg PO DAILY 01/23/23 [History] traMADol HCL 50 mg PO 799,01/27/23 [History] Follow up Appointment(s)/Referral(s): Spencer Wilkins DO [Primary Care Provider] - 02/04/23 1:20 pm Mau Arce MD [STAFF PHYSICIAN] - 02/06/23 9:30 am
[2023-01-31 11:45] LABS: Glucose,Whole Blood 132 mg/dL (70-110)
[2023-01-31 15:40] VITALS: BP 91/51; TEMP 98.1
--- NOTE | 2023-01-31 16:16 | P.PN ---
Subjective Progress Note Date: 01/31/23 HISTORY OF PRESENTING ILLNESS This is a pleasant 72-year-old gentleman who follows in the office with Dr. Ivan cartwright. Has a history of CAD with prior CABG, myopathy, prior atrial flutter ablation in 2020 and subsequent atrial fibrillation ablation in 2021 that was unsuccessful, and a persistent atrial fibrillation with controlled ventricular response he is anticoagulated. Also has a history of hypertension, hyperlipidemia and diabetes. He presented with complaints of shortness of breath. He initially presented a few days ago to his primary care provider with complaints of progressively worsening dyspnea on exertion over the last month at that time he was noted to have a 23 pound weight gain over the last month. His Lasix was increased and he presented again on Thursday for follow-up with no improvement in his symptoms. A chest x-ray that showed possible CHF exacerbation with cardiomegaly and mild to moderate central vascular congestion. He was advised to come to the emergency department. To probing. With elevated at 2610. He was initiated on IV Lasix. 01/25/2023 The patient was seen and examined resting comfortably in bed. Overall feeling significantly better. His breathing has improved. Vital signs are stable. Echocardiogram with Doppler study showed ejection fraction 30-35% with severe pulmonary hypertension and dilated RV, moderate TR and mild MR. Echocardiogram in the past showed an ejection fraction of around 40-45%. Renal function has been stable. 01/27 Patient seen and examined. He has a good urine output however sought oxygen. Still does have significant pitting edema in his abdomen. Still likely has tended 20 pounds of fluid. 01/28 Patient seen and examined. Patient started on Zaroxolyn yesterday with dramatically increased urine output -4 L or last 24 hours. He still has significant lower extremity and abdominal edema. Creatinine has been stable 1.0. 01/29 Patient is seen today in follow-up. He has less shortness of breath and lower extremity edema but continues to have significant edema right greater than left. He is diuresed 3900 and the past 24 hours. Repeat potassium 3.8, BUN 24 creatinine 1.15. Telemetry is a sinus rhythm. 01/30 Patient is seen today in follow-up. He states his breathing is better, weight is down and edema to the lower extremities is down. He had output of 3700 ML's. Heart rate is in the 60s, blood pressure 116/76, pulse ox 90% on 2 L nasal cannula. Repeat blood work is pending at the time of this dictation. He has been continued on Lasix 60 mg every 12 hours along with Zaroxolyn 5 mg daily. 01/31 Patient seen and examined. He wants to go home. He reports swelling in legs continues to improve. Pulse ox 96% on room air. Denies any lightheadedness or dizziness. No chest pain. PHYSICAL EXAMINATION Vital signs reviewed. CONSTITUTIONAL: No apparent distress. HEENT: Head is normocephalic. Pupils are equal, round. Sclerae anicteric. Mucous membranes of the mouth are moist. No JVD. No carotid bruit. CHEST EXAMINATION: Lungs are clear to auscultation. No chest wall tenderness is noted on palpation or with deep breathing. HEART EXAMINATION: Regular rate and rhythm. S1, S2 heard. No murmurs, gallops or rub. ABDOMEN: Soft, nontender. Positive bowel sounds. Mild abdominal edema. EXTREMITIES: 2+ peripheral pulses, 1+ left lower extremity edema, 2+ right lower extremity edema, no calf tenderness. NEUROLOGIC EXAMINATION: Patient is awake, alert and oriented x3. Assessment: #1 acute on chronic congestive heart failure with reduced ejection fraction #2 CAD with prior CABG #3 chronic persistent atrial fibrillation #4 hypertension #5 hyperlipidemia Plan: Patient is cleared for discharge home from cardiology standpoint. Discussed monitoring weight at home daily. Continue heart failure regimen. Plan to continue current Lasix and Zaroxolyn. Patient follow-up with Dr. Arce one week after discharge. Nurse practitioner note has been reviewed, I agree with the documented findings and plan of care. Patient was seen and examined. Objective - Vital Signs Vital signs: Vital Signs Temp 98.0 F 01/31/23 11:06 Pulse 58 L 01/31/23 11:06 Resp 18 01/31/23 11:06 BP 100/64 01/31/23 11:06 Pulse Ox 96 01/31/23 11:06 FiO2 Intake & Output 01/30/23 01/31/23 01/31/23 18:59 06:59 18:59 Intake Total 1380 370 Output Total 2100 2500 775 Balance -720 -2500 -405 Weight 141.5 kg 139.4 kg Intake: IV 10 Invasive Line 2 10 Oral 1380 360 Output: Urine 2100 2500 775 Other: Voiding Method Toilet Toilet Toilet # Voids 3 1 - Labs CBC & Chem 7: 01/29/23 08:29 01/31/23 08:43 Labs: Abnormal Lab Results - Last 24 Hours (Table) 01/30/23 01/30/23 01/31/23 Range/Units 16:15 20:18 06:17 Sodium (137-145) mmol/L Chloride (98-107) mmol/L Carbon Dioxide (22-30) mmol/L BUN (9-20) mg/dL Creatinine (0.66-1.25) mg/dL Glucose (74-99) mg/dL POC Glucose (mg/dL) 139 H 123 H 124 H (70-110) mg/dL 01/31/23 Range/Units 08:43 Sodium 136 L (137-145) mmol/L Chloride 81 L (98-107) mmol/L Carbon Dioxide 42 H* (22-30) mmol/L BUN 36 H (9-20) mg/dL Creatinine 1.32 H (0.66-1.25) mg/dL Glucose 180 H (74-99) mg/dL POC Glucose (mg/dL) (70-110) mg/dL
[2023-01-31 16:36] LABS: Glucose,Whole Blood 142 mg/dL (70-110)
[2023-02-01] MEDS ORDERED: FUROSEMIDE 20 MG TAB PO SCH (09:00)
== END 2023-01-31 17:43 | disposition home or self-care (01) | DRG 291 ==
LOC: EC 12:57 → 3SCARD 15:42
PROVIDERS: ADMIT Internal Medicine; ATTEND Internal Medicine
DX: I11.0 Hypertensive heart disease with heart failure (principal); I50.23 Acute on chronic systolic (congestive) heart failure; J96.01 Acute respiratory failure with hypoxia; I48.19 Other persistent atrial fibrillation; N17.9 Acute kidney failure, unspecified; E87.3 Alkalosis; I27.20 Pulmonary hypertension, unspecified; E87.8 Other disorders of electrolyte and fluid balance, not elsewhere classified; Z95.1 Presence of aortocoronary bypass graft; Z79.01 Long term (current) use of anticoagulants; E11.9 Type 2 diabetes mellitus without complications; I08.1 Rheumatic disorders of both mitral and tricuspid valves; E78.5 Hyperlipidemia, unspecified; I25.10 Atherosclerotic heart disease of native coronary artery without angina pectoris; G47.30 Sleep apnea, unspecified; I45.10 Unspecified right bundle-branch block; Z87.891 Personal history of nicotine dependence; Z85.810 Personal history of malignant neoplasm of tongue; I25.2 Old myocardial infarction; Z79.899 Other long term (current) drug therapy; Z79.82 Long term (current) use of aspirin; Z79.84 Long term (current) use of oral hypoglycemic drugs; Z82.49 Family history of ischemic heart disease and other diseases of the circulatory system
CPT/HCPCS: 36415; 76770; 80048; 80053; 83735; 83880; 84484; 85025; 85610; 85730; 93005; 93306; 94760; 96374; 99285

== ENCOUNTER → 2023-01-23 | Outpatient (CLI) | payer MEDICARE ==
--- NOTE | 2023-01-23 11:47 | XR ---
EXAMINATION TYPE: XR chest 2V DATE OF EXAM: 01/23/2023 COMPARISON: Chest x-ray 2 days ago HISTORY: Shortness of breath TECHNIQUE: Frontal and lateral views of the chest are obtained. FINDINGS: Overlying sternal wires and mediastinal clips are redemonstrated. Persistent cardiomegaly with mild central vascular congestion. No pleural effusion or pneumothorax seen. Degenerative change bilateral shoulders redemonstrated. Large bridging osteophytes in the anterior thoracic spine are red emonstrated. IMPRESSION: Possible CHF exacerbation as there is cardiomegaly with mild to moderate central vascula r congestion redemonstrated. No significant change from recent x-ray.
== END | disposition home or self-care (01) ==
LOC: RADXRYALE 11:24
PROVIDERS: ATTEND Family Medicine
DX: R06.02 Shortness of breath (principal)
CPT/HCPCS: 71046